=== PATIENT | male | born 1965 | race Two or more races ===

== ENCOUNTER 2022-05-02 16:31 | Inpatient (IN) | payer MEDICAID, OTHER ==
[~2022-05-02] VITALS: Ht 180.3 cm; Wt 82.9 kg
[2022-05-02] MEDS ORDERED: HYDROmorphone HCL 2 MG/ML VL/or syr IV ONE (18:00)
[2022-05-02] MEDS ORDERED: METOCLOPRAMIDE HCL 5MG/ml INJ 2ml VIAL IV ONE (18:00)
[2022-05-02 18:28] LABS: Basophils # (auto) 0.1 10 ^3/uL (0-0.2); Basophils % (auto) 0.3 % (0.0-2.0); Eosinophils # (auto) 0.2 10 ^3/uL (0-0.8); Eosinophils % (auto) 1.3 % (0.0-7.0); Hematocrit 50.9 % (41.0-53.0); Hemoglobin 16.5 g/dL (13.5-17.5); Lymphocytes # (auto) 2.6 10 ^3/uL (0.4-5.4); Mean Corpuscular Hemoglobin 28.3 pg (28.0-32.0); Mean Corpuscular Hgb Conc. 32.3 g/dL (32.0-36.0); Mean Corpuscular Volume 87.4 fL (80.0-100.0); Monocytes # (auto) 0.7 10 ^3/uL (0-1.3); Monocytes % (auto) 4.6 % (0.0-12.0); Neutrophils # (auto) 11.7 10 ^3/uL (1.6-8.6); Neutrophils % (auto) 76.8 % (37.0-80.0); Red Blood Cells 5.83 10^6/uL (4.5-5.90); Red Cell Distribution Width 14.9 % (11.8-14.3); White Blood Cell 15.2 10^3/uL (4.4-10.8)
[2022-05-02 18:44] LABS: Albumin 4.3 g/dL (3.4-5.0); Calcium 9.1 mg/dL (8.5-10.1); Magnesium 2.6 mg/dL (1.6-2.6); Potassium 3.6 mmol/L (3.5-5.1)
[2022-05-02 18:47] LABS: BUN/Creatinine Ratio 16.2; Bilirubin, Total 0.3 mg/dL (0.2-1.0); Total Protein 8.1 g/dL (6.4-8.2)
[2022-05-02] MEDS ORDERED: SODIUM CHLORIDE 0.9% 1,000 ML IV ONE (19:30)
[2022-05-02 20:21] LABS: INR 1.02 (0.9-1.15); Partial Thromboplastin Time 26.4 sec (24.6-33.4)
[2022-05-02 21:04] LABS: Urine Bacteria NONE SEEN /hpf (None Seen); Urine Blood Negative /uL (Negative); Urine Hyaline Cast FEW /lpf (0 - 2); Urine Mucus FEW (None Seen); Urine WBC 3 /hpf (0 - 3)
[2022-05-02] MEDS ORDERED: TEMAZEPAM 15 MG CAP PO PRN (21:30)
[2022-05-02] MEDS ORDERED: ACETAMINOPHEN 325 MG TAB PO PRN (21:30)
[2022-05-02] MEDS ORDERED: PANTOPRAZOLE 40 MG TAB PO ONE (21:30)
[2022-05-02] MEDS ORDERED: cefTRIAXone 1GM/50ML D5W 50 ML IV ONE (21:30)
[2022-05-02] MEDS: HYDROcodone-ACET 5/325MG TAB PO PRN (22:01)
[2022-05-02] MEDS: levETIRAcetam 500 MG TAB PO SCH (22:03)
[2022-05-03] MEDS: ONDANSETRON HCL 4 MG/2 ML VIAL IV PRN (00:07)
[2022-05-03] MEDS: cloNIDine HCL 0.1 MG TAB PO PRN (00:08)
[2022-05-03] MEDS ORDERED: KETOROLAC TROMETH 30 MG/ML 1ML VIAL IV ONE (04:45)
[2022-05-03] MEDS ORDERED: hydrALAZINE HCL 20 MG/ML VL IV ONE (04:45)
[2022-05-03] MEDS: buPROPion HCL 75 MG TAB PO SCH ×2 (07:36→18:33)
[2022-05-03] MEDS: PANTOPRAZOLE 40 MG TAB PO SCH (09:28)
[2022-05-03] MEDS: lamoTRIgine 100 MG TAB PO SCH (09:28)
[2022-05-03] MEDS: amLODIPine BESYLATE 5 MG TAB PO SCH (09:29)
[2022-05-03] MEDS: ENOXAPARIN SOD 40 MG/0.4 ML SYRINGE SC SCH (09:29)
[2022-05-03] MEDS: levETIRAcetam 500 MG TAB PO SCH ×2 (09:29→21:15)
[2022-05-03] MEDS ORDERED: lamoTRIgine 25 MG TAB PO SCH (10:00)
[2022-05-03] MEDS: KETOROLAC TROMETH 30 MG/ML 1ML VIAL IV PRN ×2 (12:57→18:33)
[2022-05-03 13:00] VITALS: BP 145/95
[2022-05-03 13:39] LABS: Basophils # (auto) 0.1 10 ^3/uL (0-0.2); Basophils % (auto) 0.5 % (0.0-2.0); Eosinophils # (auto) 0 10 ^3/uL (0-0.8); Eosinophils % (auto) 0.1 % (0.0-7.0); Hematocrit 52.4 % (41.0-53.0); Hemoglobin 16.7 g/dL (13.5-17.5); Lymphocytes # (auto) 2.2 10 ^3/uL (0.4-5.4); Lymphocytes % (auto) 13.5 % (10.0-50.0); Mean Corpuscular Hemoglobin 28.2 pg (28.0-32.0); Mean Corpuscular Hgb Conc. 31.9 g/dL (32.0-36.0); Mean Corpuscular Volume 88.3 fL (80.0-100.0); Monocytes # (auto) 1.1 10 ^3/uL (0-1.3); Monocytes % (auto) 7.2 % (0.0-12.0); Neutrophils # (auto) 12.6 10 ^3/uL (1.6-8.6); Neutrophils % (auto) 78.7 % (37.0-80.0); Red Blood Cells 5.93 10^6/uL (4.5-5.90); Red Cell Distribution Width 14.5 % (11.8-14.3)
[2022-05-03 13:44] LABS: Calcium 8.9 mg/dL (8.5-10.1); Potassium 4.3 mmol/L (3.5-5.1)
[2022-05-03 13:48] LABS: BUN/Creatinine Ratio 11.3; Bilirubin, Total 0.6 mg/dL (0.2-1.0); Total Protein 7.8 g/dL (6.4-8.2)
[2022-05-03] MEDS: HYDROcodone-ACET 5/325MG TAB PO PRN ×2 (14:57→19:58)
[2022-05-03 17:00] VITALS: BP 156/103
[2022-05-03] MEDS: metroNIDAZOLE 500MG/100ML 100 ML IV SCH (18:33)
[2022-05-03] MEDS: cefTRIAXone 1GM/50ML D5W 50 ML IV SCH (21:15)
[2022-05-03 22:00] VITALS: BP 129/78
[2022-05-04] MEDS: metroNIDAZOLE 500MG/100ML 100 ML IV SCH ×4 (00:22→18:11)
[2022-05-04] MEDS: HYDROcodone-ACET 5/325MG TAB PO PRN ×3 (01:06→12:57)
[2022-05-04] MEDS: KETOROLAC TROMETH 30 MG/ML 1ML VIAL IV PRN ×3 (04:05→18:12)
[2022-05-04] MEDS: ONDANSETRON HCL 4 MG/2 ML VIAL IV PRN ×2 (04:13→20:51)
[2022-05-04 05:52] VITALS: BP 158/99
[2022-05-04 06:14] LABS: Basophils # (auto) 0 10 ^3/uL (0-0.2); Basophils % (auto) 0.5 % (0.0-2.0); Eosinophils # (auto) 0.1 10 ^3/uL (0-0.8); Eosinophils % (auto) 1.1 % (0.0-7.0); Hematocrit 48.1 % (41.0-53.0); Hemoglobin 16.3 g/dL (13.5-17.5); Lymphocytes # (auto) 2.4 10 ^3/uL (0.4-5.4); Lymphocytes % (auto) 23.9 % (10.0-50.0); Mean Corpuscular Hemoglobin 29.8 pg (28.0-32.0); Mean Corpuscular Hgb Conc. 33.9 g/dL (32.0-36.0); Mean Corpuscular Volume 87.9 fL (80.0-100.0); Monocytes # (auto) 0.9 10 ^3/uL (0-1.3); Monocytes % (auto) 9.1 % (0.0-12.0); Neutrophils # (auto) 6.5 10 ^3/uL (1.6-8.6); Neutrophils % (auto) 65.4 % (37.0-80.0); Nucleated Red Blood Cells % 0.1 %; Red Blood Cells 5.47 10^6/uL (4.5-5.90); Red Cell Distribution Width 14.6 % (11.8-14.3); White Blood Cell 9.9 10^3/uL (4.4-10.8)
[2022-05-04 06:27] LABS: BUN/Creatinine Ratio 15.7; Calcium 8.9 mg/dL (8.5-10.1); Potassium 4.2 mmol/L (3.5-5.1)
[2022-05-04] MEDS: buPROPion HCL 75 MG TAB PO SCH ×2 (06:30→18:12)
[2022-05-04] MEDS: ENOXAPARIN SOD 40 MG/0.4 ML SYRINGE SC SCH (08:30)
[2022-05-04] MEDS: levETIRAcetam 500 MG TAB PO SCH ×2 (08:31→20:40)
[2022-05-04] MEDS: PANTOPRAZOLE 40 MG TAB PO SCH (08:31)
[2022-05-04] MEDS: lamoTRIgine 100 MG TAB PO SCH (08:32)
[2022-05-04] MEDS: amLODIPine BESYLATE 5 MG TAB PO SCH (08:35)
[2022-05-04 09:00] VITALS: BP 147/96
[2022-05-04 13:00] VITALS: BP 148/97
[2022-05-04 16:35] VITALS: BP 129/90
[2022-05-04] MEDS: cefTRIAXone 1GM/50ML D5W 50 ML IV SCH (20:40)
[2022-05-04 21:55] VITALS: BP 140/108
[2022-05-05] MEDS: metroNIDAZOLE 500MG/100ML 100 ML IV SCH ×4 (00:17→18:05)
[2022-05-05] MEDS: ONDANSETRON HCL 4 MG/2 ML VIAL IV PRN (01:57)
[2022-05-05] MEDS: KETOROLAC TROMETH 30 MG/ML 1ML VIAL IV PRN ×3 (01:57→18:15)
[2022-05-05] MEDS: cloNIDine HCL 0.1 MG TAB PO PRN (03:40)
[2022-05-05 05:00] VITALS: BP 140/93
[2022-05-05] MEDS: buPROPion HCL 75 MG TAB PO SCH ×2 (06:16→18:05)
[2022-05-05 08:00] VITALS: BP 106/80
[2022-05-05 08:58] VITALS: BP 106/80
[2022-05-05] MEDS: amLODIPine BESYLATE 5 MG TAB PO SCH (09:36)
[2022-05-05] MEDS: levETIRAcetam 500 MG TAB PO SCH ×2 (09:36→21:15)
[2022-05-05] MEDS: lamoTRIgine 100 MG TAB PO SCH (09:36)
[2022-05-05] MEDS: ENOXAPARIN SOD 40 MG/0.4 ML SYRINGE SC SCH (09:37)
[2022-05-05 13:00] VITALS: BP_SYST 124; BP_SYST 127; BP_DIAS 67; BP_DIAS 68
[2022-05-05] MEDS ORDERED: diphenhdrAMINE HCL 50 MG/1 ML VL ONE (15:06)
[2022-05-05 17:00] VITALS: BP 113/84
[2022-05-05] MEDS: cefTRIAXone 1GM/50ML D5W 50 ML IV SCH (21:15)
[2022-05-05] MEDS: HYDROcodone-ACET 5/325MG TAB PO PRN (21:26)
[2022-05-05 22:00] VITALS: BP 119/77
[2022-05-06] MEDS: metroNIDAZOLE 500MG/100ML 100 ML IV SCH ×5 (00:49→23:38)
[2022-05-06 05:00] VITALS: BP 134/94
[2022-05-06] MEDS: buPROPion HCL 75 MG TAB PO SCH ×2 (06:26→18:06)
[2022-05-06 08:00] VITALS: BP 138/98
[2022-05-06 09:08] VITALS: BP 138/98
[2022-05-06] MEDS: lamoTRIgine 100 MG TAB PO SCH (09:09)
[2022-05-06] MEDS: levETIRAcetam 500 MG TAB PO SCH ×2 (09:09→21:38)
[2022-05-06] MEDS: ENOXAPARIN SOD 40 MG/0.4 ML SYRINGE SC SCH (09:10)
[2022-05-06] MEDS: amLODIPine BESYLATE 5 MG TAB PO SCH (09:10)
[2022-05-06 12:49] VITALS: BP 130/80
[2022-05-06 16:48] VITALS: BP 133/77
[2022-05-06] MEDS: cefTRIAXone 1GM/50ML D5W 50 ML IV SCH (20:40)
[2022-05-06 22:00] VITALS: BP 163/120
[2022-05-06] MEDS: cloNIDine HCL 0.1 MG TAB PO PRN (22:33)
[2022-05-07] MEDS: KETOROLAC TROMETH 30 MG/ML 1ML VIAL IV PRN (02:29)
[2022-05-07 05:00] VITALS: BP 118/81
[2022-05-07] MEDS: metroNIDAZOLE 500MG/100ML 100 ML IV SCH ×3 (06:09→18:00)
[2022-05-07] MEDS: buPROPion HCL 75 MG TAB PO SCH (06:17)
[2022-05-07 09:30] VITALS: BP 133/84
[2022-05-07] MEDS: ENOXAPARIN SOD 40 MG/0.4 ML SYRINGE SC SCH (10:20)
[2022-05-07] MEDS: amLODIPine BESYLATE 5 MG TAB PO SCH (10:20)
[2022-05-07] MEDS: levETIRAcetam 500 MG TAB PO SCH (10:20)
[2022-05-07] MEDS: lamoTRIgine 100 MG TAB PO SCH (10:20)
[2022-05-07 12:39] VITALS: BP 129/92
[2022-05-07] MEDS ORDERED: CEPH-322 PO (14:11)
[2022-05-07] MEDS ORDERED: METR500T PO (14:11)
[2022-05-07 16:48] VITALS: BP 128/90
[2022-05-07 17:26] VITALS: BP 133/84
== END 2022-05-07 18:36 | disposition home or self-care (01) | DRG 249 ==
LOC: ER 16:31 → OVERFLOW 21:33 → WEST WING 23:53
PROVIDERS: ADMIT Nurse Practitioner; ATTEND Hospitalist
DX: K52.9 Noninfective gastroenteritis and colitis, unspecified (principal); F17.210 Nicotine dependence, cigarettes, uncomplicated; I10 Essential (primary) hypertension; R73.9 Hyperglycemia, unspecified; G40.909 Epilepsy, unspecified, not intractable, without status epilepticus; Z20.822 Contact with and (suspected) exposure to COVID-19; Z86.73 Personal history of transient ischemic attack (TIA), and cerebral infarction without residual deficits
CPT/HCPCS: 36415; 71045; 74176; 80048; 80053; 81001; 83605; 83690; 83735; 84443; 84484; 85025; 85610; 85730; 93005; 96361; 96365; 96375; G0378; J0696; J1885; J2405; J3490

== ENCOUNTER 2023-08-27 08:48 | Emergency (ER) | payer MEDICAID ==
[~2023-08-27] VITALS: Ht 177.8 cm; Wt 74.7 kg
[~2023-08-27 08:48] MED LIST: CEPH250C PO; METR500T PO
[2023-08-27 09:19] VITALS: BP 179/118; RESP 18; O2SAT 98
[2023-08-27 09:23] VITALS: PULSE 67
[2023-08-27] MEDS ORDERED: cloNIDine HCL 0.1 MG TAB ONE (09:23)
[2023-08-27] MEDS ORDERED: cloNIDine HCL 0.1 MG TAB PO ONE (09:30)
[2023-08-27 09:38] LABS: Basophils # (auto) 0.1 10 ^3/uL (0-0.2); Eosinophils # (auto) 0.1 10 ^3/uL (0-0.8); Eosinophils % (auto) 0.5 % (0.0-7.0); Hemoglobin 18.6 g/dL (13.5-17.5); Lymphocytes # (auto) 1.4 10 ^3/uL (0.4-5.4); Nucleated Red Blood Cells % 0.2 %
[2023-08-27 09:40] LABS: Basophils % (auto) 0.6 % (0.0-2.0); Hematocrit 55.4 % (41.0-53.0); Lymphocytes % (auto) 10.3 % (10.0-50.0); Mean Corpuscular Hemoglobin 30.2 pg (28.0-32.0); Mean Corpuscular Hgb Conc. 33.6 g/dL (32.0-36.0); Mean Corpuscular Volume 89.7 fL (80.0-100.0); Monocytes # (auto) 0.7 10 ^3/uL (0-1.3); Neutrophils # (auto) 11.6 10 ^3/uL (1.6-8.6); Neutrophils % (auto) 83.6 % (37.0-80.0); Red Blood Cells 6.18 10^6/uL (4.5-5.90); Red Cell Distribution Width 13.4 % (11.8-14.3); White Blood Cell 13.9 10^3/uL (4.4-10.8)
[2023-08-27 09:57] LABS: INR 1.17 (0.9-1.15); Partial Thromboplastin Time 30.6 SEC (24.5-34.5); Prothrombin Time 12.2 sec (9.3-11.8)
[2023-08-27 10:03] LABS: Alanine Aminotransferase 32 U/L (7-40); Albumin 4.9 g/dL (3.2-4.8); Alkaline Phosphatase 58 U/L (46-116); Anion Gap 4 (5-15); Aspartate Aminotransferase 22 U/L (13-40); BUN/Creatinine Ratio 14.7 (10.0-20.0); Bilirubin, Total 0.5 mg/dL (0.2-1.0); Blood Urea Nitrogen 16 mg/dL (9-23); Calcium 9.9 mg/dL (8.5-10.1); Carbon Dioxide 29 mmol/L (20-30); Chloride 104 mmol/L (98-107); Glucose 107 mg/dL (74-106); Sodium 137 mmol/L (136-145); Total Protein 7.5 g/dL (5.7-8.2)
[2023-08-27 10:25] LABS: Magnesium 2.5 mg/dL (1.6-2.6)
[2023-08-27] MEDS ORDERED: CLOPIDOGREL BISULFATE 75 MG TAB PO ONE (10:45)
[2023-08-28] MEDS ORDERED: LEVE500T40 PO (19:33)
== END 2023-08-27 12:50 | disposition left against medical advice (07) ==
LOC: ER 08:48
DX: G45.9 Transient cerebral ischemic attack, unspecified (principal); I10 Essential (primary) hypertension; F17.210 Nicotine dependence, cigarettes, uncomplicated; Z86.73 Personal history of transient ischemic attack (TIA), and cerebral infarction without residual deficits
CPT/HCPCS: 36415; 70450; 71045; 80053; 82962; 83735; 83880; 84484; 85025; 85610; 85730; 93005

== ENCOUNTER 2023-08-28 17:52 | Emergency (ER) | payer MEDICAID ==
[~2023-08-28] VITALS: Ht 177.8 cm; Wt 75.0 kg
[2023-08-28] MEDS ORDERED: levETIRAcetam 1000 mg/100ml 100 ML IV ONE (18:30)
[2023-08-28 19:04] LABS: Basophils # (auto) 0.1 10 ^3/uL (0-0.2); Basophils % (auto) 0.7 % (0.0-2.0); Eosinophils # (auto) 0.2 10 ^3/uL (0-0.8); Hematocrit 52.7 % (41.0-53.0); Hemoglobin 17.6 g/dL (13.5-17.5); Lymphocytes # (auto) 2.8 10 ^3/uL (0.4-5.4); Lymphocytes % (auto) 24.6 % (10.0-50.0); Mean Corpuscular Hemoglobin 29.9 pg (28.0-32.0); Mean Corpuscular Hgb Conc. 33.3 g/dL (32.0-36.0); Mean Corpuscular Volume 89.6 fL (80.0-100.0); Monocytes # (auto) 0.9 10 ^3/uL (0-1.3); Monocytes % (auto) 7.8 % (0.0-12.0); Neutrophils # (auto) 7.5 10 ^3/uL (1.6-8.6); Neutrophils % (auto) 64.9 % (37.0-80.0); Nucleated Red Blood Cells % 0.2 %; Red Blood Cells 5.88 10^6/uL (4.5-5.90); Red Cell Distribution Width 13.4 % (11.8-14.3); White Blood Cell 11.5 10^3/uL (4.4-10.8)
[2023-08-28 19:23] LABS: Alanine Aminotransferase 26 U/L (7-40); Albumin 4.7 g/dL (3.2-4.8); Alkaline Phosphatase 59 U/L (46-116); Anion Gap 7 (5-15); Aspartate Aminotransferase 22 U/L (13-40); BUN/Creatinine Ratio 16.2 (10.0-20.0); Bilirubin, Total 0.4 mg/dL (0.2-1.0); Blood Urea Nitrogen 17 mg/dL (9-23); Calcium 9.3 mg/dL (8.7-10.4); Carbon Dioxide 27 mmol/L (20-30); Chloride 102 mmol/L (98-107); Glucose 92 mg/dL (74-106); Potassium 4.5 mmol/L (3.5-5.1); Sodium 136 mmol/L (136-145); Total Protein 7.4 g/dL (5.7-8.2)
[2023-08-28] MEDS ORDERED: LEVE500T40 PO (19:33)
[2023-08-28 22:06] VITALS: BP 159/80; PULSE 71; RESP 20; TEMP 97.5; O2SAT 97
== END 2023-08-28 22:08 | disposition home or self-care (01) ==
LOC: ER 17:52
DX: G40.909 Epilepsy, unspecified, not intractable, without status epilepticus (principal); I10 Essential (primary) hypertension; F17.210 Nicotine dependence, cigarettes, uncomplicated; F15.90 Other stimulant use, unspecified, uncomplicated; Z86.73 Personal history of transient ischemic attack (TIA), and cerebral infarction without residual deficits; Z79.899 Other long term (current) drug therapy
CPT/HCPCS: 36415; 70450; 80053; 80320; 85025; 93005; 96374; 99285; J1953

== ENCOUNTER 2024-12-24 14:22 | Inpatient (IN) | payer MEDICAID, OTHER ==
[~2024-12-24] VITALS: Ht 180.3 cm; Wt 73.1 kg
[2024-12-24] VITALS (28 sets, daily range): BP systolic 111–184; BP diastolic 67–117; PULSE 76–103; RESP 17–28; TEMP 32.5; O2SAT 96–100
[~2024-12-24 14:22] MED LIST changes: +AMLO1TAB22 PO; +ASPI325T6 PO; +BUPR-346 PO; -CEPH250C PO; +LACO200T PO; -METR500T PO; +OMEP20TA PO
[2024-12-24] MEDS: ETOMIDATE (2MG/ML) 20ML VIAL IV ONE (14:22)
[2024-12-24] MEDS: SUCCINYLCHOLINE CHLORIDE 20 MG/ML 10ML VIAL IV ONE (14:23)
[2024-12-24] MEDS: MIDAZOLAM DRIP 50 mg/50mL 50 ML IV SCH (14:27)
--- NOTE | 2024-12-24 14:33 | ED.PDOC ---
HPI (NEURO) HPI Comments 59 y.o male presents to the ED via EMS s/p seizure. EMS reports patient's girlfriend called 911 after patient began seizing. EMS reports patient was seizing for about half an hour and gave 5mg of versed. Girlfriend was a poor historian, unable to obtain any medical history. Patient resides in a mobile home with girlfriend and no family member was present. Patient also had a blood glucose of 400 on scene and had nonreactive pupils. 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 Nanny, Oxygen, Treatment (5mg Versed ) Seizure Quality: Tonic-clonic History of: Other (unknown/unobtainable ) Modifying factors: Other Associated Signs and Symptoms: Altered Mental Status Past Medical History PAST MEDICAL HISTORY: Unobtainable Surgical History: Unobtainable Family History Family History: Unobtainable Social History Smoker: Unobtainable Alcohol: Unobtainable Drugs: Unobtainable Lives In: Unobtainable Constitutional: denies: chills, diaphoresis, fatigue, fever, malaise, sweats, weakness, others EENTM: denies: blurred vision, double vision, ear bleeding, ear discharge, ear drainage, ear pain, ear ringing, eye pain, eye redness, hearing loss, mouth pa in, mouth swelling, nasal discharge, nose bleeding, nose congestion, nose pain, photophobia, tearing, throat pain, throat swelling, voice changes, others Respiratory: reports: shortness of breath; denies: cough, hemoptysis, orthopnea, SOB at rest, SOB with excertion, stridor, wheezing, others Cardiovascular: denies: chest pain, dizzy spells, diaphoresis, Dyspnea on exertion, edema, irregular heart beat, left arm pain, lightheadedness, palpitat ions, PND, syncope, others Gastrointestinal: denies: abdomen distended, abdominal pain, blood streaked bow els, constipated, diarrhea, dysphagia, difficulty swallowing, hematemesis, melena, nausea, poor appetite, poor fluid intake, rectal bleeding, rectal pain, vomiting, others Genitourinary: denies: burning, dysuria, flank pain, frequency, hematuria, incontinence, penile discharge, penile sore, pain, testicle pain, testicle swelling, urgency, others Neurological: reports: seizure; denies: dizziness, fainting, headache, left sided numbness, left sided weakness, numbness, paresthesia, pre-existing deficit, right sided numbness, right sided weakness, speech problems, tingling, tremors, weakness, others Musculoskeletal: denies: back pain, gout, joint pain, joint swelling, muscle p ain, muscle stiffness, neck pain, others Integumetry: denies: bruises, change in color, change in hair/nails, dryness, laceration, lesions, lumps, rash, wounds, others Allergic/Immunocompromised: denies: Difficulty Healing, Frequent Infections, Hives, Itching, others Hematologic/Lymphatic: denies: anemia, blood clots, easy bleeding, easy bruising, swollen glands, others Endocrine: denies: excessive hunger, excessive sweating, excessive thirst, excessive urination, flushing, intolerance to cold, intolerance to heat, unexplained weight gain, unexplained weight loss, others Psychiatric: denies: anxiety, bipolar disorder, depression, hopeless, panic disorder, schizophrenia, sleepless, suicidal, others Unable to Obtain due to: Altered Mental Status Physical Exam General Appearance: Severe Distress, Other (Altered level of consciousness) HEENT: Normal ENT Inspection, Pharynx Normal, TMs Normal Neck: Full Range of Motion, Non-Tender, Normal, Normal Inspection Respiratory: Chest Non-Tender, Lungs Clear, No Accessory Muscle Use, No Respiratory Distress, Normal Breath Sounds Cardiovascular: No Edema, No JVD, No Murmur, No Gallop, Tachycardia Breast Exam: Deferred Gastrointestinal: No Organomegaly, Non Tender, No Pulsatile Mass, Normal Bowel Sounds, Soft Genitalia: Deferred Pelvic: Deferred Rectal: Deferred Extremities: No calf tenderness, Normal capillary refill, Normal inspection, Normal range of motion, Non-tender, No pedal edema Musculoskeletal : Apperance: Normal Neurologic: automobile taillight assembler II-XII nml as Tested, Motor Weakness, No Sensory Deficits, Other (Altered level of consciousness.) Cerebellar Function: Unable to Test Reflexes: Normal Skin: Dry, Pallor, Warm Lymphatic: No Adenopathy EKG EKG : Pulse Rate (adult): 104 Cardiac Rhythm: ST Was a procedure done? Was a procedure done?: Yes Sedation Sedation?: Yes Informed consent obtained: No (Patient is unresponsive and no family at bedside. ) Sedation start time: 14:22 Sedation end time: 14:32 Sedation total time: Intubation protocols Central Line Recorder of insertion practice: Digital Marketing Apprentice Occupation of fisher trot line: Attending Physician Indication: CVP monitoring Room prepared for procedure: Yes Digital Marketing Apprentice performed hand hygien: Yes Maximal sterile barrier precau: Mask/Eye shield, Sterile gown, Cap, Sterlie gloves, Large sterlie drape Skin Preparation: Providine iodine Skin preparation completely dr: Yes Insertion site: Internal jugular Central line catheter type: Tunneled- not dialysis Number of lumens: 3 Central line exchanged over a: Yes Antiseptic ointment applied to: Yes Post Assessment: Chest X-Ray, Proper placement Informed consent obtained: No (Patient is unresponsive and no family at bedside. ) Risks/benefits/alt described: No (Patient is unresponsive and no family at bedside. ) Notes ultrasound guided procedure Intubation Indication: Respiratory Insufficiency, Altered Mental Status, Airway Protection Prep: Preoxygenation Pretreated with: Sedation Medicated with: Succinylcholine (80mg ), Other (Etomidate 20mg ) Intubation Approach: Orotracheal Intubation size: cm (8.0 inch tube ) Informed consent obtained: No (Patient is unresponsive and no family at bedside. ) Risks/benefits/alt described: No (Patient is unresponsive and no family at bedside. ) Differential Diagnosis (SZ) Seizure: Psychogenic Seizure, Closed Head Injury, CVA/TIA, Syncope, Encephalopathy, Epilepsy-Break Through, Epilepsy-Status General Weakness: Dehydration, Electrolyte imbalance X-Ray, Labs, Meds, VS Vital Signs Date Time Temp Pulse Resp B/P (MAP) Pulse Ox O2 Delivery O2 Flow Rate FiO2 12/24/24 17:00 146/86 12/24/24 16:30 149/97 12/24/24 16:17 82 170/115 12/24/24 16:10 97.5 87 20 172/112 100 60.0 97.5 12/24/24 16:00 173/115 12/24/24 15:49 83 20 184/117 (139) 100 60 12/24/24 15:42 97.5 87 20 172/112 (132) 100 97.5 12/24/24 15:30 172/112 12/24/24 15:05 103 18 100 T-piece 15 N/A 12/24/24 15:00 166/104 12/24/24 15:00 98.1 97 23 160/112 (128) 98 98.1 12/24/24 14:33 104 12/24/24 14:27 143/103 12/24/24 14:26 104 12/24/24 14:25 103 22 166/104 (124) 99 100 12/24/24 14:24 117 24 143/103 (116) 96 12/24/24 14:22 126 20 156/110 (125) 100 Lab Test 12/24/24 15:41 12/24/24 14:55 12/24/24 14:40 Range/Units Blood Gas Specimen Type Arterial Blood Gas Sample Site Left radial Blood Gas Patient Temperature 37.0 Arterial Blood Date Drawn [id number] Arterial Blood pH 7.353 7.350-7.450 Arterial Blood Partial Pressure CO2 41.5 35.0-48.0 mmHg Arterial Blood Partial Pressure O2 419.7 *H 83.0-108.0 mmHg Arterial Blood HCO3 22.6 21.0-28.0 mmol/L Arterial Blood Oxygen Saturation 99.7 H 94.0-98.0 % Arterial Blood Base Excess -2.9 L -2.0-3.0 mmol/L Arterial Blood Oxyhemoglobin 98.1 H 94.0-98.0 % Arterial Blood Carboxyhemoglobin 0.7 0.5-1.5 % Arterial Blood Methemoglobin 0.9 0.0-1.5 % [place]ar Test Modified Blood Gas Total Hemoglobin 16.70 13.5-17.5 g/dL Blood Gas Set Respiration Rate 18.0 Blood Gas Modality Vent - ac FiO2 % 100.0 Blood Gas Tidal Volume 450.0 Blood Gas PEEP or CPAP 5.0 Blood Gas Critical Value Read Back Yes Blood Gas Notified Whom emory Ayala Blood Gas Notified Time [id number] Blood Gas Notified By james Bwoman Urine Color Light-yellow Yellow Urine Clarity Turbid H Clear Urine pH 6.5 5.0-9.0 Urine Specific [place] 1.015 1.001-1.035 Urine Protein 3+ H Negative Urine Ketones Trace Negative Urine Blood 2+ H Negative /uL Urine Nitrite Negative Negative Urine Bilirubin Negative Negative Urine Urobilinogen Normal Negative mg/dL Urine Leukocyte Esterase Trace Negative /uL Urine RBC 7 0 - 3 /hpf Urine Microscopic WBC 37 H 0-3 /HPF Urine Squamous Epithelial Cells Few <5 /hpf Urine Bacteria Few H None Seen /hpf Urine Hyaline Casts Mod 0 - 2 /lpf Urine Mucus Few None Seen Urine Glucose 3+ H Normal mg/dL Urine Opiates Screen Neg NEGATIVE Urine Fentanyl Screen Neg NEGATIVE Urine Barbiturates Screen Neg NEGATIVE Urine Phencyclidine Screen Neg NEGATIVE Urine Amphetamines Screen Neg NEGATIVE Urine Benzodiazepines Screen Pos NEGATIVE Urine Cocaine Screen Neg NEGATIVE Urine Cannabinoids Screen Pos NEGATIVE White Blood Count 23.5 H 4.4-10.8 10^3/uL Red Blood Count 5.70 4.5-5.90 10^6/uL Hemoglobin 16.7 13.5-17.5 g/dL Hematocrit 51.9 41.0-53.0 % Mean Corpuscular Volume 91.0 80.0-100.0 fL Mean Corpuscular Hemoglobin 29.4 28.0-32.0 pg Mean Corpuscular Hemoglobin Concent 32.3 32.0-36.0 g/dL Red Cell Distribution Width 14.5 H 11.8-14.3 % Platelet Count 319 140-450 10^3/uL Mean Platelet Volume 8.0 6.9-10.8 fL Neutrophils (%) (Auto) 94.6 H 37.0-80.0 % Lymphocytes (%) (Auto) 3.7 L 10.0-50.0 % Monocytes (%) (Auto) 1.6 0.0-12.0 % Eosinophils (%) (Auto) 0.0 0.0-7.0 % Basophils (%) (Auto) 0.1 0.0-2.0 % Neutrophils # (Auto) 22.2 H 1.6-8.6 10 ^3/uL Lymphocytes # (Auto) 0.9 0.4-5.4 10 ^3/uL Monocytes # (Auto) 0.4 0-1.3 10 ^3/uL Eosinophils # (Auto) 0 0-0.8 10 ^3/uL Basophils # (Auto) 0 0-0.2 10 ^3/uL Nucleated Red Blood Cells 0.0 % Sodium Level 140 136-145 mmol/L Potassium Level 4.0 3.5-5.1 mmol/L Chloride Level 99 98-107 mmol/L Carbon Dioxide Level 23 20-31 mmol/L Anion Gap 18 H 5-15 Blood Urea Nitrogen 18 9-23 mg/dL Creatinine 1.68 H 0.700-1.30 mg/dL Glomerular Filtration Rate Calc 46 >90 mL/min BUN/Creatinine Ratio 10.7 10.0-20.0 Serum Glucose 272 H 74-106 mg/dL Calcium Level 9.4 8.7-10.4 mg/dL Total Bilirubin 0.4 0.2-1.0 mg/dL Aspartate Amino Transferase (AST) 29 13-40 U/L Alanine Aminotransferase (ALT) 18 7-40 U/L Alkaline Phosphatase 75 46-116 U/L Total Protein 7.6 5.7-8.2 g/dL Albumin 4.9 H 3.2-4.8 g/dL Salicylates Level < 3.0 -30 mg/dL Acetaminophen Level < 2.0 L 10.0-20.0 UG/ML Plasma/Serum Blood Alcohol < 3.0 <10 mg/dL Current Medications Medications (Trade) Dose Ordered Sig/Cristofer Route Start Time Stop Time Status Last Admin Sodium Chloride 1,000 ml @ 1,000 mls/hr Q1H ONCE IVB 12/24/24 14:30 12/24/24 15:29 DC 12/24/24 14:53 Midazolam HCl 50 ml @ 1 mls/hr Q24H IV 12/24/24 15:15 12/24/24 17:31 Etomidate 20 mg ONCE ONCE IV 12/24/24 15:15 12/24/24 15:16 DC 12/24/24 14:22 Succinylcholine Chloride (Quelicin) 80 mg ONCE ONCE IV 12/24/24 15:15 12/24/24 15:16 DC 12/24/24 14:23 Levetiracetam 100 ml @ 400 mls/hr ONCE ONCE IV 12/24/24 15:45 12/24/24 15:59 DC 12/24/24 15:55 Nicardipine HCl 250 ml @ 50 mls/hr Q5H IV 12/24/24 16:00 12/24/24 16:17 EXAM: CT HEAD WITHOUT CONTRAST IMPRESSION: 1. No acute intracranial process. HS:Y The chest x-ray shows: Findings/Impression: Frontal chest radiograph demonstrates no acute osseous or superficial soft tissue abnormalities. Right IJ catheter terminates in the right atrium. Endotracheal tube terminates 5.8 cm from the ezra. The enteric tube is seen descending down into the stomach with the distal tip not visualized. The trachea is midline. The cardiac silhouette and mediastinum are within normal limits. No pneumothorax, pleural effusions, or consolidations. At this time, the patient was intubated upon arrival. The patient is being sedated with Versed at this time. For the intubation we did use succinylcholine as well as etomidate. Todd catheter was placed. The NG tube was placed after the patient was intubated The central line was placed without any difficulty At this time, the patient was being admitted The patient was somewhat hypertensive so the patient was started on nicardipine for hypertensive crisis There is no family at this time at the bedside Images Reviewed?: Images reviewed and evaluated by me Time of 1ST Reevaluation: 14:26 Reevaluation 1ST: Unchanged Patient Education/Counseling: Pt Unresponsive Family Education/Counseling: No Family Present Departure 1 Departure Time of Disposition: 17:52 Impression: Primary Impression: Status epilepticus Additional Impression: Acute respiratory failure Qualified Codes: J96.01 - Acute respiratory failure with hypoxia Disposition: ADMITTED INPATIENT Admit to: ICU Condition: Fair Critical Care Note Critical Care Time?: Yes (45 min-critical care time only) Stability Stability form required: Yes Unstable for transfer: ICU, CCU, PCU, OLEKSANDR (Intensive VS monitoring), ED Physician Assesment (Clinical assesment) I personally scribed for DEANN FELTON MD ([email or web address]) on 12/24/24 at 14:33. Electronically submitted by Makayla Nielsen ([facility]). I personally scribed for DEANN FELTON MD ([email or web address]) on 12/24/24 at 15:42. Electronically submitted by Makayla Nielsen ([facility]). I personally scribed for DEANN FELTON MD ([email or web address]) on 12/24/24 at 16:17. Electronically submitted by Makayla Nielsen ([facility]). DEANN FELTON MD Dec 24, 2024 14:33
[2024-12-24] MEDS: SODIUM CHLORIDE 0.9% 1,000 ML IVB ONE (14:53)
[2024-12-24 14:58] LABS: Basophils # (auto) 0 10 ^3/uL (0-0.2); Basophils % (auto) 0.1 % (0.0-2.0); Eosinophils # (auto) 0 10 ^3/uL (0-0.8); Hematocrit 51.9 % (41.0-53.0); Hemoglobin 16.7 g/dL (13.5-17.5); Lymphocytes # (auto) 0.9 10 ^3/uL (0.4-5.4); Lymphocytes % (auto) 3.7 % (10.0-50.0); Mean Corpuscular Hemoglobin 29.4 pg (28.0-32.0); Mean Corpuscular Hgb Conc. 32.3 g/dL (32.0-36.0); Monocytes # (auto) 0.4 10 ^3/uL (0-1.3); Monocytes % (auto) 1.6 % (0.0-12.0); Neutrophils # (auto) 22.2 10 ^3/uL (1.6-8.6); Neutrophils % (auto) 94.6 % (37.0-80.0); Platelet Count (auto) 319 10^3/uL (140-450); Red Cell Distribution Width 14.5 % (11.8-14.3); White Blood Cell 23.5 10^3/uL (4.4-10.8)
[2024-12-24] MEDS: MIDAZOLAM DRIP 50 mg/50mL 50 ML IV ONE (15:05)
--- NOTE | 2024-12-24 15:06 | DVH ---
EXAM: CT HEAD WITHOUT CONTRAST HISTORY: aloc COMPARISON: None TECHNIQUE: Axial images of the head were obtained and reformatted in coronal and sagittal planes. All CT scans at this medical facility are performed using dose modulation techniques as appropriate t o a performed exam including the following: Automated exposure control was utilized; adjustment of th e MA and/or KV according to patient size; and use of iterative reconstruction technique. CT Dose: CTDI volume is 65.28 mGy. Dose-length product is 1416.79 mGy*cm FINDINGS: There is no evidence of acute intracranial hemorrhage, mass, mass effect midline shift. There is no h ydrocephalus or extra-axial fluid collection. There are advanced chronic microvascular ischemic madrid ges in the supratentorial white matter. 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 The visualized paranasal sinuses and mastoid air cells are clear. The calvarium is intact. IMPRESSION: 1. No acute intracranial process. HS:Y
[2024-12-24 15:10] LABS: Alkaline Phosphatase 75 U/L (46-116); Anion Gap 18 (5-15); Aspartate Aminotransferase 29 U/L (13-40); Bilirubin, Total 0.4 mg/dL (0.2-1.0); Calcium 9.4 mg/dL (8.7-10.4); Carbon Dioxide 23 mmol/L (20-31); Chloride 99 mmol/L (98-107); Sodium 140 mmol/L (136-145); Total Protein 7.6 g/dL (5.7-8.2)
[2024-12-24 15:16] LABS: Acetaminophen < 2.0 UG/ML (10.0-20.0); Salicylate < 3.0 mg/dL (-30)
[2024-12-24 15:17] LABS: Alanine Aminotransferase 18 U/L (7-40)
[2024-12-24 15:18] LABS: Albumin 4.9 g/dL (3.2-4.8); Blood Alcohol < 3.0 mg/dL (<10); Glucose 272 mg/dL (74-106)
[2024-12-24 15:19] LABS: BUN/Creatinine Ratio 10.7 (10.0-20.0)
[2024-12-24 15:20] LABS: Blood Urea Nitrogen 18 mg/dL (9-23)
[2024-12-24 15:48] LABS: Base Excess -2.9 mmol/L (-2.0-3.0)
[2024-12-24 15:50] LABS: Urine Bacteria FEW /hpf (None Seen); Urine Blood 2+ /uL (Negative); Urine Clarity Turbid (Clear); Urine Color Light-Yellow (Yellow); Urine Hyaline Cast MOD /lpf (0 - 2); Urine Mucus FEW (None Seen); Urine Protein, UAD 3+ (Negative); Urine Specific Gravity 1.015 (1.001-1.035); Urine Squamous Epithelial Cell FEW /hpf (<5); Urine Urobilinogen Normal (Negative); Urine WBC 37 /HPF (0-3); Urine pH 6.5 (5.0-9.0)
[2024-12-24] MEDS: levETIRAcetam 1000 mg/100ml 100 ML IV ONE (15:55)
[2024-12-24 15:59] LABS: Amphetamine Screen, Urine Neg (NEGATIVE)
[2024-12-24 16:00] LABS: Cannabinoid Screen, Urine Pos (NEGATIVE)
[2024-12-24 16:07] LABS: Barbiturate Scree,Urine Neg (NEGATIVE); Benzodiazephine Screen, Urine Pos (NEGATIVE); Cocaine Screen, Urine Neg (NEGATIVE); Opiate Scree,Urine Neg (NEGATIVE); Phencyclidine Screen, Urine Neg (NEGATIVE)
--- NOTE | 2024-12-24 16:17 | DVH ---
EXAM: XY CHEST PORTABLE TECHNIQUE: Single frontal chest radiograph CLINICAL HISTORY: aloc COMPARISON: None Findings/Impression: Frontal chest radiograph demonstrates no acute osseous or superficial soft tissue abnormalities. Right IJ catheter terminates in the right atrium. Endotracheal tube terminates 5.8 cm from the ezra . The enteric tube is seen descending down into the stomach with the distal tip not visualized. The trachea is midline. The cardiac silhouette and mediastinum are within normal limits. No pneumothorax, pleural effusions, or consolidations.
[2024-12-24] MEDS ORDERED: ONDANSETRON HCL 4 MG/2 ML VIAL IV PRN (17:30)
[2024-12-24] MEDS ORDERED: MORPHINE SULFATE INJ 2 MG/ml SYRG IV PRN (17:30)
[2024-12-24] MEDS ORDERED: NITROGLYCERIN 0.4 MG SL TAB SL PRN (17:30)
[2024-12-24] MEDS ORDERED: DEXTROSE (50%) 50ML SYRG IV PRN (17:30)
--- NOTE | 2024-12-24 17:32 | DVHHP2 ---
History of Present Illness Reason for Visit: Acute respiratory failure History of Present Illness The patient is a 59-year-old male with unknown past medical history presented to [facility] ED with complaint of seizure. As reported by EMS, patient's girlfriend called 911 after patient having persistent seizure. When EMS arrived on the scene, patient was seizing for about an hour and was given 5 mg of Versed. Girlfriend was a poor historian, unable to obtain medical history. Patient was seen and evaluated in the ED with persistent seizure, acute respiratory failure, getting worse that he was intubated. Laboratory data shows WBC 23.5, platelets 319, sodium 140, potassium 4.0, BUN 18, creatinine 1.68, GFR 46, glucose 272, albumin 4.9, blood pressure 184/117 trending down to 146/86, heart rate 126 trending down to 82, temperature 97.6 F, O2 saturation 99% on ventilator. Head CT showed no acute intracranial process. On my assessment, patient is fully intubated, no diaphoresis, no vomiting, no fever, no chills. Patient was admitted for further evaluation and medical management. Past Medical History Unobtainable Past Surgical History Unobtainable Family History Unobtainable Past Social History The patient resides in a mobile home with girlfriend, no history of smoking, uses marijuana and benzodiazepine. Review of Systems Constitutional: Yes: Weakness; No: Fever, Chills, Sweats, Malaise, Other Eyes: No: Pain, Vision change, Conjunctivae inflammation, Eyelid inflammation, Other, Redness ENT: No: Ear pain, Ear discharge, Nose pain, Nose discharge, Nose congestion, Mouth pain, Mouth swelling, Throat pain, Throat swelling, Other Respiratory: Shortness of breath, SOB with excertion, Other (SOB at rest); No: Cough, Dry, Wheezing, Hemoptysis, Pleuritic Pain, Sputum, Wheezing Cardiovascular: No: Chest Pain, Palpitations, Orthopnea, Paroxysmal Noc. Dyspnea, Edema, Lt Headedness, Other Gastrointestinal: No: Nausea, Vomiting, Abdominal Pain, Diarrhea, Constipation, Melena, Hematochezia, Other Genitourinary: No Dysuria, No Frequency, No Incontinence, No Hematuria, No Retention, No Other Musculoskeletal: No: other, neck pain, shoulder pain, arm pain, back pain, hand pain, leg pain, foot pain Skin: No: Rash, Lesions, Jaundice, Bruising, Other Neurological: Weakness, Seizures; No: Numbness, Incoordination, Change in speech, Confusion, Other Allergies: Coded Allergies: NO KNOWN ALLERGIES (Unverified , 05/02/22) UNOBTAINABLE (Unverified , 12/24/24) Medications Current Medications Medications Dose Ordered Sig/Cristofer Route Start Time Stop Time Status Last Admin Dose Admin Midazolam HCl 50 ml @ 1 mls/hr Q24H IV 12/24/24 15:15 12/24/24 17:31 12 MLS/HR Nicardipine HCl 250 ml @ 50 mls/hr Q5H IV 12/24/24 16:00 12/24/24 16:17 50 MLS/HR Levetiracetam 100 ml @ 400 mls/hr BID IV 12/24/24 22:00 UNV Famotidine 20 mg DAILY IV 12/25/24 10:00 UNV Hydralazine HCl 10 mg Q6HP PRN IV 12/24/24 17:30 UNV Diagnostic Test (Pha) 1 strip Q6HR 12/24/24 18:00 UNV Insulin Human Regular Q6HR SC 12/24/24 18:00 UNV Dextrose 50 ml UD PRN IV 12/24/24 17:30 UNV Ondansetron HCl 4 mg Q4HP PRN IV 12/24/24 17:30 UNV Nitroglycerin 0.4 mg Q5MINP PRN SL 12/24/24 17:30 UNV Morphine Sulfate 2 mg Q30M PRN IV 12/24/24 17:30 UNV Sodium Chloride 1,000 ml @ 75 mls/hr [id number] IV 12/24/24 17:30 UNV Acetaminophen 650 mg Q6HP PRN MA 12/24/24 17:30 UNV Exam Vital Signs Vital Signs Date Time Temp Pulse Resp B/P (MAP) Pulse Ox O2 Delivery O2 Flow Rate FiO2 12/24/24 17:31 125/76 12/24/24 16:17 82 12/24/24 16:10 97.5 20 100 60.0 97.5 12/24/24 15:49 60 12/24/24 15:05 T-piece General Appearance: Other (Fully intubated) HEENT: Atraumatic, EOMI, Mucous membr. moist/pink Respiratory: Normal air movement, Other (On ventilator) Cardiovascular: Regular rate, Normal S1, Normal S2, No murmurs Abdominal: Normal bowel sounds, Soft, No tenderness, No hepatospenomegaly, No masses Extremities: No clubbing, No cyanosis, No edema, Normal pulses, No tenderness/swelling Skin: No rashes, No breakdown, No significant lesion Neuro: Other (Fully intubated) Psych/Mental Status: Other (Unobtainable) Labs/Xrays Labs Test 12/24/24 15:41 12/24/24 14:55 12/24/24 14:40 Range/Units Blood Gas Specimen Type Arterial Blood Gas Sample Site Left radial Blood Gas Patient Temperature 37.0 Arterial Blood Date Drawn [id number] Arterial Blood pH 7.353 7.350-7.450 Arterial Blood Partial Pressure CO2 41.5 35.0-48.0 mmHg Arterial Blood Partial Pressure O2 419.7 *H 83.0-108.0 mmHg Arterial Blood HCO3 22.6 21.0-28.0 mmol/L Arterial Blood Oxygen Saturation 99.7 H 94.0-98.0 % Arterial Blood Base Excess -2.9 L -2.0-3.0 mmol/L Arterial Blood Oxyhemoglobin 98.1 H 94.0-98.0 % Arterial Blood Carboxyhemoglobin 0.7 0.5-1.5 % Arterial Blood Methemoglobin 0.9 0.0-1.5 % Bolivar Test Modified Blood Gas Total Hemoglobin 16.70 13.5-17.5 g/dL Blood Gas Set Respiration Rate 18.0 Blood Gas Modality Vent - ac FiO2 % 100.0 Blood Gas Tidal Volume 450.0 Blood Gas PEEP or CPAP 5.0 Blood Gas Critical Value Read Back Yes Blood Gas Notified Whom emory Ayala Blood Gas Notified Time [id number] Blood Gas Notified By Commercial Production Editor james jernigan Urine Color Light-yellow Yellow Urine Clarity Turbid H Clear Urine pH 6.5 5.0-9.0 Urine Specific [place] 1.015 1.001-1.035 Urine Protein 3+ H Negative Urine Ketones Trace Negative Urine Blood 2+ H Negative /uL Urine Nitrite Negative Negative Urine Bilirubin Negative Negative Urine Urobilinogen Normal Negative mg/dL Urine Leukocyte Esterase Trace Negative /uL Urine RBC 7 0 - 3 /hpf Urine Microscopic WBC 37 H 0-3 /HPF Urine Squamous Epithelial Cells Few <5 /hpf Urine Bacteria Few H None Seen /hpf Urine Hyaline Casts Mod 0 - 2 /lpf Urine Mucus Few None Seen Urine Glucose 3+ H Normal mg/dL Urine Opiates Screen Neg NEGATIVE Urine Fentanyl Screen Neg NEGATIVE Urine Barbiturates Screen Neg NEGATIVE Urine Phencyclidine Screen Neg NEGATIVE Urine Amphetamines Screen Neg NEGATIVE Urine Benzodiazepines Screen Pos NEGATIVE Urine Cocaine Screen Neg NEGATIVE Urine Cannabinoids Screen Pos NEGATIVE White Blood Count 23.5 H 4.4-10.8 10^3/uL Red Blood Count 5.70 4.5-5.90 10^6/uL Hemoglobin 16.7 13.5-17.5 g/dL Hematocrit 51.9 41.0-53.0 % Mean Corpuscular Volume 91.0 80.0-100.0 fL Mean Corpuscular Hemoglobin 29.4 28.0-32.0 pg Mean Corpuscular Hemoglobin Concent 32.3 32.0-36.0 g/dL Red Cell Distribution Width 14.5 H 11.8-14.3 % Platelet Count 319 140-450 10^3/uL Mean Platelet Volume 8.0 6.9-10.8 fL Neutrophils (%) (Auto) 94.6 H 37.0-80.0 % Lymphocytes (%) (Auto) 3.7 L 10.0-50.0 % Monocytes (%) (Auto) 1.6 0.0-12.0 % Eosinophils (%) (Auto) 0.0 0.0-7.0 % Basophils (%) (Auto) 0.1 0.0-2.0 % Neutrophils # (Auto) 22.2 H 1.6-8.6 10 ^3/uL Lymphocytes # (Auto) 0.9 0.4-5.4 10 ^3/uL Monocytes # (Auto) 0.4 0-1.3 10 ^3/uL Eosinophils # (Auto) 0 0-0.8 10 ^3/uL Basophils # (Auto) 0 0-0.2 10 ^3/uL Nucleated Red Blood Cells 0.0 % Sodium Level 140 136-145 mmol/L Potassium Level 4.0 3.5-5.1 mmol/L Chloride Level 99 98-107 mmol/L Carbon Dioxide Level 23 20-31 mmol/L Anion Gap 18 H 5-15 Blood Urea Nitrogen 18 9-23 mg/dL Creatinine 1.68 H 0.700-1.30 mg/dL Glomerular Filtration Rate Calc 46 >90 mL/min BUN/Creatinine Ratio 10.7 10.0-20.0 Serum Glucose 272 H 74-106 mg/dL Calcium Level 9.4 8.7-10.4 mg/dL Total Bilirubin 0.4 0.2-1.0 mg/dL Aspartate Amino Transferase (AST) 29 13-40 U/L Alanine Aminotransferase (ALT) 18 7-40 U/L Alkaline Phosphatase 75 46-116 U/L Total Protein 7.6 5.7-8.2 g/dL Albumin 4.9 H 3.2-4.8 g/dL Salicylates Level < 3.0 -30 mg/dL Acetaminophen Level < 2.0 L 10.0-20.0 UG/ML Plasma/Serum Blood Alcohol < 3.0 <10 mg/dL PATIENT: SYLVIA GRANADOS ACCT: [id number] UNIT: [id number] : 1965 LOC: ER ROOM / BED: / AGE / SEX: 59 / M ADM STATUS: REG ER SERVICE [id number] ORDERING PHYSICIAN: DEANN FELTON MD PROCEDURE(s): HWOCT - HEAD WITHOUT CONTRAST REASON: aloc ORDER NUMBER(s): [id number], ACCESSION NUMBER(s): [id number] EXAM: CT HEAD WITHOUT CONTRAST HISTORY: aloc COMPARISON: None TECHNIQUE: Axial images of the head were obtained and reformatted in coronal and sagittal planes. All CT scans at this medical facility are performed using dose modulation techniques as appropriate to a performed exam including the following: Automated exposure control was utilized; adjustment of the MA and/or KV according to patient size; and use of iterative reconstruction technique. CT Dose: CTDI volume is 65.28 mGy. Dose-length product is 1416.79 mGy*cm FINDINGS: There is no evidence of acute intracranial hemorrhage, mass, mass effect midline shift. There is no hydrocephalus or extra-axial fluid collection. There are advanced chronic microvascular ischemic changes in the supratentorial white matter. There is a chronic appearing infarct in the left occipital lobe with ex vacuo dilatation of the occipital horn of the left lateral ventricle. The visualized paranasal sinuses and mastoid air cells are clear. The calvarium is intact. IMPRESSION: 1. No acute intracranial process. ORDERING PHYSICIAN: DEANN FELTON MD PROCEDURE(s): CXRP - CHEST PORTABLE REASON: aloc ORDER NUMBER(s): [id number], ACCESSION NUMBER(s): [id number] EXAM: XY CHEST PORTABLE TECHNIQUE: Single frontal chest radiograph CLINICAL HISTORY: aloc COMPARISON: None Findings/Impression: Frontal chest radiograph demonstrates no acute osseous or superficial soft tissue abnormalities. Right IJ catheter terminates in the right atrium. Endotracheal tube terminates 5.8 cm from the ezra. The enteric tube is seen descending down into the stomach with the distal tip not visualized. The trachea is midline. The cardiac silhouette and mediastinum are within normal limits. No pneumothorax, pleural effusions, or consolidations. Assessment/Plan Assessment/Plan Status epilepticus Hyperglycemia Hypertensive urgency Leukocytosis, unspecified Acute respiratory failure Acute respiratory failure with hypoxia Plan 1. Admit to intensive care unit 2. Breathing treatment 3. Pain control management 4. IV antibiotic management 5. Management of fluids and electrolytes 6. Consultation for Neurology/nephrology 7. Diagnostic test head CT 8. DVT prophylaxis-on heparin 9. Repeat labs CBC, CMP in a.m. 10. Continue with current medical management 11. Treatment plan discussed with patient and RN. Patient verbalized understanding. Plan discussed with: Patient, Other (RN) My Orders Orders - VANI PATEL DNP Procedure Category Date Status Time Levetiracetam 1000 PHA 12/24/24 Logged Mg/100ml (Levetiracet 22:00 Famotidine Injection PHA 12/25/24 Logged (Pepcid Injection) 10:00 Hemoglobin A1c LAB 12/24/24 Logged 17:18 Hydralazine Injection PHA 12/24/24 Logged (Apresoline Inject 17:30 Lactic Acid W/ Reflex LAB 12/24/24 Logged Order 17:18 *Consult CONS 12/24/24 Transmitted / 17:18 Glucose Blood PHA 12/24/24 Logged (Accu-Chek Comfort 18:00 Insulin R (Human) PHA 12/24/24 Logged (Insulin R) 18:00 Dextrose 50% Syringe PHA 12/24/24 Logged 17:30 Admit ADMIT 12/24/24 Transmitted 17:18 Allergies MALDONADO 12/24/24 In Process 17:18 Code Status CODE 12/24/24 Transmitted 17:18 Oxygen Per Hour RT 12/24/24 Transmitted 17:18 Ondansetron Hcl [facility] 12/24/24 Logged (Zofran) 17:30 Fall Risk Precautions [facility] 12/24/[address] 17:18 Complete Blood Count LAB 12/25/24 Verified 04:00 Comprehensive LAB 12/25/24 Verified Metabolic Panel 04:00 Npo (Nothing By DIET 12/24/24 Transmitted Mouth) Diet Dinner Condition: Serious MALDONADO 12/24/24 In Process 17:18 Sequential MAL[place]O 12/24/24 In Process Compression Device Nitroglycerin [facility] 12/24/24 Logged Sublingual (Ntrostat 17:30 Morphine Sulfate [facility] 12/24/24 Logged Injection 17:30 Stat Ekg For Chest [facility] 12/24/24 In Process Pain 17:18 Notify Md Of Changes [facility] 12/24/24 In Process From Base 17:18 Rotor Casting Machine Setup Operator For [facility] 12/24/24 In Process 24 Hours 17:18 Emergency Dysrhythmia [facility] 12/24/24 In Process Protocol 17:18 Rhythm Strips Once [facility] 12/24/24 In Process Every Shift 17:18 Oxygen By Nasal RT 12/24/24 Transmitted Cannula 17:18 *Dr. [facility] CONS 12/24/24 Transmitted -[place] 17:18 Sod Chl 0.45% (Sodium PHA 12/24/24 Logged Chloride 0.45% Via 17:30 Acetaminophen PHA 12/24/24 Logged Suppository (Tylenol 17:30 Problem List: (1) Status epilepticus (2) Hypertensive urgency (3) Leukocytosis, unspecified (4) Acute respiratory failure (5) Hyperglycemia (6) Acute respiratory failure with hypoxia Date of Service: Dec 24, 2024 Billing Provider: VANI PATEL DNP Common Visit Codes: [id number] INP/OBS CARE (HIGH) VANI PATEL DNP Dec 24, 2024 17:32
[2024-12-24] MEDS: InsuLIN REG 1unit/0.01ml Soln (100units/ml) SC SCH (18:00)
[2024-12-24] MEDS: SOD CHL 0.45% 1,000 ML IV SCH (18:00)
[2024-12-24] MEDS: ACCU-CHEK COMFORT CURVE STRIP VI SCH (18:12)
[2024-12-24] MEDS: cefTRIAXone 1GM/50ML D5W 50 ML IV ONE (18:37)
--- NOTE | 2024-12-24 21:41 | DVHINCON2 ---
Date of service: Dec 24, [address] Gregory Reason for Consultation Ongoing seizure History of Present Illness Mr. Quintana is a 59 years old left-handed gentleman with a history of hypertension, stroke, seizure disorder, he was admitted to the [facility] on 12/24/2024 with a chief complaint of seizure activity, at this time, he is intubated, sedated, not able to provide history, no family available for the history, the information is obtained from chart review and talking to his nurse I saw him on 10/12/2023 for acute metabolic encephalopathy/seizure According to ER note, the he girlfriend called 911 when he started to seize and he received Versed. He was glucose level was 400 on seeing According to my consultation reports dated on 10/12/2023, the patient's 1st seizure was in 2021, and since then he has intermittent spells where he had shaking all over body, stiffness in the leg, eyes rolling back, the patient did not wake up until sometimes past after the shaking was over The patient was on Keppra, which caused mood swing, and I switched him to Vimpat 100 mg b.i.d. however it is not in his external medication record In 2021, the patient had a stroke which caused her right-sided weakness and visual field cut, the patient had good recovery [phone] no answer Urinalysis, 12/24/2024: WBC: 37, urine leukocyte esterase: Trace UDS, 12/24/2024: Cannabinoids Plasma alcohol, 12/24/2024: <3 WBC/Hb/PLT/CP, 12/24/2024: 23.5/16.7/319/91 BUN/CR, 12/25/2019 5:18 a.m./1.68 GFR, 12/24/2024: 46 HGB A1c, 12/25/2019 5:5.5 Liver function tests, 12/24/2024: Unremarkable Liver function test, 08/2023: Normal Vitamin B12, 10/22/2023: 458 CT head, 10/04/2023: No acute intracranial abnormality (There is an old infarct involving the left parietal lobe with ex vacuo dilatation of the left lateral ventricle, unchanged) CT head, 12/24/2024: No acute intracranial process. (There is a chronic appearing infarct in the left occipital lobe with ex vacuo dilatation of the occipital horn of the left lateral ventricle.) MRI head, 10/13/2023: No evidence of acute intracranial abnormality Past Medical History Hypertension, stroke, seizure Past Surgical History No major surgeries Family History: Diabetes mellitus G8 MOTHER FH: schizophrenia G8 FATHER Family History Diabetes, mental illness, peripheral arterial disease Social History He smokes, he was a heavy alcohol user, he smokes marijuana, but no history of drug abuse Allergies: Coded Allergies: NO KNOWN ALLERGIES (Unverified , 05/02/22) UNOBTAINABLE (Unverified , 12/24/24) Home Meds Reported Medications Lacosamide (Vimpat) 200 Mg Tab, 200 MG PO BID, #60 TAB 10/14/23 Lacosamide (Vimpat) 200 Mg Tab, 200 MG PO BID, #60 TAB 5 Refills 10/14/23 Bupropion Hcl (Bupropion Hcl) 100 Mg Tab, 150 MG PO BID for 30 Days, MG 10/13/23 Amlodipine Besylate (Amlodipine Besylate) 5 Mg Tab, 10 MG PO DAILY for 30 Days, MG 10/12/23 Aspirin (Aspirin) 325 Mg Tab, 325 MG PO DAILY for 30 Days, MG 10/12/23 Omeprazole (Gnp Omeprazole) 20 Mg Tab, 20 MG PO DAILY, TAB 10/12/23 Current Medications Current Medications Medications (Trade) Dose Ordered Sig/Cristofer Route PRN Reason Start Time Stop Time Status Last Admin Midazolam HCl 50 ml @ 1 mls/hr Q24H IV 12/24/24 15:15 12/24/24 17:31 Nicardipine HCl 250 ml @ 50 mls/hr Q5H IV 12/24/24 16:00 12/24/24 16:17 Levetiracetam 100 ml @ 400 mls/hr BID IV 12/24/24 22:00 Famotidine (Pepcid Injection) 20 mg DAILY IV 12/25/24 10:00 Hydralazine HCl (Apresoline Injection) 10 mg Q6HP PRN IV SBP>150 12/24/24 17:30 Diagnostic Test (Pha) (Accu-Chek Comfort Curve T) 1 strip Q6HR 12/24/24 18:00 12/24/24 18:12 Insulin Human Regular (InsuLIN R) Q6HR SC 12/24/24 18:00 Dextrose 50 ml UD PRN IV Blood Sugar LESS THAN 60 12/24/24 17:30 Ondansetron HCl (Zofran) 4 mg Q4HP PRN IV NAUSEA / VOMITING 12/24/24 17:30 Nitroglycerin (Ntrostat Sublingual) 0.4 mg Q5MINP PRN SL FOR CHEST PAIN 12/24/24 17:30 Morphine Sulfate 2 mg Q30M PRN IV FOR CHEST PAIN 12/24/24 17:30 Sodium Chloride 1,000 ml @ 75 mls/hr [id number] IV 12/24/24 17:30 12/24/24 18:00 Acetaminophen (Tylenol Suppository) 650 mg Q6HP PRN RI PAIN SCALE 1-3 OR TEMP>100.4 12/24/24 17:30 Ceftriaxone Sodium 50 ml @ 100 mls/hr DAILY@09 IV 12/25/24 09:00 Review of Systems Unobtainable Vital Signs Vital Signs Date Time Temp Pulse Resp B/P (MAP) Pulse Ox O2 Delivery O2 Flow Rate FiO2 12/24/24 20:17 80 24 131/84 (100) 98 30 12/24/24 19:00 97.9 97.9 12/24/24 16:10 60.0 12/24/24 15:05 T-piece Physical Exam The patient is well-nourished and well-developed with no distress. The patient is intubated HEENT: Normocephalic, neck supple, no carotid bruits Lungs: Clear to auscultation Cardiovascular: Regular rate and region, S1, S2, no murmurs Abdomen: Soft, nontender, normal bowel sounds MENTAL STATUS: He moves his head and extremities subcutaneous, he was responds to painful stimuli CRANIAL NERVES: Pupils are equal, round and reactive.There are corneal reflexes and doll's eyes phenomenon. No signs of facial weakness. There are gagging or coughing reflexes SENSATION: No responses to pain stimuli. MOTOR: Normal tone in the upper and lower extremity. Normal muscle bulk. No fasciculations. He moves the arms and legs REFLEXES: Deep tendon reflexes are symmetrical. No pathological reflexes. CEREBELLAR/COORDINATION: Deferred GAIT/STATION: deferred. Labs/Diagnostic Data Labs Test 12/24/24 18:11 12/24/24 18:10 12/24/24 15:41 12/24/24 14:55 Range/Units POC Glucose 128 H 70-106 mg/dl Lactic Acid Level 1.1 0.4-2.0 mmol/L Blood Gas Specimen Type Arterial Blood Gas Sample Site Left radial Blood Gas Patient Temperature 37.0 Arterial Blood Date Drawn [id number] Arterial Blood pH 7.353 7.350-7.450 Arterial Blood Partial Pressure CO2 41.5 35.0-48.0 mmHg Arterial Blood Partial Pressure O2 419.7 *H 83.0-108.0 mmHg Arterial Blood HCO3 22.6 21.0-28.0 mmol/L Arterial Blood Oxygen Saturation 99.7 H 94.0-98.0 % Arterial Blood Base Excess -2.9 L -2.0-3.0 mmol/L Arterial Blood Oxyhemoglobin 98.1 H 94.0-98.0 % Arterial Blood Carboxyhemoglobin 0.7 0.5-1.5 % Arterial Blood Methemoglobin 0.9 0.0-1.5 % [place]ar Test Modified Blood Gas Total Hemoglobin 16.70 13.5-17.5 g/dL Blood Gas Set Respiration Rate 18.0 Blood Gas Modality Vent - ac FiO2 % 100.0 Blood Gas Tidal Volume 450.0 Blood Gas PEEP or CPAP 5.0 Blood Gas Critical Value Read Back Yes Blood Gas Notified Whom emory Ayala Blood Gas Notified Time [id number] Blood Gas Notified By Arbitrator james jernigan Urine Color Light-yellow Yellow Urine Clarity Turbid H Clear Urine pH 6.5 5.0-9.0 Urine Specific [place] 1.015 1.001-1.035 Urine Protein 3+ H Negative Urine Ketones Trace Negative Urine Blood 2+ H Negative /uL Urine Nitrite Negative Negative Urine Bilirubin Negative Negative Urine Urobilinogen Normal Negative mg/dL Urine Leukocyte Esterase Trace Negative /uL Urine RBC 7 0 - 3 /hpf Urine Microscopic WBC 37 H 0-3 /HPF Urine Squamous Epithelial Cells Few <5 /hpf Urine Bacteria Few H None Seen /hpf Urine Hyaline Casts Mod 0 - 2 /lpf Urine Mucus Few None Seen Urine Glucose 3+ H Normal mg/dL Urine Opiates Screen Neg NEGATIVE Urine Fentanyl Screen Neg NEGATIVE Urine Barbiturates Screen Neg NEGATIVE Urine Phencyclidine Screen Neg NEGATIVE Urine Amphetamines Screen Neg NEGATIVE Urine Benzodiazepines Screen Pos NEGATIVE Urine Cocaine Screen Neg NEGATIVE Urine Cannabinoids Screen Pos NEGATIVE Test 12/24/24 14:40 Range/Units White Blood Count 23.5 H 4.4-10.8 10^3/uL Red Blood Count 5.70 4.5-5.90 10^6/uL Hemoglobin 16.7 13.5-17.5 g/dL Hematocrit 51.9 41.0-53.0 % Mean Corpuscular Volume 91.0 80.0-100.0 fL Mean Corpuscular Hemoglobin 29.4 28.0-32.0 pg Mean Corpuscular Hemoglobin Concent 32.3 32.0-36.0 g/dL Red Cell Distribution Width 14.5 H 11.8-14.3 % Platelet Count 319 140-450 10^3/uL Mean Platelet Volume 8.0 6.9-10.8 fL Neutrophils (%) (Auto) 94.6 H 37.0-80.0 % Lymphocytes (%) (Auto) 3.7 L 10.0-50.0 % Monocytes (%) (Auto) 1.6 0.0-12.0 % Eosinophils (%) (Auto) 0.0 0.0-7.0 % Basophils (%) (Auto) 0.1 0.0-2.0 % Neutrophils # (Auto) 22.2 H 1.6-8.6 10 ^3/uL Lymphocytes # (Auto) 0.9 0.4-5.4 10 ^3/uL Monocytes # (Auto) 0.4 0-1.3 10 ^3/uL Eosinophils # (Auto) 0 0-0.8 10 ^3/uL Basophils # (Auto) 0 0-0.2 10 ^3/uL Nucleated Red Blood Cells 0.0 % Sodium Level 140 136-145 mmol/L Potassium Level 4.0 3.5-5.1 mmol/L Chloride Level 99 98-107 mmol/L Carbon Dioxide Level 23 20-31 mmol/L Anion Gap 18 H 5-15 Blood Urea Nitrogen 18 9-23 mg/dL Creatinine 1.68 H 0.700-1.30 mg/dL Glomerular Filtration Rate Calc 46 >90 mL/min BUN/Creatinine Ratio 10.7 10.0-20.0 Serum Glucose 272 H 74-106 mg/dL Hemoglobin A1c 5.5 <5.7 % A1C Calcium Level 9.4 8.7-10.4 mg/dL Total Bilirubin 0.4 0.2-1.0 mg/dL Aspartate Amino Transferase (AST) 29 13-40 U/L Alanine Aminotransferase (ALT) 18 7-40 U/L Alkaline Phosphatase 75 46-116 U/L Total Protein 7.6 5.7-8.2 g/dL Albumin 4.9 H 3.2-4.8 g/dL Salicylates Level < 3.0 -30 mg/dL Acetaminophen Level < 2.0 L 10.0-20.0 UG/ML Plasma/Serum Blood Alcohol < 3.0 <10 mg/dL Assessment Grand mal seizure, ? Triggered by hyperglycemia Seizure breakthrough, with persistent altered mental changes ? Prolonged postictal confusion ? Status epileptics ? Metabolic encephalopathy Acute respiratory failure Chronic stroke Plan/Recommendation Monitoring Supportive treatment\ EEG Follow up labs ICU care Stabilize vitals Respiratory support/vent management Discontinue Keppra Vimpat 100 mg IV twice daily Ativan for seizure breakthrough More history, including stroke, secondary stroke prevention Progress: Guarded Critical care time spent 40 minutes This medical document was created using an electronic medical record system with [employer] dictation system. Although this document has been carefully reviewed, there may still be some phonetic and typographical errors. These areas are purely typographical due to imperfections of the software programs, and do not reflect any compromise in the Plan discussed with: Other CARMINA PATE MD Dec 24, 2024 21:41
[2024-12-24] MEDS: PROPOFOL 100 ML IV SCH (22:00)
[2024-12-24] MEDS: fentaNYL Drip 2500mCg/250mlNS 250 ML IV SCH (22:08)
[2024-12-24] MEDS: levETIRAcetam 1000 mg/100ml 100 ML IV SCH (22:08)
[2024-12-24] MEDS ORDERED: LORazepam 2MG/ML-1ML VIAL IV PRN (22:15)
[2024-12-24 22:47] LABS: Triglycerides 77 mg/dL (< 150)
[2024-12-24 22:49] LABS: Cholesterol 172 mg/dL (< 200); HDL Cholesterol 58 mg/dL (40-59)
[2024-12-24 22:54] LABS: LDL Cholesterol 101 mg/dL (< 100)
--- NOTE | 2024-12-24 23:09 | DVHINCON2 ---
Date of service: Dec 24, 2024 Referring Physician Galindo Gaona NP Reason for Consultation Acute hypoxic respiratory failure requiring mechanical ventilator History of Present Illness A 59-year-old man with unknown past medical history who presents to ED today with complaint of seizure. As reported by EMS, patient's girlfriend called 911 after patient having persistent seizure. When EMS arrived on the scene, patient was seizing for about an hour and was given 5 mg of Versed. Girlfriend was a poor historian, unable to obtain medical history. Patient was seen and evaluated in the ED with persistent seizure, acute respiratory failure, getting worse that he was intubated. ED workup showed WBC 23.5, platelets 319, sodium 140, potassium 4.0, BUN 18, creatinine 1.68, GFR 46, glucose 272, albumin 4.9. Blood pressure was 184/117 trending down to 146/86, heart rate 126 trending down to 82, temperature 97.6 F, O2 saturation 99% on ventilator. Head CT showed no acute intracranial process. Patient was admitted for further care, and pulmonary consultation is requested for evaluation and management of acute hypoxic respiratory failure requiring mechanical ventilator. Review of Systems: Unable to obtain d/t intubated status. Past Medical History: Unable to obtain Past Surgical History: Unable to obtain Medications: Reviewed. Allergies: No known drug allergies. Family History: DM, schizophrenia. Social History: Nonsmoker. No alcohol use. Positive marijuana and benzodiazepine use. Family History: Diabetes mellitus G8 MOTHER FH: schizophrenia G8 FATHER Allergies: Coded Allergies: NO KNOWN ALLERGIES (Unverified , 05/02/22) UNOBTAINABLE (Unverified , 12/24/24) Home Meds Reported Medications Lacosamide (Vimpat) 200 Mg Tab, 200 MG PO BID, #60 TAB 10/14/23 Lacosamide (Vimpat) 200 Mg Tab, 200 MG PO BID, #60 TAB 5 Refills 10/14/23 Bupropion Hcl (Bupropion Hcl) 100 Mg Tab, 150 MG PO BID for 30 Days, MG 10/13/23 Amlodipine Besylate (Amlodipine Besylate) 5 Mg Tab, 10 MG PO DAILY for 30 Days, MG 10/12/23 Aspirin (Aspirin) 325 Mg Tab, 325 MG PO DAILY for 30 Days, MG 10/12/23 Omeprazole (Gnp Omeprazole) 20 Mg Tab, 20 MG PO DAILY, TAB 10/12/23 Current Medications Current Medications Medications (Trade) Dose Ordered Sig/Cristofer Route PRN Reason Start Time Stop Time Status Last Admin Midazolam HCl 50 ml @ 1 mls/hr Q24H IV 12/24/24 15:15 12/24/24 22:09 Nicardipine HCl 250 ml @ 50 mls/hr Q5H IV 12/24/24 16:00 12/24/24 16:17 Levetiracetam 100 ml @ 400 mls/hr BID IV 12/24/24 22:00 12/24/24 22:08 Famotidine (Pepcid Injection) 20 mg DAILY IV 12/25/24 10:00 Hydralazine HCl (Apresoline Injection) 10 mg Q6HP PRN IV SBP>150 12/24/24 17:30 Diagnostic Test (Pha) (Accu-Chek Comfort Curve T) 1 strip Q6HR 12/24/24 18:00 12/24/24 18:12 Insulin Human Regular (InsuLIN R) Q6HR SC 12/24/24 18:00 Dextrose 50 ml UD PRN IV Blood Sugar LESS THAN 60 12/24/24 17:30 Ondansetron HCl (Zofran) 4 mg Q4HP PRN IV NAUSEA / VOMITING 12/24/24 17:30 Nitroglycerin (Ntrostat Sublingual) 0.4 mg Q5MINP PRN SL FOR CHEST PAIN 12/24/24 17:30 Morphine Sulfate 2 mg Q30M PRN IV FOR CHEST PAIN 12/24/24 17:30 Sodium Chloride 1,000 ml @ 75 mls/hr [id number] IV 12/24/24 17:30 12/24/24 18:00 Acetaminophen (Tylenol Suppository) 650 mg Q6HP PRN OR PAIN SCALE 1-3 OR TEMP>100.4 12/24/24 17:30 Ceftriaxone Sodium 50 ml @ 100 mls/hr DAILY@09 IV 12/25/24 09:00 Propofol 100 ml @ 2.1 mls/hr Q24H IV 12/24/24 22:00 Fentanyl Citrate 250 ml @ 2.5 mls/hr Q24H IV 12/24/24 22:00 12/24/24 22:08 Patient Own Medication 100 mg BID IV 12/25/24 10:00 12/24/24 22:23 DC Lorazepam (Ativan Inj) 1 mg Q5MINP PRN IV SEIZURES 12/24/24 22:15 Lacosamide 100 mg/ Sodium Chloride 60 ml @ 120 mls/hr BID IV 12/25/24 10:00 Vital Signs Vital Signs Date Time Temp Pulse Resp B/P (MAP) Pulse Ox O2 Delivery O2 Flow Rate FiO2 12/24/24 21:41 81 24 135/90 (105) 98 30 12/24/24 19:00 97.9 97.9 12/24/24 16:10 60.0 12/24/24 15:05 T-piece Physical Exam Gen.: Patient lying in bed in medical ICU. Sedated, intubated on mechanical ventilator. Head: Normocephalic, atraumatic. Eyes: PERRLA. Ears: Normal external anatomy. Throat: Endotracheal tube and orogastric tube in place. Neck: Supple, trachea midline. Chest: Transmitted breath sounds bilaterally. Decreased air entry bilaterally. No wheezing. Bibasilar crackles. Cardiovascular: Positive S1, positive S2. Regular rate and rhythm. Abdomen: Positive bowel sounds in all 4 quadrants. Soft, nontender, nondistended. : Todd in place. Normal external genitalia. Rectal: Deferred. Skin: Warm, dry. Intact. Extremities: 2+ radial pulses bilaterally. No lower extremity edema. Neuro: Sedated. Labs/Diagnostic Data Labs Test 12/24/24 18:11 12/24/24 18:10 12/24/24 15:41 12/24/24 14:55 Range/Units POC Glucose 128 H 70-106 mg/dl Lactic Acid Level 1.1 0.4-2.0 mmol/L Blood Gas Specimen Type Arterial Blood Gas Sample Site Left radial Blood Gas Patient Temperature 37.0 Arterial Blood Date Drawn [id number] Arterial Blood pH 7.353 7.350-7.450 Arterial Blood Partial Pressure CO2 41.5 35.0-48.0 mmHg Arterial Blood Partial Pressure O2 419.7 *H 83.0-108.0 mmHg Arterial Blood HCO3 22.6 21.0-28.0 mmol/L Arterial Blood Oxygen Saturation 99.7 H 94.0-98.0 % Arterial Blood Base Excess -2.9 L -2.0-3.0 mmol/L Arterial Blood Oxyhemoglobin 98.1 H 94.0-98.0 % Arterial Blood Carboxyhemoglobin 0.7 0.5-1.5 % Arterial Blood Methemoglobin 0.9 0.0-1.5 % [place] Test Modified Blood Gas Total Hemoglobin 16.70 13.5-17.5 g/dL Blood Gas Set Respiration Rate 18.0 Blood Gas Modality Vent - ac FiO2 % 100.0 Blood Gas Tidal Volume 450.0 Blood Gas PEEP or CPAP 5.0 Blood Gas Critical Value Read Back Yes Blood Gas Notified Whom emory Ayala Blood Gas Notified Time [id number] Blood Gas Notified By [employer] Maintenance Worker james jernigan Urine Color Light-yellow Yellow Urine Clarity Turbid H Clear Urine pH 6.5 5.0-9.0 Urine Specific [place] 1.015 1.001-1.035 Urine Protein 3+ H Negative Urine Ketones Trace Negative Urine Blood 2+ H Negative /uL Urine Nitrite Negative Negative Urine Bilirubin Negative Negative Urine Urobilinogen Normal Negative mg/dL Urine Leukocyte Esterase Trace Negative /uL Urine RBC 7 0 - 3 /hpf Urine Microscopic WBC 37 H 0-3 /HPF Urine Squamous Epithelial Cells Few <5 /hpf Urine Bacteria Few H None Seen /hpf Urine Hyaline Casts Mod 0 - 2 /lpf Urine Mucus Few None Seen Urine Glucose 3+ H Normal mg/dL Urine Opiates Screen Neg NEGATIVE Urine Fentanyl Screen Neg NEGATIVE Urine Barbiturates Screen Neg NEGATIVE Urine Phencyclidine Screen Neg NEGATIVE Urine Amphetamines Screen Neg NEGATIVE Urine Benzodiazepines Screen Pos NEGATIVE Urine Cocaine Screen Neg NEGATIVE Urine Cannabinoids Screen Pos NEGATIVE Test 12/24/24 14:40 Range/Units White Blood Count 23.5 H 4.4-10.8 10^3/uL Red Blood Count 5.70 4.5-5.90 10^6/uL Hemoglobin 16.7 13.5-17.5 g/dL Hematocrit 51.9 41.0-53.0 % Mean Corpuscular Volume 91.0 80.0-100.0 fL Mean Corpuscular Hemoglobin 29.4 28.0-32.0 pg Mean Corpuscular Hemoglobin Concent 32.3 32.0-36.0 g/dL Red Cell Distribution Width 14.5 H 11.8-14.3 % Platelet Count 319 140-450 10^3/uL Mean Platelet Volume 8.0 6.9-10.8 fL Neutrophils (%) (Auto) 94.6 H 37.0-80.0 % Lymphocytes (%) (Auto) 3.7 L 10.0-50.0 % Monocytes (%) (Auto) 1.6 0.0-12.0 % Eosinophils (%) (Auto) 0.0 0.0-7.0 % Basophils (%) (Auto) 0.1 0.0-2.0 % Neutrophils # (Auto) 22.2 H 1.6-8.6 10 ^3/uL Lymphocytes # (Auto) 0.9 0.4-5.4 10 ^3/uL Monocytes # (Auto) 0.4 0-1.3 10 ^3/uL Eosinophils # (Auto) 0 0-0.8 10 ^3/uL Basophils # (Auto) 0 0-0.2 10 ^3/uL Nucleated Red Blood Cells 0.0 % Sodium Level 140 136-145 mmol/L Potassium Level 4.0 3.5-5.1 mmol/L Chloride Level 99 98-107 mmol/L Carbon Dioxide Level 23 20-31 mmol/L Anion Gap 18 H 5-15 Blood Urea Nitrogen 18 9-23 mg/dL Creatinine 1.68 H 0.700-1.30 mg/dL Glomerular Filtration Rate Calc 46 >90 mL/min BUN/Creatinine Ratio 10.7 10.0-20.0 Serum Glucose 272 H 74-106 mg/dL Hemoglobin A1c 5.5 <5.7 % A1C Calcium Level 9.4 8.7-10.4 mg/dL Total Bilirubin 0.4 0.2-1.0 mg/dL Aspartate Amino Transferase (AST) 29 13-40 U/L Alanine Aminotransferase (ALT) 18 7-40 U/L Alkaline Phosphatase 75 46-116 U/L Total Protein 7.6 5.7-8.2 g/dL Albumin 4.9 H 3.2-4.8 g/dL Triglycerides Level 77 < 150 mg/dL Cholesterol Level 172 < 200 mg/dL LDL Cholesterol 101 H < 100 mg/dL HDL Cholesterol 58 40-59 mg/dL Salicylates Level < 3.0 -30 mg/dL Acetaminophen Level < 2.0 L 10.0-20.0 UG/ML Plasma/Serum Blood Alcohol < 3.0 <10 mg/dL Assessment Impression: Acute hypoxic respiratory failure On mechanical ventilator Status epilepticus Hypertensive urgency Leukocytosis Plan: s/p intubation on mechanical ventilator. CXR image and report reviewed. Devices in place. No pneumothorax, pleural effusions, or consolidations. ABG reviewed, compensated. On AC mode; RR 18, VT 450, PEEP 5, FiO2 30% Titrate FIO2 to keep O2 saturation above 90%. VAP bundle. Daily ABG and CXR while intubated Sedate for ventilator synchrony - on Versed Nicardipine drip for BP control d/t hypertensive urgency Continue antibiotics. Antiepileptic medication Follow up Neurology recs. Pressors if necessary for hemodynamic support Titrate to keep mean arterial pressure greater than 65 mmHg. IV fluids with NS at 75 ml/hr. Monitor renal function Monitor electrolytes. Supplement as necessary. Monitor ins and outs. GI prophylaxis. DVT prophylaxis. Prognosis: Poor given patient's multiple co-morbidities. Condition: Critical Rest of plan per hospitalist and other consultants. A total of 36 minutes of critical care time was spent reviewing the patient record, examining the patient, making a diagnostic and therapeutic plan, discussing this plan with the medical personnel, following up on diagnostic studies and following the patient for clinical stability excluding any and all procedures. At least 50% of this time was spent in direct, [id number] contact. Thank you, YOSSI Gaona, for allowing me to participate in this patient's care. Further recommendations will depend on the patient's clinical course. Please do not hesitate to contact me if you have any questions or concerns. This medical document was created using an electronic medical record system with [employer] dictation system. Although these documentations are being carefully reviewed, there may still be some phonetic and typographical changes. The errors are purely typographical, due to imperfection on the software program, and do not reflect any compromise in the patient's medical care. Plan discussed with: Other (BRENNON Sinclair/YOSSI Gaona/) BOWEN PALM MD Dec 24, 2024 23:09
[2024-12-25] VITALS (87 sets, daily range): BP systolic 87–137; BP diastolic 56–92; PULSE 65–81; RESP 15–22; TEMP 97.7–100.6; O2SAT 95–100
[2024-12-25 04:53] LABS: Basophils # (auto) 0.1 10 ^3/uL (0-0.2); Basophils % (auto) 0.8 % (0.0-2.0); Eosinophils # (auto) 0.2 10 ^3/uL (0-0.8); Eosinophils % (auto) 1.3 % (0.0-7.0); Hematocrit 47.7 % (41.0-53.0); Hemoglobin 15.9 g/dL (13.5-17.5); Lymphocytes # (auto) 1.9 10 ^3/uL (0.4-5.4); Lymphocytes % (auto) 11.4 % (10.0-50.0); Mean Corpuscular Hemoglobin 29.5 pg (28.0-32.0); Mean Corpuscular Hgb Conc. 33.3 g/dL (32.0-36.0); Mean Corpuscular Volume 88.5 fL (80.0-100.0); Monocytes # (auto) 1.1 10 ^3/uL (0-1.3); Monocytes % (auto) 6.6 % (0.0-12.0); Neutrophils # (auto) 13.2 10 ^3/uL (1.6-8.6); Neutrophils % (auto) 79.9 % (37.0-80.0); Platelet Count (auto) 259 10^3/uL (140-450); Red Blood Cells 5.39 10^6/uL (4.5-5.90); Red Cell Distribution Width 14.5 % (11.8-14.3); White Blood Cell 16.5 10^3/uL (4.4-10.8)
[2024-12-25 05:11] LABS: Alanine Aminotransferase 14 U/L (7-40); Albumin 4.1 g/dL (3.2-4.8); Alkaline Phosphatase 59 U/L (46-116); Anion Gap 6 (5-15); Aspartate Aminotransferase 21 U/L (13-40); BUN/Creatinine Ratio 13.9 (10.0-20.0); Bilirubin, Total 0.5 mg/dL (0.2-1.0); Blood Urea Nitrogen 15 mg/dL (9-23); Calcium 9.5 mg/dL (8.7-10.4); Chloride 105 mmol/L (98-107); Sodium 143 mmol/L (136-145); Total Protein 6.6 g/dL (5.7-8.2)
[2024-12-25 05:13] LABS: Carbon Dioxide 32 mmol/L (20-31); Glucose 111 mg/dL (74-106); Potassium 3.2 mmol/L (3.5-5.1)
--- NOTE | 2024-12-25 06:53 | DVH ---
EXAM: XR Chest, 1 View CLINICAL INDICATION: Intubated TECHNIQUE: Frontal view of the chest. COMPARISON: XY CHEST XRAY 1 VIEW on DOS: 10/13/23, XY CHEST XRAY 1 VIEW on DOS: 08/27/23, CXRP on DO S: 05/02/22, CHEST PORTABLE on DOS: 05/02/22 FINDINGS: LUNGS AND PLEURAL SPACES: Pulmonary venous congestion. No consolidation. No pneumothorax. HEART: Unremarkable. No cardiomegaly. MEDIASTINUM: Unremarkable. Normal mediastinal contour. BONES/JOINTS: Unremarkable. No acute fracture. TUBES, LINES AND DEVICES: The endotracheal tube (ETT) is in satisfactory position. Enteric tube ti p in the stomach. Right internal jugular central venous catheter tip in the superior vena cava. OTHER FINDINGS: . .. IMPRESSION: Pulmonary venous congestion.
--- NOTE | 2024-12-25 08:50 | DVHPN2 ---
Progress Note - Dictate Date Seen: Dec 25, 2024 Medical Necessity Reason Pt with a Central, PICC or Fol: Yes The following are medically ne: Central Line, Todd Catheter Subjective Mr. Quintana is a 59 years old left-handed gentleman with a history of hypertension, stroke, seizure disorder, he was admitted to the [facility] on 12/24/2024 with a chief complaint of seizure activity I saw him on 10/12/2023 for acute metabolic encephalopathy/seizure I have seen and examined the patient, I have discussed with his nurse, the patient was intubated, nonresponsive painful stimuli, the pupils are small and minimally reactive, he was very weak gag reflexes His girlfriend was here earlier today, his nurse tried but was not able to get a useful information from her. His girlfriend was going to provide the patient was sisters contact information Urinalysis, 12/24/2024: WBC: 37, urine leukocyte esterase: Trace UDS, 12/24/2024: Cannabinoids Plasma alcohol, 12/24/2024: <3 WBC/Hb/PLT/CP, 12/24/2024: 23.5/16.7/319/91 BUN/CR, 12/24/2024: 18/1.68 GFR, 12/24/2024: 46 HGB A1c, 12/25/2019 5:5.5 Liver function tests, 12/24/2024: Unremarkable TG/HDL/LDL/HDL, 12/24/2024: 77/172/101/58 Vitamin B12, 10/22/2023: 458 CT head, 10/04/2023: No acute intracranial abnormality (There is an old infarct involving the left parietal lobe with ex vacuo dilatation of the left lateral ventricle, unchanged) CT head, 12/24/2024: No acute intracranial process. (There is a chronic appearing infarct in the left occipital lobe with ex vacuo dilatation of the occipital horn of the left lateral ventricle.) MRI head, 10/13/2023: No evidence of acute intracranial abnormality vital signs Vital Sign Date Time Temp Pulse Resp B/P (MAP) Pulse Ox O2 Delivery O2 Flow Rate FiO2 12/25/24 08:00 74 18 96 Mechanical Ventilator+ 30 30 12/25/24 07:16 114/81 (92) 12/25/24 06:45 99.5 211.1 12/24/24 16:10 60.0 Total Intake and Output 12/24/24 12/24/24 12/25/24 15:00 23:00 07:00 Intake Total 0.55 ml 2325.14 ml 843 ml Output Total 1700 ml Balance 0.55 ml 2325.14 ml -857 ml medications Current Medications Medications Dose Ordered Sig/Cristofer Route Start Time Stop Time Status Last Admin Dose Admin Midazolam HCl 50 ml @ 1 mls/hr Q24H IV 12/24/24 15:15 12/25/24 08:12 13 MLS/HR Nicardipine HCl 250 ml @ 50 mls/hr Q5H IV 12/24/24 16:00 12/24/24 23:53 50 MLS/HR Levetiracetam 100 ml @ 400 mls/hr BID IV 12/24/24 22:00 12/24/24 22:08 400 MLS/HR Famotidine 20 mg DAILY IV 12/25/24 10:00 Hydralazine HCl 10 mg Q6HP PRN IV 12/24/24 17:30 Diagnostic Test (Pha) 1 strip Q6HR 12/24/24 18:00 12/25/24 06:00 1 STRIP Insulin Human Regular Q6HR SC 12/24/24 18:00 Dextrose 50 ml UD PRN IV 12/24/24 17:30 Ondansetron HCl 4 mg Q4HP PRN IV 12/24/24 17:30 Nitroglycerin 0.4 mg Q5MINP PRN SL 12/24/24 17:30 Morphine Sulfate 2 mg Q30M PRN IV 12/24/24 17:30 Sodium Chloride 1,000 ml @ 75 mls/hr [id number] IV 12/24/24 17:30 12/24/24 18:00 75 MLS/HR Acetaminophen 650 mg Q6HP PRN [place] 12/24/24 17:30 Ceftriaxone Sodium 50 ml @ 100 mls/hr DAILY@09 IV 12/25/24 09:00 Propofol 100 ml @ 2.1 mls/hr Q24H IV 12/24/24 22:00 Fentanyl Citrate 250 ml @ 2.5 mls/hr Q24H IV 12/24/24 22:00 12/24/24 22:08 2.5 MLS/HR Lorazepam 1 mg Q5MINP PRN IV 12/24/24 22:15 Lacosamide 100 mg/ Sodium Chloride 60 ml @ 120 mls/hr BID IV 12/25/24 10:00 objective The patient is well-nourished and well-developed with no distress. The patient is intubated MENTAL STATUS: Subjective CRANIAL NERVES: Pupils are equal, round and reactive.There are corneal reflexes and doll's eyes phenomenon. No signs of facial weakness. There are gagging or coughing reflexes SENSATION: No responses to pain stimuli. MOTOR: Normal tone in the upper and lower extremity. Normal muscle bulk. No fasciculations. No extremity movement REFLEXES: Deep tendon reflexes are symmetrical. No pathological reflexes. CEREBELLAR/COORDINATION: Deferred GAIT/STATION: deferred. laboratory and microbiology Laboratory Tests 12/25/24 04:42 12/25/24 04:40 Test 12/25/24 04:40 Range/Units Serum Glucose 111 #H 74-106 mg/dL Problem List Grand mal seizure, ? Triggered by hyperglycemia Seizure breakthrough, with persistent altered mental changes ? Prolonged postictal confusion ? Status epileptics ? Metabolic encephalopathy Acute respiratory failure Urinary tract infection Chronic stroke Assessment/Plan Monitoring Supportive treatment EEG Follow up labs ICU care Stabilize vitals Respiratory support/vent management Discontinue Keppra Vimpat 100 mg IV twice daily Ativan for seizure breakthrough IV antibiotics ? Statin agent More history, including stroke, secondary stroke prevention This medical document was created using an electronic medical record system with [employer] dictation system. Although this document has been carefully reviewed, there may still be some phonetic and typographical errors. These areas are purely typographical due to imperfections of the software programs, and do not reflect any compromise in the Prognosis guarded Plan discussed with: Other Critical Care Time(min): 35 CARMINA PATE MD Dec 25, 2024 08:50
[2024-12-25] MEDS: cefTRIAXone 1GM/50ML D5W 50 ML IV SCH (09:36)
[2024-12-25] MEDS: ACETAMINOPHEN 650 MG RECT SUPP PR PRN (09:36)
[2024-12-25] MEDS: LACOSAMIDE 100 MG in SODIUM CHL 0.9% 50 ML IV SCH (10:00)
[2024-12-25] MEDS: FAMOTIDINE (10MG/ML) 2ML VL IV SCH (10:35)
--- NOTE | 2024-12-25 11:34 | ECG ---
[facility] Test Date: 2024-12-24 Test Time: 14:26:25 Pat Name: SYLVIA GRANADOS Department: ED Room: [address] [place] [address] Gender: M Sample Hand: BELLA : 1965 Requested By: DEANN FELTON Order Number: [id number] Reading MD: Dillan Nur Measurements Intervals Stacy Rate: 104 P: 83 GA: 196 QRS: 68 QRSD: 98 T: 69 QT: 346 QTc: 455 Interpretive Statements Sinus tachycardia Biatrial enlargement Electronically Signed On 12-27-2024 13:24:09 PDT by Dillan Nur Please click the below link to view image of tracing.
[2024-12-25] MEDS: POTASSIUM CHLORIDE 20 MEQ in D5W/LACTATED RINGERS 1,000 ML IV SCH (12:00)
--- NOTE | 2024-12-25 12:49 | DVHINCON2 ---
Date of service: Dec 25, 2024 Reason for Consultation Acute kidney injury History of Present Illness 59-year-old white male history of seizure noted on the last admission to have a seizure. Patient presents to the hospital due to witnessed seizure. The ER course is notable for intubation due to airway protection. Nephrology consulted due to elevated creatinine level. Patient noted to be hypotensive at bedside. Past Medical History seizure Allergies: Coded Allergies: NO KNOWN ALLERGIES (Unverified , 05/02/22) UNOBTAINABLE (Unverified , 12/24/24) Home Meds Reported Medications Lacosamide (Vimpat) 200 Mg Tab, 200 MG PO BID, #60 TAB 10/14/23 Lacosamide (Vimpat) 200 Mg Tab, 200 MG PO BID, #60 TAB 5 Refills 10/14/23 Bupropion Hcl (Bupropion Hcl) 100 Mg Tab, 150 MG PO BID for 30 Days, MG 10/13/23 Amlodipine Besylate (Amlodipine Besylate) 5 Mg Tab, 10 MG PO DAILY for 30 Days, MG 10/12/23 Aspirin (Aspirin) 325 Mg Tab, 325 MG PO DAILY for 30 Days, MG 10/12/23 Omeprazole (Gnp Omeprazole) 20 Mg Tab, 20 MG PO DAILY, TAB 10/12/23 Current Medications Current Medications Medications (Trade) Dose Ordered Sig/Cristofer Route PRN Reason Start Time Stop Time Status Last Admin Midazolam HCl 50 ml @ 1 mls/hr Q24H IV 12/24/24 15:15 12/25/24 08:12 Nicardipine HCl 250 ml @ 50 mls/hr Q5H IV 12/24/24 16:00 12/24/24 23:53 Levetiracetam 100 ml @ 400 mls/hr BID IV 12/24/24 22:00 12/25/24 08:49 DC 12/24/24 22:08 Famotidine (Pepcid Injection) 20 mg DAILY IV 12/25/24 10:00 12/25/24 10:35 Hydralazine HCl (Apresoline Injection) 10 mg Q6HP PRN IV SBP>150 12/24/24 17:30 Diagnostic Test (Pha) (Accu-Chek Comfort Curve T) 1 strip Q6HR 12/24/24 18:00 12/25/24 12:00 Insulin Human Regular (InsuLIN R) Q6HR SC 12/24/24 18:00 Dextrose 50 ml UD PRN IV Blood Sugar LESS THAN 60 12/24/24 17:30 Ondansetron HCl (Zofran) 4 mg Q4HP PRN IV NAUSEA / VOMITING 12/24/24 17:30 Nitroglycerin (Ntrostat Sublingual) 0.4 mg Q5MINP PRN SL FOR CHEST PAIN 12/24/24 17:30 Morphine Sulfate 2 mg Q30M PRN IV FOR CHEST PAIN 12/24/24 17:30 Sodium Chloride 1,000 ml @ 75 mls/hr [id number] IV 12/24/24 17:30 12/25/24 11:12 DC 12/24/24 18:00 Acetaminophen (Tylenol Suppository) 650 mg Q6HP PRN OK PAIN SCALE 1-3 OR TEMP>100.4 12/24/24 17:30 12/25/24 09:36 Ceftriaxone Sodium 50 ml @ 100 mls/hr DAILY@09 IV 12/25/24 09:00 12/25/24 09:36 Propofol 100 ml @ 2.1 mls/hr Q24H IV 12/24/24 22:00 Fentanyl Citrate 250 ml @ 2.5 mls/hr Q24H IV 12/24/24 22:00 12/24/24 22:08 Patient Own Medication 100 mg BID IV 12/25/24 10:00 12/24/24 22:23 DC Lorazepam (Ativan Inj) 1 mg Q5MINP PRN IV SEIZURES 12/24/24 22:15 Lacosamide 100 mg/ Sodium Chloride 60 ml @ 120 mls/hr BID IV 12/25/24 10:00 12/25/24 10:00 Potassium Chloride 20 meq/ Dextrose/Lactated Ringer's 1,010 ml @ 100 mls/hr Q10H6M IV 12/25/24 11:15 Family History: Diabetes mellitus G8 MOTHER FH: schizophrenia G8 FATHER Review of Systems Can not obtain due to critical illness H&P Exam Vital Signs/I&O Vital Sign Date Time Temp Pulse Resp B/P (MAP) Pulse Ox O2 Delivery O2 Flow Rate FiO2 12/25/24 12:00 72 12/25/24 12:00 91/57 12/25/24 11:40 18 98 30 12/25/24 11:00 100.2 212.4 12/25/24 10:00 Mechanical Ventilator+ 12/24/24 16:10 60.0 Intake and Output 12/24/24 12/25/24 19:00 07:00 Intake Total 1464.61 ml 1797.08 ml Output Total 1700 ml Balance 1464.61 ml 97.08 ml Intake Oral 0 ml IV Total 1464.61 ml 1797.08 ml Output Urine Total 1700 ml Physical Exam Malnourished appearing elderly white male Intubated On Versed for sedation Abdomen is soft No pitting edema Todd catheter has minimal urinary output Labs/Diagnostic Data Labs/Diagnostic Data Laboratory Tests Test 12/25/24 12:22 12/25/24 06:04 12/25/24 04:42 12/25/24 04:40 Range/Units POC Glucose 98 91 70-106 mg/dl White Blood Count 16.5 #H 4.4-10.8 10^3/uL Red Blood Count 5.39 4.5-5.90 10^6/uL Hemoglobin 15.9 13.5-17.5 g/dL Hematocrit 47.7 41.0-53.0 % Mean Corpuscular Volume 88.5 80.0-100.0 fL Mean Corpuscular Hemoglobin 29.5 28.0-32.0 pg Mean Corpuscular Hemoglobin Concent 33.3 32.0-36.0 g/dL Red Cell Distribution Width 14.5 H 11.8-14.3 % Platelet Count 259 140-450 10^3/uL Mean Platelet Volume 7.5 6.9-10.8 fL Neutrophils (%) (Auto) 79.9 37.0-80.0 % Lymphocytes (%) (Auto) 11.4 10.0-50.0 % Monocytes (%) (Auto) 6.6 0.0-12.0 % Eosinophils (%) (Auto) 1.3 0.0-7.0 % Basophils (%) (Auto) 0.8 0.0-2.0 % Neutrophils # (Auto) 13.2 H 1.6-8.6 10 ^3/uL Lymphocytes # (Auto) 1.9 0.4-5.4 10 ^3/uL Monocytes # (Auto) 1.1 0-1.3 10 ^3/uL Eosinophils # (Auto) 0.2 0-0.8 10 ^3/uL Basophils # (Auto) 0.1 0-0.2 10 ^3/uL Nucleated Red Blood Cells 0.0 % Sodium Level 143 136-145 mmol/L Potassium Level 3.2 L 3.5-5.1 mmol/L Chloride Level 105 98-107 mmol/L Carbon Dioxide Level 32 H 20-31 mmol/L Anion Gap 6 5-15 Blood Urea Nitrogen 15 9-23 mg/dL Creatinine 1.08 0.700-1.30 mg/dL Glomerular Filtration Rate Calc 79 >90 mL/min BUN/Creatinine Ratio 13.9 10.0-20.0 Serum Glucose 111 #H 74-106 mg/dL Calcium Level 9.5 8.7-10.4 mg/dL Magnesium Level 2.1 1.6-2.6 mg/dL Total Bilirubin 0.5 0.2-1.0 mg/dL Aspartate Amino Transferase (AST) 21 13-40 U/L Alanine Aminotransferase (ALT) 14 7-40 U/L Alkaline Phosphatase 59 46-116 U/L Total Protein 6.6 5.7-8.2 g/dL Albumin 4.1 3.2-4.8 g/dL Test 12/24/24 23:42 12/24/24 18:11 12/24/24 18:10 12/24/24 15:41 Range/Units POC Glucose 118 H 128 H 70-106 mg/dl Lactic Acid Level 1.1 0.4-2.0 mmol/L Blood Gas Specimen Type Arterial Blood Gas Sample Site Left radial Blood Gas Patient Temperature 37.0 Arterial Blood Date Drawn [id number] Arterial Blood pH 7.353 7.350-7.450 Arterial Blood Partial Pressure CO2 41.5 35.0-48.0 mmHg Arterial Blood Partial Pressure O2 419.7 *H 83.0-108.0 mmHg Arterial Blood HCO3 22.6 21.0-28.0 mmol/L Arterial Blood Oxygen Saturation 99.7 H 94.0-98.0 % Arterial Blood Base Excess -2.9 L -2.0-3.0 mmol/L Arterial Blood Oxyhemoglobin 98.1 H 94.0-98.0 % Arterial Blood Carboxyhemoglobin 0.7 0.5-1.5 % Arterial Blood Methemoglobin 0.9 0.0-1.5 % Bol[place]ar Test Modified Blood Gas Total Hemoglobin 16.70 13.5-17.5 g/dL Blood Gas Set Respiration Rate 18.0 Blood Gas Modality Vent - ac FiO2 % 100.0 Blood Gas Tidal Volume 450.0 Blood Gas PEEP or CPAP 5.0 Blood Gas Critical Value Read Back Yes Blood Gas Notified Whom emory Ayala Blood Gas Notified Time [id number] Blood Gas Notified By [employer] Teacher james jernigan Test 12/24/24 14:55 12/24/24 14:40 Range/Units Urine Color Light-yellow Yellow Urine Clarity Turbid H Clear Urine pH 6.5 5.0-9.0 Urine Specific [place] 1.015 1.001-1.035 Urine Protein 3+ H Negative Urine Ketones Trace Negative Urine Blood 2+ H Negative /uL Urine Nitrite Negative Negative Urine Bilirubin Negative Negative Urine Urobilinogen Normal Negative mg/dL Urine Leukocyte Esterase Trace Negative /uL Urine RBC 7 0 - 3 /hpf Urine Microscopic WBC 37 H 0-3 /HPF Urine Squamous Epithelial Cells Few <5 /hpf Urine Bacteria Few H None Seen /hpf Urine Hyaline Casts Mod 0 - 2 /lpf Urine Mucus Few None Seen Urine Glucose 3+ H Normal mg/dL Urine Opiates Screen Neg NEGATIVE Urine Fentanyl Screen Neg NEGATIVE Urine Barbiturates Screen Neg NEGATIVE Urine Phencyclidine Screen Neg NEGATIVE Urine Amphetamines Screen Neg NEGATIVE Urine Benzodiazepines Screen Pos NEGATIVE Urine Cocaine Screen Neg NEGATIVE Urine Cannabinoids Screen Pos NEGATIVE White Blood Count 23.5 H 4.4-10.8 10^3/uL Red Blood Count 5.70 4.5-5.90 10^6/uL Hemoglobin 16.7 13.5-17.5 g/dL Hematocrit 51.9 41.0-53.0 % Mean Corpuscular Volume 91.0 80.0-100.0 fL Mean Corpuscular Hemoglobin 29.4 28.0-32.0 pg Mean Corpuscular Hemoglobin Concent 32.3 32.0-36.0 g/dL Red Cell Distribution Width 14.5 H 11.8-14.3 % Platelet Count 319 140-450 10^3/uL Mean Platelet Volume 8.0 6.9-10.8 fL Neutrophils (%) (Auto) 94.6 H 37.0-80.0 % Lymphocytes (%) (Auto) 3.7 L 10.0-50.0 % Monocytes (%) (Auto) 1.6 0.0-12.0 % Eosinophils (%) (Auto) 0.0 0.0-7.0 % Basophils (%) (Auto) 0.1 0.0-2.0 % Neutrophils # (Auto) 22.2 H 1.6-8.6 10 ^3/uL Lymphocytes # (Auto) 0.9 0.4-5.4 10 ^3/uL Monocytes # (Auto) 0.4 0-1.3 10 ^3/uL Eosinophils # (Auto) 0 0-0.8 10 ^3/uL Basophils # (Auto) 0 0-0.2 10 ^3/uL Nucleated Red Blood Cells 0.0 % Sodium Level 140 136-145 mmol/L Potassium Level 4.0 3.5-5.1 mmol/L Chloride Level 99 98-107 mmol/L Carbon Dioxide Level 23 20-31 mmol/L Anion Gap 18 H 5-15 Blood Urea Nitrogen 18 9-23 mg/dL Creatinine 1.68 H 0.700-1.30 mg/dL Glomerular Filtration Rate Calc 46 >90 mL/min BUN/Creatinine Ratio 10.7 10.0-20.0 Serum Glucose 272 H 74-106 mg/dL Hemoglobin A1c 5.5 <5.7 % A1C Calcium Level 9.4 8.7-10.4 mg/dL Total Bilirubin 0.4 0.2-1.0 mg/dL Aspartate Amino Transferase (AST) 29 13-40 U/L Alanine Aminotransferase (ALT) 18 7-40 U/L Alkaline Phosphatase 75 46-116 U/L Total Protein 7.6 5.7-8.2 g/dL Albumin 4.9 H 3.2-4.8 g/dL Triglycerides Level 77 < 150 mg/dL Cholesterol Level 172 < 200 mg/dL LDL Cholesterol 101 H < 100 mg/dL HDL Cholesterol 58 40-59 mg/dL Salicylates Level < 3.0 -30 mg/dL Acetaminophen Level < 2.0 L 10.0-20.0 UG/ML Plasma/Serum Blood Alcohol < 3.0 <10 mg/dL Assessment Acute kidney injury in the setting prerenal from hypotension No previous history of kidney disease Hypokalemia Intubated due to airway protection Acute seizure Agree with IV fluid hydration Prevent hypotension maintain mean arterial pressure greater than 65 Strict Is&Os Replace electrolytes Obtain CPK and phosphorus level Seizure management per Neurology Rest of care as per primary medical team Critical care time spent 33mins Plan discussed with: Other BRENDAN HUBER MD Dec 25, 2024 12:49
[2024-12-25 13:05] LABS: Phosphorus 4.5 mg/dL (2.4-5.1)
--- NOTE | 2024-12-25 14:04 | DVHPN2 ---
Subjective Patient intubated and sedated. Reviewed: Care Plan, H&P, Labs, Medications Changes from previous H/P or p: No Changes General: Per HPI Eyes: No Pain, No Vision change, No Conjunctivae inflammation, No Eyelid inflammation, No Other, No Redness ENT: No Ear pain, No Ear discharge, No Nose pain, No Nose discharge, No Nose congestion, No Mouth pain, No Mouth swelling, No Throat pain, No Throat swelling, No Other Cardiovascular: No Chest Pain, No Palpitations, No Orthopnea, No Paroxysmal Noc. Dyspnea, No Edema, No Lt Headedness, No Other Respiratory: No Cough, No Dry; Shortness of breath, SOB with excertion; No Wheezing, No Hemoptysis, No Pleuritic Pain, No Sputum; Other (SOB at rest) Gastrointestinal: No Nausea, No Vomiting, No Abdominal Pain, No Diarrhea, No Constipation, No Melena, No Hematochezia, No Other Genitourinary: No Dysuria, No Frequency, No Incontinence, No Hematuria, No Retention, No Other Musculoskeletal: No other, No neck pain, No shoulder pain, No arm pain, No back pain, No hand pain, No leg pain, No foot pain Skin: No Rash, No Lesions, No Jaundice, No Bruising, No Other Objective Vitals Vital Signs Date Time Temp Pulse Resp B/P (MAP) Pulse Ox O2 Delivery O2 Flow Rate FiO2 12/25/24 13:17 69 18 92/66 (75) 99 30 12/25/24 13:15 100.2 212.4 12/25/24 12:00 Mechanical Ventilator+ 12/24/24 16:10 60.0 Intake/Output Intake and Output 12/25/24 07:00 Intake Total 3261.69 ml Output Total 1700 ml Balance 1561.69 ml Intake Oral 0 ml IV Total 3261.69 ml Output Urine Total 1700 ml General Appearance: Alert, Oriented X3, Cooperative, mild distress HEENT: Atraumatic, PERRLA Lungs: Clear to auscultation, Normal air movement Cardiovascular: Normal S1, Normal S2 Abdomen: Normal bowel sounds Skin: Dry, Intact Medications Current Medications Medications Dose Ordered Sig/Cristofer Route Start Time Stop Time Status Last Admin Dose Admin Midazolam HCl 50 ml @ 1 mls/hr Q24H IV 12/24/24 15:15 12/25/24 08:12 13 MLS/HR Nicardipine HCl 250 ml @ 50 mls/hr Q5H IV 12/24/24 16:00 12/24/24 23:53 50 MLS/HR Famotidine 20 mg DAILY IV 12/25/24 10:00 12/25/24 10:35 20 MG Hydralazine HCl 10 mg Q6HP PRN IV 12/24/24 17:30 Diagnostic Test (Pha) 1 strip Q6HR 12/24/24 18:00 12/25/24 12:00 1 STRIP Insulin Human Regular Q6HR SC 12/24/24 18:00 Dextrose 50 ml UD PRN IV 12/24/24 17:30 Ondansetron HCl 4 mg Q4HP PRN IV 12/24/24 17:30 Nitroglycerin 0.4 mg Q5MINP PRN SL 12/24/24 17:30 Morphine Sulfate 2 mg Q30M PRN IV 12/24/24 17:30 Acetaminophen 650 mg Q6HP PRN [place] 12/24/24 17:30 12/25/24 09:36 650 MG Ceftriaxone Sodium 50 ml @ 100 mls/hr DAILY@09 IV 12/25/24 09:00 12/25/24 09:36 100 MLS/HR Propofol 100 ml @ 2.1 mls/hr Q24H IV 12/24/24 22:00 Fentanyl Citrate 250 ml @ 2.5 mls/hr Q24H IV 12/24/24 22:00 12/24/24 22:08 2.5 MLS/HR Lorazepam 1 mg Q5MINP PRN IV 12/24/24 22:15 Lacosamide 100 mg/ Sodium Chloride 60 ml @ 120 mls/hr BID IV 12/25/24 10:00 12/25/24 10:00 120 MLS/HR Potassium Chloride 20 meq/ Dextrose/Lactated Ringer's 1,010 ml @ 100 mls/hr Q10H6M IV 12/25/24 11:15 12/25/24 12:00 100 MLS/HR Laboratory Results Laboratory Tests 12/25/24 04:40 12/25/24 04:42 Chemistry Test 12/24/24 14:40 12/25/24 04:40 Albumin 4.9 g/dL (3.2-4.8) H 4.1 g/dL (3.2-4.8) Calcium Level 9.4 mg/dL (8.7-10.4) 9.5 mg/dL (8.7-10.4) Total Protein 7.6 g/dL (5.7-8.2) 6.6 g/dL (5.7-8.2) Magnesium Level 2.1 mg/dL (1.6-2.6) Phosphorus Level 4.5 mg/dL (2.4-5.1) Lipid panel Test 12/24/24 14:40 Cholesterol Level 172 mg/dL (< 200) HDL Cholesterol 58 mg/dL (40-59) Triglycerides Level 77 mg/dL (< 150) LFT Test 12/24/24 14:40 12/25/24 04:40 Alanine Aminotransferase (ALT) 18 U/L (7-40) 14 U/L (7-40) Alkaline Phosphatase 75 U/L (46-116) 59 U/L (46-116) Aspartate Amino Transferase (AST) 29 U/L (13-40) 21 U/L (13-40) Total Bilirubin 0.4 mg/dL (0.2-1.0) 0.5 mg/dL (0.2-1.0) HgA1c, TSH Test 12/24/24 14:40 Hemoglobin A1c 5.5 % A1C (<5.7) Urinalysis Test 12/24/24 14:55 Urine Color Light-yellow (Yellow) Urine Clarity Turbid (Clear) H Urine pH 6.5 (5.0-9.0) Urine Specific [place] 1.015 (1.001-1.035) Urine Protein 3+ (Negative) H Urine Ketones Trace (Negative) Urine Blood 2+ /uL (Negative) H Urine Nitrite Negative (Negative) Urine Bilirubin Negative (Negative) Urine Urobilinogen Normal mg/dL (Negative) Urine Leukocyte Esterase Trace /uL (Negative) Urine RBC 7 /hpf (0 - 3) Urine Microscopic WBC 37 /HPF (0-3) H Urine Squamous Epithelial Cells Few /hpf (<5) Urine Bacteria Few /hpf (None Seen) H Urine Hyaline Casts Mod /lpf (0 - 2) Urine Mucus Few (None Seen) Urine Glucose 3+ mg/dL (Normal) H Blood Gas Results Test 12/24/24 15:41 Arterial Blood pH 7.353 (7.350-7.450) FiO2 % 100.0 Microbiology Microbiology Date/Time Source Procedure Growth Status 12/24/24 14:54 Sputum Gram Stain - Final Resulted 12/24/24 14:54 Sputum Respiratory Culture - Preliminary Resulted Labs and/or images reviewed: Labs reviewed by me, Image(s) reviewed by me Assessment/Plan Assessment/Plan Impression: -breakthrough seizures -metabolic encephalopathy -history of seizure disorder -sirs -pulmonary vascular congestion -cannabinoid abuse -medication noncompliance. Patient currently off all antiseizure medications -respiratory failure with mechanical ventilation Plan: -neurology consultation: Recommendations reviewed -continue Vimpat IV -continue current sedation -NG tube to LIS -continue current ventilator settings -PUD, DVT prophylaxis -repeat labs, chest x-ray, ABG in a.m. Critical care time spent with patient discussing and formulating plan of care: 40 minutes. This does not include time spent performing procedures. This medical document was created using an electronic medical record system with [employer] dictation system. Although this document has been carefully reviewed, there may still be some phonetic and typographical errors. These areas are purely typographical due to imperfections of the software programs, and do not reflect any compromise in the patient's medical care. Plan discussed with: Patient, Other (RN) My Orders Orders - GRISEL ALONSO NP Procedure Category Date Status Time D5w/Lactated PHA 12/25/24 In Process Ringer... W/Potassium 11:15 Basic Metabolic Panel LAB 12/26/24 Verified 04:00 Chest Portable XY 12/26/24 Logged 04:00 Abg W/ Co-Ox RT 12/26/24 Logged 04:00 Complete Blood Count LAB 12/26/24 Verified 04:00 Date of Service: Dec 25, 2024 Billing Provider: GRISEL ALONSO NP Common Visit Codes: [id number] CARE 30-74 MIN GRISEL ALONSO NP Dec 25, 2024 14:04
[2024-12-25] MEDS: METOCLOPRAMIDE HCL 5MG/ml INJ 2ml VIAL IV SCH (21:52)
--- NOTE | 2024-12-25 23:24 | DVHPN2 ---
Progress Note - Dictate Date Seen: Dec 25, 2024 Medical Necessity Reason Pt with a Central, PICC or Fol: Yes The following are medically ne: Central Line, Suarez Catheter Reason for suarez catheter: Strict I&O Subjective Patient seen and examined at bedside. Sedated, intubated on mechanical ventilator. Overnight events reviewed. vital signs Vital Sign Date Time Temp Pulse Resp B/P (MAP) Pulse Ox O2 Delivery O2 Flow Rate FiO2 12/25/24 23:00 119/78 12/25/24 22:54 100.6 12/25/24 22:45 75 18 99 12/25/24 22:05 30 12/25/24 19:30 Mechanical Ventilator+ 0 Total Intake and Output 12/24/24 12/24/24 12/25/24 15:00 23:00 07:00 Intake Total 0.55 ml 2325.14 ml 936 ml Output Total 1700 ml Balance 0.55 ml 2325.14 ml -764 ml medications Current Medications Medications Dose Ordered Sig/Cristofer Route Start Time Stop Time Status Last Admin Dose Admin Midazolam HCl 50 ml @ 1 mls/hr Q24H IV 12/24/24 15:15 12/25/24 14:58 6 MLS/HR Nicardipine HCl 250 ml @ 50 mls/hr Q5H IV 12/24/24 16:00 12/24/24 23:53 50 MLS/HR Famotidine 20 mg DAILY IV 12/25/24 10:00 12/25/24 10:35 20 MG Hydralazine HCl 10 mg Q6HP PRN IV 12/24/24 17:30 Diagnostic Test (Pha) 1 strip Q6HR 12/24/24 18:00 12/25/24 17:54 1 STRIP Insulin Human Regular Q6HR SC 12/24/24 18:00 Dextrose 50 ml UD PRN IV 12/24/24 17:30 Ondansetron HCl 4 mg Q4HP PRN IV 12/24/24 17:30 Nitroglycerin 0.4 mg Q5MINP PRN SL 12/24/24 17:30 Morphine Sulfate 2 mg Q30M PRN IV 12/24/24 17:30 Acetaminophen 650 mg Q6HP PRN [place] 12/24/24 17:30 12/25/24 21:49 650 MG Ceftriaxone Sodium 50 ml @ 100 mls/hr DAILY@09 IV 12/25/24 09:00 12/25/24 09:36 100 MLS/HR Propofol 100 ml @ 2.1 mls/hr Q24H IV 12/24/24 22:00 Fentanyl Citrate 250 ml @ 2.5 mls/hr Q24H IV 12/24/24 22:00 12/24/24 22:08 2.5 MLS/HR Lorazepam 1 mg Q5MINP PRN IV 12/24/24 22:15 Lacosamide 100 mg/ Sodium Chloride 60 ml @ 120 mls/hr BID IV 12/25/24 10:00 12/25/24 22:28 120 MLS/HR Potassium Chloride 20 meq/ Dextrose/Lactated Ringer's 1,010 ml @ 100 mls/hr Q10H6M IV 12/25/24 11:15 12/25/24 21:50 100 MLS/HR Metoclopramide HCl 10 mg Q8HR IV 12/25/24 22:00 12/26/24 14:01 12/25/24 21:52 10 MG objective Gen.: Patient lying in bed in medical ICU. Sedated, intubated on mechanical ventilator. Head: Normocephalic, atraumatic. Eyes: PERRLA. Ears: Normal external anatomy. Throat: Endotracheal tube and orogastric tube in place. Neck: Supple, trachea midline. Chest: Transmitted breath sounds bilaterally. Decreased air entry bilaterally. No wheezing. Bibasilar crackles. Cardiovascular: Positive S1, positive S2. Regular rate and rhythm. Abdomen: Positive bowel sounds in all 4 quadrants. Soft, nontender, nondistended. : Suarez in place. Normal external genitalia. Rectal: Deferred. Skin: Warm, dry. Intact. Extremities: 2+ radial pulses bilaterally. No lower extremity edema. Neuro: Sedated. laboratory and microbiology Laboratory Tests 12/25/24 04:42 12/25/24 04:40 Test 12/25/24 04:40 Range/Units Serum Glucose 111 #H 74-106 mg/dL Assessment/Plan Impression: Acute hypoxic respiratory failure On mechanical ventilator Status epilepticus Hypertensive urgency Leukocytosis Events: Remains on vent support On AC mode; RR 18, VT 450, PEEP 5, FiO2 30% Sedated on Versed, Fentanyl ABG reviewed, compensated. CXR reviewed, demonstrates pulmonary venous congestion. Devices in place. D5-LR + 20 mEq KCl at 100 ml/hr. Awaiting for mentation to improve Poor UOP Monitor renal function Monitor electrolytes. Supplement as necessary. Monitor ins and outs Labs and imaging reviewed. Rest of plan as noted below. Plan: s/p intubation on mechanical ventilator. On AC mode; RR 18, VT 450, PEEP 5, FiO2 30% Titrate FIO2 to keep O2 saturation above 90%. VAP bundle. Daily ABG and CXR while intubated Sedate for ventilator synchrony Nicardipine drip for BP control d/t hypertensive urgency Continue antibiotics. Antiepileptic medication Follow up Neurology recs. Pressors if necessary for hemodynamic support Titrate to keep mean arterial pressure greater than 65 mmHg. IV fluids Monitor renal function Monitor electrolytes. Supplement as necessary. Monitor ins and outs. GI prophylaxis. DVT prophylaxis. Prognosis: Poor given patient's multiple co-morbidities. Condition: Critical Rest of plan per hospitalist and other consultants. A total of 35 minutes of critical care time was spent reviewing the patient record, examining the patient, making a diagnostic and therapeutic plan, discussing this plan with the medical personnel, following up on diagnostic studies and following the patient for clinical stability excluding any and all procedures. At least 50% of this time was spent in direct, [id number] contact. Thank you, YOSSI Gaona, for allowing me to participate in this patient's care. Further recommendations will depend on the patient's clinical course. Please do not hesitate to contact me if you have any questions or concerns. This medical document was created using an electronic medical record system with [employer] dictation system. Although these documentations are being carefully reviewed, there may still be some phonetic and typographical changes. The errors are purely typographical, due to imperfection on the software program, and do not reflect any compromise in the patient's medical care. Plan discussed with: Other (BRENNON Tatum) Critical Care Time(min): 35 BOWEN PALM MD Dec 25, 2024 23:24
[2024-12-26] VITALS (79 sets, daily range): BP systolic 91–190; BP diastolic 57–109; PULSE 63–149; RESP 10–28; TEMP 97.2–101.1; O2SAT 91–100
--- NOTE | 2024-12-26 05:17 | DVH ---
EXAM: XR Chest, 1 View CLINICAL INDICATION: ETT placement TECHNIQUE: Frontal view of the chest. COMPARISON: XY CHEST PORTABLE on DOS: 12/25/24, XY CHEST XRAY 1 VIEW on DOS: 10/13/23, XY CHEST XRAY 1 VIEW on DOS: 08/27/23, CXRP on DOS: 05/02/22, CHEST PORTABLE on DOS: 05/02/22 FINDINGS: LUNGS AND PLEURAL SPACES: Pulmonary venous congestion. No consolidation. No pneumothorax. HEART: Unremarkable. No cardiomegaly. MEDIASTINUM: Unremarkable. Normal mediastinal contour. BONES/JOINTS: Unremarkable. No acute fracture. TUBES, LINES AND DEVICES: Stable tubes and lines. OTHER FINDINGS: . . IMPRESSION: Pulmonary venous congestion.
[2024-12-26 06:21] LABS: Basophils # (auto) 0.1 10 ^3/uL (0-0.2); Basophils % (auto) 0.4 % (0.0-2.0); Eosinophils # (auto) 0.4 10 ^3/uL (0-0.8); Eosinophils % (auto) 2.3 % (0.0-7.0); Hematocrit 44.5 % (41.0-53.0); Hemoglobin 14.7 g/dL (13.5-17.5); Lymphocytes # (auto) 1.7 10 ^3/uL (0.4-5.4); Lymphocytes % (auto) 11.5 % (10.0-50.0); Mean Corpuscular Hemoglobin 30.1 pg (28.0-32.0); Mean Corpuscular Hgb Conc. 33.1 g/dL (32.0-36.0); Mean Corpuscular Volume 90.8 fL (80.0-100.0); Monocytes # (auto) 1.6 10 ^3/uL (0-1.3); Monocytes % (auto) 10.7 % (0.0-12.0); Neutrophils # (auto) 11.4 10 ^3/uL (1.6-8.6); Neutrophils % (auto) 75.1 % (37.0-80.0); Nucleated Red Blood Cells % 0.1 %; Platelet Count (auto) 227 10^3/uL (140-450); Red Cell Distribution Width 14.8 % (11.8-14.3); White Blood Cell 15.2 10^3/uL (4.4-10.8)
[2024-12-26 06:31] LABS: Anion Gap 5 (5-15); Calcium 9.1 mg/dL (8.7-10.4); Chloride 106 mmol/L (98-107); Potassium 4.1 mmol/L (3.5-5.1); Sodium 143 mmol/L (136-145)
[2024-12-26 06:37] LABS: BUN/Creatinine Ratio 13.3 (10.0-20.0); Blood Urea Nitrogen 22 mg/dL (9-23)
[2024-12-26 06:40] LABS: Carbon Dioxide 32 mmol/L (20-31); Glucose 107 mg/dL (74-106)
[2024-12-26 07:58] LABS: Base Excess 1.3 mmol/L (-2.0-3.0)
--- NOTE | 2024-12-26 08:47 | DVHPN2 ---
Progress Note - Dictate Date Seen: Dec 26, 2024 Medical Necessity Reason Pt with a Central, PICC or Fol: Yes The following are medically ne: Central Line, Todd Catheter Subjective Mr. Quintana is a 59 years old left-handed gentleman with a history of hypertension, stroke, seizure disorder, he was admitted to the [facility] on 12/24/2024 with a chief complaint of seizure activity I saw him on 10/12/2023 for acute metabolic encephalopathy/seizure I have seen and examined the patient, I have discussed with his nurse, the patient is intubated, nonresponsive painful stimuli, the pupils are small and minimally reactive, he has weak gag reflexes Blood culture, 12/24/2024: Urinalysis, 12/24/2024: WBC: 37, urine leukocyte esterase: Trace UDS, 12/24/2024: Cannabinoids Plasma alcohol, 12/24/2024: <3 WBC/Hb/PLT/CP, 12/24/2024: 23.5/16.7/319/91 BUN/CR, 12/24/2024: 18/1.68 GFR, 12/24/2024: 46 HGB A1c, 12/25/2019 5:5.5 Liver function tests, 12/24/2024: Unremarkable TG/HDL/LDL/HDL, 12/24/2024: 77/172/101/58 Vitamin B12, 10/22/2023: 458 CT head, 10/04/2023: No acute intracranial abnormality (There is an old infarct involving the left parietal lobe with ex vacuo dilatation of the left lateral ventricle, unchanged) CT head, 12/24/2024: No acute intracranial process. (There is a chronic appearing infarct in the left occipital lobe with ex vacuo dilatation of the occipital horn of the left lateral ventricle.) MRI head, 10/13/2023: No evidence of acute intracranial abnormality vital signs Vital Sign Date Time Temp Pulse Resp B/P (MAP) Pulse Ox O2 Delivery O2 Flow Rate FiO2 12/26/24 08:24 74 19 123/85 (98) 100 30 12/26/24 06:45 99.7 99.7 12/25/24 19:30 Mechanical Ventilator+ 0 Total Intake and Output 12/25/24 12/25/24 12/26/24 15:00 23:00 07:00 Intake Total 826 ml 833 ml 663 ml Output Total 650 ml 300 ml Balance 826 ml 183 ml 363 ml medications Current Medications Medications Dose Ordered Sig/Cristofer Route Start Time Stop Time Status Last Admin Dose Admin Midazolam HCl 50 ml @ 1 mls/hr Q24H IV 12/24/24 15:15 12/25/24 14:58 6 MLS/HR Nicardipine HCl 250 ml @ 50 mls/hr Q5H IV 12/24/24 16:00 12/24/24 23:53 50 MLS/HR Famotidine 20 mg DAILY IV 12/25/24 10:00 12/25/24 10:35 20 MG Hydralazine HCl 10 mg Q6HP PRN IV 12/24/24 17:30 Diagnostic Test (Pha) 1 strip Q6HR 12/24/24 18:00 12/26/24 06:00 1 STRIP Insulin Human Regular Q6HR SC 12/24/24 18:00 Dextrose 50 ml UD PRN IV 12/24/24 17:30 Ondansetron HCl 4 mg Q4HP PRN IV 12/24/24 17:30 Nitroglycerin 0.4 mg Q5MINP PRN SL 12/24/24 17:30 Morphine Sulfate 2 mg Q30M PRN IV 12/24/24 17:30 Acetaminophen 650 mg Q6HP PRN FL 12/24/24 17:30 12/25/24 21:49 650 MG Ceftriaxone Sodium 50 ml @ 100 mls/hr DAILY@09 IV 12/25/24 09:00 12/25/24 09:36 100 MLS/HR Propofol 100 ml @ 2.1 mls/hr Q24H IV 12/24/24 22:00 Fentanyl Citrate 250 ml @ 2.5 mls/hr Q24H IV 12/24/24 22:00 12/24/24 22:08 2.5 MLS/HR Lorazepam 1 mg Q5MINP PRN IV 12/24/24 22:15 Lacosamide 100 mg/ Sodium Chloride 60 ml @ 120 mls/hr BID IV 12/25/24 10:00 12/25/24 22:28 120 MLS/HR Metoclopramide HCl 10 mg Q8HR IV 12/25/24 22:00 12/26/24 14:01 12/26/24 06:31 10 MG Doxycycline Hyclate 100 ml @ 50 mls/hr Q12H IV 12/26/24 07:45 objective The patient is well-nourished and well-developed with no distress. The patient is intubated MENTAL STATUS: Subjective CRANIAL NERVES: Pupils are equal, round and reactive.There are corneal reflexes and doll's eyes phenomenon. No signs of facial weakness. There are gagging or coughing reflexes SENSATION: No responses to pain stimuli. MOTOR: Normal tone in the upper and lower extremity. Normal muscle bulk. No fasciculations. No extremity movement REFLEXES: Deep tendon reflexes are symmetrical. No pathological reflexes. CEREBELLAR/COORDINATION: Deferred GAIT/STATION: deferred. laboratory and microbiology Laboratory Tests 12/26/24 05:50 Test 12/26/24 05:50 Range/Units Serum Glucose 107 H 74-106 mg/dL Problem List Grand mal seizure, ? Triggered by hyperglycemia Seizure breakthrough, with persistent altered mental changes ? Prolonged postictal confusion ? Status epileptics ? Metabolic encephalopathy Acute respiratory failure Urinary tract infection Chronic stroke Assessment/Plan Monitoring Supportive treatment EEG Follow up labs ICU care Stabilize vitals Respiratory support/vent management Discontinue Keppra Vimpat 100 mg IV twice daily Ativan for seizure breakthrough IV antibiotics ? Statin agent More history, including stroke, secondary stroke prevention This medical document was created using an electronic medical record system with [employer] dictation system. Although this document has been carefully reviewed, there may still be some phonetic and typographical errors. These areas are purely typographical due to imperfections of the software programs, and do not reflect any compromise in the Prognosis guarded Plan discussed with: Other Critical Care Time(min): 30 CARMINA PATE MD Dec 26, 2024 08:47
--- NOTE | 2024-12-26 09:12 | DVHPN2 ---
Subjective Patient intubated and sedated. Reviewed: Care Plan, H&P, Labs, Medications Changes from previous H/P or p: No Changes General: Per HPI Eyes: No Pain, No Vision change, No Conjunctivae inflammation, No Eyelid inflammation, No Other, No Redness ENT: No Ear pain, No Ear discharge, No Nose pain, No Nose discharge, No Nose congestion, No Mouth pain, No Mouth swelling, No Throat pain, No Throat swelling, No Other Cardiovascular: No Chest Pain, No Palpitations, No Orthopnea, No Paroxysmal Noc. Dyspnea, No Edema, No Lt Headedness, No Other Respiratory: No Cough, No Dry; Shortness of breath, SOB with excertion; No Wheezing, No Hemoptysis, No Pleuritic Pain, No Sputum; Other (SOB at rest) Gastrointestinal: No Nausea, No Vomiting, No Abdominal Pain, No Diarrhea, No Constipation, No Melena, No Hematochezia, No Other Genitourinary: No Dysuria, No Frequency, No Incontinence, No Hematuria, No Retention, No Other Musculoskeletal: No other, No neck pain, No shoulder pain, No arm pain, No back pain, No hand pain, No leg pain, No foot pain Skin: No Rash, No Lesions, No Jaundice, No Bruising, No Other Objective Vitals Vital Signs Date Time Temp Pulse Resp B/P (MAP) Pulse Ox O2 Delivery O2 Flow Rate FiO2 12/26/24 08:24 74 19 123/85 (98) 100 30 12/26/24 06:45 99.7 99.7 12/25/24 19:30 Mechanical Ventilator+ 0 Intake/Output Intake and Output 12/26/24 07:00 Intake Total 2322 ml Output Total 950 ml Balance 1372 ml IV Total 2322 ml Output Urine Total 550 ml Gastric Drainage Total 400 ml General Appearance: mild distress, Other (Chemically sedated) HEENT: Atraumatic, PERRLA Lungs: Clear to auscultation, Normal air movement Cardiovascular: Normal S1, Normal S2 Abdomen: Normal bowel sounds Skin: Dry, Intact Medications Current Medications Medications Dose Ordered Sig/Cristofer Route Start Time Stop Time Status Last Admin Dose Admin Midazolam HCl 50 ml @ 1 mls/hr Q24H IV 12/24/24 15:15 12/25/24 14:58 6 MLS/HR Nicardipine HCl 250 ml @ 50 mls/hr Q5H IV 12/24/24 16:00 12/24/24 23:53 50 MLS/HR Famotidine 20 mg DAILY IV 12/25/24 10:00 12/25/24 10:35 20 MG Hydralazine HCl 10 mg Q6HP PRN IV 12/24/24 17:30 Diagnostic Test (Pha) 1 strip Q6HR 12/24/24 18:00 12/26/24 06:00 1 STRIP Insulin Human Regular Q6HR SC 12/24/24 18:00 Dextrose 50 ml UD PRN IV 12/24/24 17:30 Ondansetron HCl 4 mg Q4HP PRN IV 12/24/24 17:30 Nitroglycerin 0.4 mg Q5MINP PRN SL 12/24/24 17:30 Morphine Sulfate 2 mg Q30M PRN IV 12/24/24 17:30 Acetaminophen 650 mg Q6HP PRN GA 12/24/24 17:30 12/25/24 21:49 650 MG Ceftriaxone Sodium 50 ml @ 100 mls/hr DAILY@09 IV 12/25/24 09:00 12/25/24 09:36 100 MLS/HR Propofol 100 ml @ 2.1 mls/hr Q24H IV 12/24/24 22:00 Fentanyl Citrate 250 ml @ 2.5 mls/hr Q24H IV 12/24/24 22:00 12/24/24 22:08 2.5 MLS/HR Lorazepam 1 mg Q5MINP PRN IV 12/24/24 22:15 Lacosamide 100 mg/ Sodium Chloride 60 ml @ 120 mls/hr BID IV 12/25/24 10:00 12/25/24 22:28 120 MLS/HR Metoclopramide HCl 10 mg Q8HR IV 12/25/24 22:00 12/26/24 14:01 12/26/24 06:31 10 MG Doxycycline Hyclate 100 ml @ 50 mls/hr Q12H IV 12/26/24 07:45 Laboratory Results Laboratory Tests 12/26/24 05:50 Chemistry Test 12/26/24 05:50 Calcium Level 9.1 mg/dL (8.7-10.4) Urinalysis Test 12/24/24 14:55 Urine Color Light-yellow (Yellow) Urine Clarity Turbid (Clear) H Urine pH 6.5 (5.0-9.0) Urine Specific [place] [employer] 1.015 (1.001-1.035) Urine Protein 3+ (Negative) H Urine Ketones Trace (Negative) Urine Blood 2+ /uL (Negative) H Urine Nitrite Negative (Negative) Urine Bilirubin Negative (Negative) Urine Urobilinogen Normal mg/dL (Negative) Urine Leukocyte Esterase Trace /uL (Negative) Urine RBC 7 /hpf (0 - 3) Urine Microscopic WBC 37 /HPF (0-3) H Urine Squamous Epithelial Cells Few /hpf (<5) Urine Bacteria Few /hpf (None Seen) H Urine Hyaline Casts Mod /lpf (0 - 2) Urine Mucus Few (None Seen) Urine Glucose 3+ mg/dL (Normal) H Blood Gas Results Test 12/26/24 05:50 Arterial Blood pH 7.378 (7.350-7.450) FiO2 % 30.0 Microbiology Microbiology Date/Time Source Procedure Growth Status 12/24/24 21:55 Nose MRSA Screen - Final Complete 12/24/24 19:20 Blood Blood Culture - Preliminary NO GROWTH AFTER 24 HOURS OF INCUBATION. Resulted 12/24/24 14:54 Sputum Gram Stain - Final Resulted 12/24/24 14:54 Sputum Respiratory Culture - Preliminary Resulted Labs and/or images reviewed: Labs reviewed by me, Image(s) reviewed by me Assessment/Plan Assessment/Plan Impression: -breakthrough seizures -metabolic encephalopathy -history of seizure disorder -sirs -pulmonary vascular congestion -cannabinoid abuse -medication noncompliance. Patient currently off all antiseizure medications -respiratory failure with mechanical ventilation Plan: Events: Chest x-ray reviewed with some pulmonary vascular congestion. FiO2 30%. Currently heavily sedated. Orders for spontaneous breathing trial today. -IV Lasix -neurology consultation: Recommendations reviewed -continue Vimpat IV -wean current sedation -NG tube to LIS, Reglan -continue current ventilator settings -PUD, DVT prophylaxis -repeat labs, chest x-ray, ABG in a.m. Critical care time spent with patient discussing and formulating plan of care: 40 minutes. This does not include time spent performing procedures. This medical document was created using an electronic medical record system with [employer] system. Although this document has been carefully reviewed, there may still be some phonetic and typographical errors. These areas are purely typographical due to imperfections of the software programs, and do not reflect any compromise in the patient's medical care. Plan discussed with: Patient, Other (Rn) My Orders Orders - GRISEL ALONSO NP Procedure Category Date Status Time Chest Portable XY 12/26/24 Resulted 04:00 Abg W/ Co-Ox RT 12/26/24 Logged 04:00 Metoclopramide PHA 12/25/24 In Process Injection (Reglan 22:00 Ng To Lis MALDONADO 12/25/24 In Process 14:04 Basic Metabolic Panel LAB 12/27/24 Verified 04:00 Complete Blood Count LAB 12/27/24 Verified 04:00 Cpap/Sed Vacation Med ORDERS 12/26/24 Transmitted Weaning 07:32 Cpap Trial For Am ORDERS 12/26/24 Transmitted 07:32 Doxycycline PHA 12/26/24 In Process 100mg/100ml 07:45 Date of Service: Dec 26, 2024 Billing Provider: GRISEL ALONSO NP Common Visit Codes: [id number] CARE 30-74 MIN GRISEL ALONSO NP Dec 26, 2024 09:12
[2024-12-26] MEDS: FUROSEMIDE 20 MG/2 ML VIAL IV ONE (09:17)
[2024-12-26] MEDS: DOXYCYCLINE 100MG/100ML 100 ML IV SCH (09:17)
[2024-12-26] MEDS: hydrALAZINE HCL 20 MG/ML VL IV PRN (12:15)
--- NOTE | 2024-12-26 14:06 | DVHPN2 ---
Progress Note Date Seen: Dec 26, 2024 Medical Necessity Reason Pt with a Central, PICC or Fol: Yes The following are medically ne: Central Line, Suarez Catheter Reason for suarez catheter: Strict I&O Subjective Review of Systems: RESPIRATORY:Abnormal Objective vital signs Vital Sign Date Time Temp Pulse Resp B/P (MAP) Pulse Ox O2 Delivery O2 Flow Rate FiO2 12/26/24 13:15 100.8 12/26/24 12:15 190/109 12/26/24 12:00 76 12/26/24 11:50 19 100 30 12/26/24 10:00 Mechanical Ventilator+ 12/25/24 19:30 0 Total Intake and Output 12/25/24 12/25/24 12/26/24 15:00 23:00 07:00 Intake Total 826 ml 833 ml 663 ml Output Total 650 ml 300 ml Balance 826 ml 183 ml 363 ml medications Current Medications Medications Dose Ordered Sig/Cristofer Route Start Time Stop Time Status Last Admin Dose Admin Midazolam HCl 50 ml @ 1 mls/hr Q24H IV 12/24/24 15:15 12/26/24 13:32 2 MLS/HR Nicardipine HCl 250 ml @ 50 mls/hr Q5H IV 12/24/24 16:00 12/24/24 23:53 50 MLS/HR Famotidine 20 mg DAILY IV 12/25/24 10:00 12/26/24 10:23 20 MG Hydralazine HCl 10 mg Q6HP PRN IV 12/24/24 17:30 12/26/24 12:15 10 MG Diagnostic Test (Pha) 1 strip Q6HR 12/24/24 18:00 12/26/24 12:00 1 STRIP Insulin Human Regular Q6HR SC 12/24/24 18:00 12/26/24 13:20 2 UNITS Dextrose 50 ml UD PRN IV 12/24/24 17:30 Ondansetron HCl 4 mg Q4HP PRN IV 12/24/24 17:30 Nitroglycerin 0.4 mg Q5MINP PRN SL 12/24/24 17:30 Morphine Sulfate 2 mg Q30M PRN IV 12/24/24 17:30 Acetaminophen 650 mg Q6HP PRN NV 12/24/24 17:30 12/26/24 12:15 650 MG Ceftriaxone Sodium 50 ml @ 100 mls/hr DAILY@09 IV 12/25/24 09:00 12/26/24 09:17 100 MLS/HR Propofol 100 ml @ 2.1 mls/hr Q24H IV 12/24/24 22:00 Fentanyl Citrate 250 ml @ 2.5 mls/hr Q24H IV 12/24/24 22:00 12/24/24 22:08 2.5 MLS/HR Lorazepam 1 mg Q5MINP PRN IV 12/24/24 22:15 Lacosamide 100 mg/ Sodium Chloride 60 ml @ 120 mls/hr BID IV 12/25/24 10:00 12/26/24 10:00 120 MLS/HR Doxycycline Hyclate 100 ml @ 50 mls/hr Q12H IV 12/26/24 07:45 12/26/24 09:17 50 MLS/HR Dexmedetomidine HCl 400 mcg/ Dextrose 100 ml @ 3.5 mls/hr Q24H IV 12/26/24 13:30 Examination: GENERAL:Abnormal, LUNGS:Abnormal laboratory and microbiology Laboratory Tests 12/26/24 05:50 Test 12/26/24 05:50 Range/Units Serum Glucose 107 H 74-106 mg/dL Microbiology Date/Time Source Procedure Growth Status 12/24/24 21:55 Nose MRSA Screen - Final Complete 12/24/24 19:20 Blood Blood Culture - Preliminary NO GROWTH AFTER 24 HOURS OF INCUBATION. Resulted 12/24/24 14:54 Sputum Gram Stain - Final Resulted 12/24/24 14:54 Sputum Respiratory Culture - Preliminary Resulted Problem List/Assessment/Plan Problem List/Assessment/Plan Acute kidney injury in the setting prerenal from hypotension No previous history of kidney disease Hypokalemia Intubated due to airway protection Acute seizure Agree with IV fluid hydration Prevent hypotension maintain mean arterial pressure greater than 65 Strict Is&Os Replace electrolytes Seizure management per Neurology Rest of care as per primary medical team Josué is stable no further renal recs will sign off Plan discussed with: Other Dietary Evaluation Review Comments: 1. Noted plan for SBT, if passes recommend Regular diet; texture per MUSEUM SPECIALIST 2. If pt to remain intubated, start TF w/ Osmolite 1.2 @ 65 ml/hr; begin at 15 ml/hr, advance by 10 ml Q4 hrs or as tolerated to goal-rate of 65 ml/hr continuously 3. Provide free water flushes of 30 ml Q4 hrs (180 ml total); adjust RPN 4. Monitor BMP/lytes and replete per protocol TF Provision: TF at goal to provide 1560 ml total volume, 1872 kcal, 86 gm pro, 0 gm fiber, 1279 ml H20 (meets 100% est. kcal needs, 100% est. pro needs) Expected Outcomes/Goals: Adeqaute nutrition, weight maintenance. BRENDAN HUBER MD Dec 26, 2024 14:06
--- NOTE | 2024-12-26 23:21 | DVHPN2 ---
Progress Note - Dictate Date Seen: Dec 26, 2024 Medical Necessity Reason Pt with a Central, PICC or Fol: Yes The following are medically ne: Central Line, Suarez Catheter Reason for suarez catheter: Strict I&O Subjective Patient seen and examined at bedside. Sedated, intubated on mechanical ventilator. Overnight events reviewed. vital signs Vital Sign Date Time Temp Pulse Resp B/P (MAP) Pulse Ox O2 Delivery O2 Flow Rate FiO2 12/26/24 22:06 72 18 91/58 (69) 100 30 12/26/24 22:00 Mechanical Ventilator+ 12/26/24 20:18 100.0 12/25/24 19:30 0 Total Intake and Output 12/25/24 12/25/24 12/26/24 15:00 23:00 07:00 Intake Total 826 ml 833 ml 768 ml Output Total 650 ml 300 ml Balance 826 ml 183 ml 468 ml medications Current Medications Medications Dose Ordered Sig/Cristofer Route Start Time Stop Time Status Last Admin Dose Admin Midazolam HCl 50 ml @ 1 mls/hr Q24H IV 12/24/24 15:15 12/26/24 18:40 4 MLS/HR Nicardipine HCl 250 ml @ 50 mls/hr Q5H IV 12/24/24 16:00 12/24/24 23:53 50 MLS/HR Famotidine 20 mg DAILY IV 12/25/24 10:00 12/26/24 10:23 20 MG Hydralazine HCl 10 mg Q6HP PRN IV 12/24/24 17:30 12/26/24 12:15 10 MG Diagnostic Test (Pha) 1 strip Q6HR 12/24/24 18:00 12/26/24 18:26 1 STRIP Insulin Human Regular Q6HR SC 12/24/24 18:00 12/26/24 13:20 2 UNITS Dextrose 50 ml UD PRN IV 12/24/24 17:30 Ondansetron HCl 4 mg Q4HP PRN IV 12/24/24 17:30 Nitroglycerin 0.4 mg Q5MINP PRN SL 12/24/24 17:30 Morphine Sulfate 2 mg Q30M PRN IV 12/24/24 17:30 Acetaminophen 650 mg Q6HP PRN LA 12/24/24 17:30 12/26/24 18:56 650 MG Ceftriaxone Sodium 50 ml @ 100 mls/hr DAILY@09 IV 12/25/24 09:00 12/26/24 09:17 100 MLS/HR Propofol 100 ml @ 2.1 mls/hr Q24H IV 12/24/24 22:00 Fentanyl Citrate 250 ml @ 2.5 mls/hr Q24H IV 12/24/24 22:00 12/26/24 18:50 7.5 MLS/HR Lorazepam 1 mg Q5MINP PRN IV 12/24/24 22:15 Lacosamide 100 mg/ Sodium Chloride 60 ml @ 120 mls/hr BID IV 12/25/24 10:00 12/26/24 21:56 120 MLS/HR Doxycycline Hyclate 100 ml @ 50 mls/hr Q12H IV 12/26/24 07:45 12/26/24 18:40 50 MLS/HR Dexmedetomidine HCl 400 mcg/ Dextrose 100 ml @ 3.5 mls/hr Q24H IV 12/26/24 13:30 objective Gen.: Patient lying in bed in medical ICU. Sedated, intubated on mechanical ventilator. Head: Normocephalic, atraumatic. Eyes: PERRLA. Ears: Normal external anatomy. Throat: Endotracheal tube and orogastric tube in place. Neck: Supple, trachea midline. Chest: Transmitted breath sounds bilaterally. Decreased air entry bilaterally. No wheezing. Bibasilar crackles. Cardiovascular: Positive S1, positive S2. Regular rate and rhythm. Abdomen: Positive bowel sounds in all 4 quadrants. Soft, nontender, nondistended. : Suarez in place. Normal external genitalia. Rectal: Deferred. Skin: Warm, dry. Intact. Extremities: 2+ radial pulses bilaterally. No lower extremity edema. Neuro: Sedated. laboratory and microbiology Laboratory Tests 12/26/24 05:50 Test 12/26/24 05:50 Range/Units Serum Glucose 107 H 74-106 mg/dL Assessment/Plan Impression: Acute hypoxic respiratory failure On mechanical ventilator Status epilepticus Hypertensive urgency Leukocytosis Events: Remains on vent support On AC mode; RR 18, VT 450, PEEP 5, FiO2 30% Sedated on Versed, Fentanyl ABG reviewed, compensated. CXR reviewed, demonstrates pulmonary venous congestion. Devices in place. IV fluids with D5W + potassium chloride Awaiting for mentation to improve Continue antibiotics WBC trending down. Blood cultures show no growth after 48 hours Poor UOP Monitor renal function Monitor electrolytes. Supplement as necessary. Monitor ins and outs Nephrology recs appreciated. Labs and imaging reviewed. Rest of plan as noted below. Plan: s/p intubation on mechanical ventilator. On AC mode; RR 18, VT 450, PEEP 5, FiO2 30% Titrate FIO2 to keep O2 saturation above 90%. VAP bundle. Daily ABG and CXR while intubated Sedate for ventilator synchrony Nicardipine drip on hold Monitor blood pressure Continue antibiotics. Antiepileptic medication Neurology recs appreciated Pressors if necessary for hemodynamic support Titrate to keep mean arterial pressure greater than 65 mmHg. IV fluids Monitor renal function Monitor electrolytes. Supplement as necessary. Monitor ins and outs. GI prophylaxis. DVT prophylaxis. Prognosis: Poor given patient's multiple co-morbidities. Condition: Critical Rest of plan per hospitalist and other consultants. A total of 35 minutes of critical care time was spent reviewing the patient record, examining the patient, making a diagnostic and therapeutic plan, discussing this plan with the medical personnel, following up on diagnostic studies and following the patient for clinical stability excluding any and all procedures. At least 50% of this time was spent in direct, [id number] contact. Thank you, INTEGRATION SPECIALIST Candelaria, for allowing me to participate in this patient's care. Further recommendations will depend on the patient's clinical course. Please do not hesitate to contact me if you have any questions or concerns. This medical document was created using an electronic medical record system with [employer] dictation system. Although these documentations are being carefully reviewed, there may still be some phonetic and typographical changes. The errors are purely typographical, due to imperfection on the software program, and do not reflect any compromise in the patient's medical care. Dietary Evaluation Review Comments: 1. Noted plan for SBT, if passes recommend Regular diet; texture per AQUATICS INSTRUCTOR 2. If pt to remain intubated, start TF w/ Osmolite 1.2 @ 65 ml/hr; begin at 15 ml/hr, advance by 10 ml Q4 hrs or as tolerated to goal-rate of 65 ml/hr continuously 3. Provide free water flushes of 30 ml Q4 hrs (180 ml total); adjust RPN 4. Monitor BMP/lytes and replete per protocol TF Provision: TF at goal to provide 1560 ml total volume, 1872 kcal, 86 gm pro, 0 gm fiber, 1279 ml H20 (meets 100% est. kcal needs, 100% est. pro needs) Expected Outcomes/Goals: Adeqaute nutrition, weight maintenance. Plan discussed with: Other (BRENNON Montiel) Critical Care Time(min): 35 BOWEN PALM MD Dec 26, 2024 23:21
[2024-12-27] VITALS (69 sets, daily range): BP systolic 76–164; BP diastolic 42–113; PULSE 59–118; RESP 7–19; TEMP 98.1–99.3; O2SAT 89–100
--- NOTE | 2024-12-27 05:33 | DVH ---
EXAM: XR Chest, 1 View CLINICAL INDICATION: INTUBATED TECHNIQUE: Frontal view of the chest. COMPARISON: XY CHEST PORTABLE on DOS: 12/26/24, XY CHEST PORTABLE on DOS: 12/25/24, XY CHEST XRAY 1 V IEW on DOS: 10/13/23, XY CHEST XRAY 1 VIEW on DOS: 08/27/23, CXRP on DOS: 05/02/22 FINDINGS: LUNGS AND PLEURAL SPACES: Pulmonary venous congestion. No consolidation. No pneumothorax. HEART: Unremarkable. No cardiomegaly. MEDIASTINUM: Unremarkable. Normal mediastinal contour. BONES/JOINTS: Unremarkable. No acute fracture. TUBES, LINES AND DEVICES: Stable tubes and lines. OTHER FINDINGS: . . IMPRESSION: Pulmonary venous congestion.
[2024-12-27 06:03] LABS: Base Excess 1.6 mmol/L (-2.0-3.0)
[2024-12-27 06:29] LABS: Basophils # (auto) 0 10 ^3/uL (0-0.2); Basophils % (auto) 0.5 % (0.0-2.0); Eosinophils # (auto) 0.3 10 ^3/uL (0-0.8); Eosinophils % (auto) 2.4 % (0.0-7.0); Hematocrit 44.4 % (41.0-53.0); Hemoglobin 14.6 g/dL (13.5-17.5); Lymphocytes # (auto) 1.5 10 ^3/uL (0.4-5.4); Lymphocytes % (auto) 13.4 % (10.0-50.0); Mean Corpuscular Hemoglobin 29.7 pg (28.0-32.0); Mean Corpuscular Hgb Conc. 32.8 g/dL (32.0-36.0); Mean Corpuscular Volume 90.7 fL (80.0-100.0); Neutrophils # (auto) 8.1 10 ^3/uL (1.6-8.6); Neutrophils % (auto) 74.7 % (37.0-80.0); Nucleated Red Blood Cells % 0.1 %; Platelet Count (auto) 214 10^3/uL (140-450); Red Cell Distribution Width 15.1 % (11.8-14.3); White Blood Cell 10.9 10^3/uL (4.4-10.8)
[2024-12-27 06:33] LABS: Anion Gap 7 (5-15); Carbon Dioxide 29 mmol/L (20-31); Sodium 145 mmol/L (136-145)
[2024-12-27 06:34] LABS: Chloride 109 mmol/L (98-107); Potassium 3.5 mmol/L (3.5-5.1)
[2024-12-27 06:35] LABS: Calcium 9.6 mg/dL (8.7-10.4)
[2024-12-27 06:39] LABS: BUN/Creatinine Ratio 19.1 (10.0-20.0); Blood Urea Nitrogen 21 mg/dL (9-23); Glucose 76 mg/dL (74-106)
--- NOTE | 2024-12-27 07:17 | DVHPN2 ---
Subjective Patient intubated and sedated. Reviewed: Care Plan, H&P, Labs, Medications Changes from previous H/P or p: No Changes General: Per HPI Eyes: No Pain, No Vision change, No Conjunctivae inflammation, No Eyelid inflammation, No Other, No Redness ENT: No Ear pain, No Ear discharge, No Nose pain, No Nose discharge, No Nose congestion, No Mouth pain, No Mouth swelling, No Throat pain, No Throat swelling, No Other Cardiovascular: No Chest Pain, No Palpitations, No Orthopnea, No Paroxysmal Noc. Dyspnea, No Edema, No Lt Headedness, No Other Respiratory: No Cough, No Dry; Shortness of breath, SOB with excertion; No Wheezing, No Hemoptysis, No Pleuritic Pain, No Sputum; Other (SOB at rest) Gastrointestinal: No Nausea, No Vomiting, No Abdominal Pain, No Diarrhea, No Constipation, No Melena, No Hematochezia, No Other Genitourinary: No Dysuria, No Frequency, No Incontinence, No Hematuria, No Retention, No Other Musculoskeletal: No other, No neck pain, No shoulder pain, No arm pain, No back pain, No hand pain, No leg pain, No foot pain Skin: No Rash, No Lesions, No Jaundice, No Bruising, No Other Objective Vitals Vital Signs Date Time Temp Pulse Resp B/P (MAP) Pulse Ox O2 Delivery O2 Flow Rate FiO2 12/27/24 06:00 18 100 Mechanical Ventilator+ 30 30 12/27/24 06:00 99.0 69 103/66 (78) 210.2 12/25/24 19:30 0 Intake/Output Intake and Output 12/27/24 06:59 Intake Total 1009.5 ml Output Total 1800 ml Balance -790.5 ml Intake Oral 0 ml IV Total 1009.5 ml Output Urine Total 1800 ml Gastric Drainage Total 0 ml General Appearance: mild distress, Other (Chemically sedated) HEENT: Atraumatic, PERRLA Lungs: Clear to auscultation, Normal air movement Cardiovascular: Normal S1, Normal S2 Abdomen: Normal bowel sounds Skin: Dry, Intact Medications Current Medications Medications Dose Ordered Sig/Cristofer Route Start Time Stop Time Status Last Admin Dose Admin Midazolam HCl 50 ml @ 1 mls/hr Q24H IV 12/24/24 15:15 12/26/24 18:40 4 MLS/HR Nicardipine HCl 250 ml @ 50 mls/hr Q5H IV 12/24/24 16:00 12/24/24 23:53 50 MLS/HR Famotidine 20 mg DAILY IV 12/25/24 10:00 12/26/24 10:23 20 MG Hydralazine HCl 10 mg Q6HP PRN IV 12/24/24 17:30 12/26/24 12:15 10 MG Diagnostic Test (Pha) 1 strip Q6HR 12/24/24 18:00 12/27/24 05:46 1 STRIP Insulin Human Regular Q6HR SC 12/24/24 18:00 12/26/24 13:20 2 UNITS Dextrose 50 ml UD PRN IV 12/24/24 17:30 Ondansetron HCl 4 mg Q4HP PRN IV 12/24/24 17:30 Nitroglycerin 0.4 mg Q5MINP PRN SL 12/24/24 17:30 Morphine Sulfate 2 mg Q30M PRN IV 12/24/24 17:30 Acetaminophen 650 mg Q6HP PRN WV 12/24/24 17:30 12/26/24 18:56 650 MG Ceftriaxone Sodium 50 ml @ 100 mls/hr DAILY@09 IV 12/25/24 09:00 12/26/24 09:17 100 MLS/HR Propofol 100 ml @ 2.1 mls/hr Q24H IV 12/24/24 22:00 Fentanyl Citrate 250 ml @ 2.5 mls/hr Q24H IV 12/24/24 22:00 12/26/24 18:50 7.5 MLS/HR Lorazepam 1 mg Q5MINP PRN IV 12/24/24 22:15 Lacosamide 100 mg/ Sodium Chloride 60 ml @ 120 mls/hr BID IV 12/25/24 10:00 12/26/24 21:56 120 MLS/HR Doxycycline Hyclate 100 ml @ 50 mls/hr Q12H IV 12/26/24 07:45 12/27/24 06:49 50 MLS/HR Dexmedetomidine HCl 400 mcg/ Dextrose 100 ml @ 3.5 mls/hr Q24H IV 12/26/24 13:30 12/27/24 01:43 3.5 MLS/HR Laboratory Results Laboratory Tests 12/27/24 05:34 Chemistry Test 12/27/24 05:34 Calcium Level 9.6 mg/dL (8.7-10.4) Urinalysis Test 12/24/24 14:55 Urine Color Light-yellow (Yellow) Urine Clarity Turbid (Clear) H Urine pH 6.5 (5.0-9.0) Urine Specific Ebony 1.015 (1.001-1.035) Urine Protein 3+ (Negative) H Urine Ketones Trace (Negative) Urine Blood 2+ /uL (Negative) H Urine Nitrite Negative (Negative) Urine Bilirubin Negative (Negative) Urine Urobilinogen Normal mg/dL (Negative) Urine Leukocyte Esterase Trace /uL (Negative) Urine RBC 7 /hpf (0 - 3) Urine Microscopic WBC 37 /HPF (0-3) H Urine Squamous Epithelial Cells Few /hpf (<5) Urine Bacteria Few /hpf (None Seen) H Urine Hyaline Casts Mod /lpf (0 - 2) Urine Mucus Few (None Seen) Urine Glucose 3+ mg/dL (Normal) H Blood Gas Results Test 12/27/24 05:57 Arterial Blood pH 7.371 (7.350-7.450) FiO2 % 30.0 Microbiology Microbiology Date/Time Source Procedure Growth Status 12/24/24 21:55 Nose MRSA Screen - Final Complete 12/24/24 19:20 Blood Blood Culture - Preliminary NO GROWTH AFTER 48 HOURS OF INCUBATION. Resulted 12/24/24 14:54 Sputum Gram Stain - Final Resulted 12/24/24 14:54 Sputum Respiratory Culture - Preliminary Resulted Labs and/or images reviewed: Labs reviewed by me, Image(s) reviewed by me Assessment/Plan Assessment/Plan Impression: -breakthrough seizures -metabolic encephalopathy -history of seizure disorder -sirs -pulmonary vascular congestion -cannabinoid abuse -medication noncompliance. Patient currently off all antiseizure medications -respiratory failure with mechanical ventilation Plan: Events: No events overnight. Patient failed CPAP trial yesterday. Will re- attempt breathing trial today. -potassium replacement -neurology consultation: Recommendations reviewed -continue Vimpat IV -wean current sedation -NG tube to LIS, Reglan -continue current ventilator settings -PUD, DVT prophylaxis -repeat labs, chest x-ray, ABG in a.m. Critical care time spent with patient discussing and formulating plan of care: 40 minutes. This does not include time spent performing procedures. This medical document was created using an electronic medical record system with Dragon computerized dictation system. Although this document has been carefully reviewed, there may still be some phonetic and typographical errors. These areas are purely typographical due to imperfections of the software programs, and do not reflect any compromise in the patient's medical care. Plan discussed with: Patient, Other (RN) My Orders Orders - GRISEL ALONSO NP Procedure Category Date Status Time Cpap/Sed Vacation Med ORDERS 12/26/24 Transmitted Weaning 07:32 Cpap Trial For Am ORDERS 12/26/24 Transmitted 07:32 Doxycycline PHA 12/26/24 In Process 100mg/100ml 07:45 D5w 5% (Dextrose 5%) PHA 12/26/24 In Process W/Dexmedetomidine 13:30 Chest Portable XY 12/27/24 Resulted 04:00 Cpap/Sed Vacation Med ORDERS 12/27/24 Transmitted Weaning 06:49 Cpap Trial For Am ORDERS 12/27/24 Transmitted 06:49 Potassium Chl PHA 12/27/24 In Process 20meq/50ml (Potassium 07:00 Date of Service: Dec 27, 2024 Billing Provider: GRISEL ALONSO NP Common Visit Codes: 97312-[id number] CARE 30-74 MIN GRISEL ALONSO NP Dec 27, 2024 07:17
[2024-12-27] MEDS: POTASSIUM CHL 20MEQ/50ML 50 ML IV ONE (08:23)
--- NOTE | 2024-12-27 09:05 | DVHPN2 ---
Progress Note - Dictate Date Seen: Dec 27, 2024 Medical Necessity Reason Pt with a Central, PICC or Fol: Yes The following are medically ne: Central Line, Suarez Catheter Reason for suarez catheter: Strict I&O Subjective Mr. Quintana is a 59 years old left-handed gentleman with a history of hypertension, stroke, seizure disorder, he was admitted to the [facility] on 12/24/2024 with a chief complaint of seizure activity I saw him on 10/12/2023 for acute metabolic encephalopathy/seizure I have seen and examined the patient, I have discussed with his nurse and other medical staff, he was just extubated, eyes are open, but is nonresponsive to verbal stimuli or answers PER . Blood culture, 12/24/2024: Urinalysis, 12/24/2024: WBC: 37, urine leukocyte esterase: Trace UDS, 12/24/2024: Cannabinoids Plasma alcohol, 12/24/2024: <3 WBC/Hb/PLT/CP, 12/24/2024: 23.5/16.7/319/91 BUN/CR, 12/24/2024: 18/1.68 GFR, 12/24/2024: 46 HGB A1c, 12/25/2019 5:5.5 Liver function tests, 12/24/2024: Unremarkable TG/HDL/LDL/HDL, 12/24/2024: 77/172/101/58 Vitamin B12, 10/22/2023: 458 CT head, 10/04/2023: No acute intracranial abnormality (There is an old infarct involving the left parietal lobe with ex vacuo dilatation of the left lateral ventricle, unchanged) CT head, 12/24/2024: No acute intracranial process. (There is a chronic appearing infarct in the left occipital lobe with ex vacuo dilatation of the occipital horn of the left lateral ventricle.) MRI head, 10/13/2023: No evidence of acute intracranial abnormality vital signs Vital Sign Date Time Temp Pulse Resp B/P (MAP) Pulse Ox O2 Delivery O2 Flow Rate FiO2 12/27/24 08:20 68 98/59 12/27/24 07:02 18 97 30 12/27/24 06:00 Mechanical Ventilator+ 12/27/24 06:00 99.0 210.2 12/25/24 19:30 0 Total Intake and Output 12/26/24 12/26/24 12/27/24 15:00 23:00 07:00 Intake Total 527.0 ml 312.0 ml 65.5 ml Output Total 1275 ml 525 ml Balance 527.0 ml -963.0 ml -459.5 ml medications Current Medications Medications Dose Ordered Sig/Cristofer Route Start Time Stop Time Status Last Admin Dose Admin Midazolam HCl 50 ml @ 1 mls/hr Q24H IV 12/24/24 15:15 12/26/24 18:40 4 MLS/HR Nicardipine HCl 250 ml @ 50 mls/hr Q5H IV 12/24/24 16:00 12/24/24 23:53 50 MLS/HR Famotidine 20 mg DAILY IV 12/25/24 10:00 12/26/24 10:23 20 MG Hydralazine HCl 10 mg Q6HP PRN IV 12/24/24 17:30 12/26/24 12:15 10 MG Diagnostic Test (Pha) 1 strip Q6HR 12/24/24 18:00 12/27/24 05:46 1 STRIP Insulin Human Regular Q6HR SC 12/24/24 18:00 12/26/24 13:20 2 UNITS Dextrose 50 ml UD PRN IV 12/24/24 17:30 Ondansetron HCl 4 mg Q4HP PRN IV 12/24/24 17:30 Nitroglycerin 0.4 mg Q5MINP PRN SL 12/24/24 17:30 Morphine Sulfate 2 mg Q30M PRN IV 12/24/24 17:30 Acetaminophen 650 mg Q6HP PRN OR 12/24/24 17:30 12/26/24 18:56 650 MG Ceftriaxone Sodium 50 ml @ 100 mls/hr DAILY@09 IV 12/25/24 09:00 12/26/24 09:17 100 MLS/HR Propofol 100 ml @ 2.1 mls/hr Q24H IV 12/24/24 22:00 Fentanyl Citrate 250 ml @ 2.5 mls/hr Q24H IV 12/24/24 22:00 12/26/24 18:50 7.5 MLS/HR Lorazepam 1 mg Q5MINP PRN IV 12/24/24 22:15 Lacosamide 100 mg/ Sodium Chloride 60 ml @ 120 mls/hr BID IV 12/25/24 10:00 12/26/24 21:56 120 MLS/HR Doxycycline Hyclate 100 ml @ 50 mls/hr Q12H IV 12/26/24 07:45 12/27/24 06:49 50 MLS/HR Dexmedetomidine HCl 400 mcg/ Dextrose 100 ml @ 3.5 mls/hr Q24H IV 12/26/24 13:30 12/27/24 01:43 3.5 MLS/HR objective The patient is well-nourished and well-developed with no distress. MENTAL STATUS: Subjective CRANIAL NERVES: Pupils are equal, round and reactive.There is a little bit conjugated eye movement. No signs of facial weakness. Sensory and motor examination bilateral trigeminal distribution is unremarkable SENSATION: Responses to pain stimuli. MOTOR: Normal tone in the upper and lower extremity. Normal muscle bulk. No fasciculations. Minimal movement noticed in the extremities REFLEXES: Deep tendon reflexes are symmetrical. No pathological reflexes. CEREBELLAR/COORDINATION: Deferred GAIT/STATION: deferred. laboratory and microbiology Laboratory Tests 12/27/24 05:34 Test 12/27/24 05:34 Range/Units Serum Glucose 76 74-106 mg/dL Problem List Grand mal seizure, ? Triggered by hyperglycemia Seizure breakthrough, with persistent altered mental changes ? Prolonged postictal confusion ? Status epileptics ? Metabolic encephalopathy Acute respiratory failure Urinary tract infection Chronic stroke Improving Assessment/Plan Monitoring Supportive treatment EEG Follow up labs ICU care Stabilize vitals Respiratory support/vent management Discontinue Keppra Vimpat 100 mg IV twice daily Ativan for seizure breakthrough IV antibiotics ? Statin agent More history, including stroke, secondary stroke prevention This medical document was created using an electronic medical record system with [employer] dictation system. Although this document has been carefully reviewed, there may still be some phonetic and typographical errors. These areas are purely typographical due to imperfections of the software programs, and do not reflect any compromise in the Prognosis poor Dietary Evaluation Review Comments: 1. Noted plan for SBT, if passes recommend Regular diet; texture per [employer] 2. If pt to remain intubated, start TF w/ Osmolite 1.2 @ 65 ml/hr; begin at 15 ml/hr, advance by 10 ml Q4 hrs or as tolerated to goal-rate of 65 ml/hr continuously 3. Provide free water flushes of 30 ml Q4 hrs (180 ml total); adjust RPN 4. Monitor BMP/lytes and replete per protocol TF Provision: TF at goal to provide 1560 ml total volume, 1872 kcal, 86 gm pro, 0 gm fiber, 1279 ml H20 (meets 100% est. kcal needs, 100% est. pro needs) Expected Outcomes/Goals: Adeqaute nutrition, weight maintenance. Plan discussed with: Other CARMINA PATE MD Dec 27, 2024 09:05
--- NOTE | 2024-12-27 14:47 | ECG ---
[facility] Test Date: 2024-12-26 Test Time: 12:51:01 Pat Name: SYLVIA GRANADOS Department: ED Room: [address] [place] [address] Gender: M Method Consultant: gp : 1965 Requested By: DEANN FELTON Order Number: [id number] Reading MD: Dillan Nur Measurements Intervals Falcon Rate: 151 P: 81 OR: 158 QRS: 59 QRSD: 114 T: 64 QT: 274 QTc: 435 Interpretive Statements Sinus tachycardia Borderline intraventricular conduction delay Low voltage, extremity leads Artifact in lead(s) II,aVR,aVF,V1,V3,V4,V5,V6 and baseline wander in lead(s) II,III,aVF Electronically Signed On 12-28-2024 11:56:29 PDT by Dillan Nur Please click the below link to view image of tracing.
[2024-12-27] MEDS: LABETALOL HCL 20 MG/4 ML VL IV PRN (16:48)
--- NOTE | 2024-12-27 22:28 | DVHPN2 ---
Progress Note - Dictate Date Seen: Dec 27, 2024 Medical Necessity Reason Pt with a Central, PICC or Fol: Yes The following are medically ne: Central Line, Suarez Catheter Reason for suarez catheter: Strict I&O Subjective Patient seen and examined at bedside. S/p extubation, currently breathing on room air. Overnight events reviewed. vital signs Vital Sign Date Time Temp Pulse Resp B/P (MAP) Pulse Ox O2 Delivery O2 Flow Rate FiO2 12/27/24 21:00 85 11 142/94 (110) 99 12/27/24 20:00 Mechanical Ventilator+ 30 30 12/27/24 20:00 0 12/27/24 19:40 98.1 98.1 Total Intake and Output 12/26/24 12/26/24 12/27/24 15:00 23:00 07:00 Intake Total 527.0 ml 312.0 ml 165.5 ml Output Total 1275 ml 525 ml Balance 527.0 ml -963.0 ml -359.5 ml medications Current Medications Medications Dose Ordered Sig/Cristofer Route Start Time Stop Time Status Last Admin Dose Admin Midazolam HCl 50 ml @ 1 mls/hr Q24H IV 12/24/24 15:15 12/26/24 18:40 4 MLS/HR Nicardipine HCl 250 ml @ 50 mls/hr Q5H IV 12/24/24 16:00 12/24/24 23:53 50 MLS/HR Famotidine 20 mg DAILY IV 12/25/24 10:00 12/27/24 10:46 20 MG Hydralazine HCl 10 mg Q6HP PRN IV 12/24/24 17:30 12/26/24 12:15 10 MG Diagnostic Test (Pha) 1 strip Q6HR 12/24/24 18:00 12/27/24 17:35 1 STRIP Insulin Human Regular Q6HR SC 12/24/24 18:00 12/26/24 13:20 2 UNITS Dextrose 50 ml UD PRN IV 12/24/24 17:30 Ondansetron HCl 4 mg Q4HP PRN IV 12/24/24 17:30 Nitroglycerin 0.4 mg Q5MINP PRN SL 12/24/24 17:30 Morphine Sulfate 2 mg Q30M PRN IV 12/24/24 17:30 Acetaminophen 650 mg Q6HP PRN MA 12/24/24 17:30 12/26/24 18:56 650 MG Ceftriaxone Sodium 50 ml @ 100 mls/hr DAILY@09 IV 12/25/24 09:00 12/27/24 09:21 100 MLS/HR Propofol 100 ml @ 2.1 mls/hr Q24H IV 12/24/24 22:00 Fentanyl Citrate 250 ml @ 2.5 mls/hr Q24H IV 12/24/24 22:00 12/26/24 18:50 7.5 MLS/HR Lorazepam 1 mg Q5MINP PRN IV 12/24/24 22:15 Lacosamide 100 mg/ Sodium Chloride 60 ml @ 120 mls/hr BID IV 12/25/24 10:00 12/27/24 10:45 120 MLS/HR Doxycycline Hyclate 100 ml @ 50 mls/hr Q12H IV 12/26/24 07:45 12/27/24 18:41 50 MLS/HR Dexmedetomidine HCl 400 mcg/ Dextrose 100 ml @ 3.5 mls/hr Q24H IV 12/26/24 13:30 12/27/24 01:43 3.5 MLS/HR Haloperidol Lactate 2.5 mg Q8HP PRN IM 12/27/24 11:30 Labetalol HCl 10 mg Q2HPRN PRN IV 12/27/24 16:30 12/27/24 16:48 10 MG objective Gen.: Patient lying in bed in no apparent distress. Breathing on room air. Head: Normocephalic, atraumatic. Eyes: EOMI/PERRLA. Ears: Normal hearing. Normal anatomy. Neck/trachea: Trachea midline, supple. Nose: Normal external anatomy. Mouth: Moist mucous membranes. Chest: Decreased air entry bilaterally. No wheezing or rhonchi. Cardiovascular: Positive S1, positive S2. Regular rate and rhythm. Abdomen: Positive bowel sounds in all 4 quadrants. Soft, non-tender, non- distended. : Deferred. Rectal: Deferred. Skin: Warm, dry. Intact. Extremities: 2+ radial pulses bilaterally. No lower extremity edema. Neuro: Awake, alert, oriented x3. No gross motor or sensory deficits. Cranial nerves II through XII intact. Gait not assessed. laboratory and microbiology Laboratory Tests 12/27/24 05:34 Test 12/27/24 05:34 Range/Units Serum Glucose 76 74-106 mg/dL Assessment/Plan Impression: Acute hypoxic respiratory failure On mechanical ventilator Status epilepticus Hypertensive urgency Leukocytosis Events: Patient tolerated CPAP and was extubated uneventfully at 8:59 AM. Currently on room air Supplemental oxygen PRN. Antiepileptic medication Labetalol PRN, keep SBP less than 160 Continue antibiotics WBC trending down. Blood cultures show no growth after 72 hours Monitor renal function Monitor electrolytes. Supplement as necessary. Monitor ins and outs Potassium supplementation Nephrology recs appreciated. Labs and imaging reviewed. Rest of plan as noted below. Plan: s/p extubation On room air Supplemental oxygen PRN. Monitor blood pressure Labetalol PRN. Continue antibiotics. Antiepileptic medication Neurology recs appreciated Pressors if necessary for hemodynamic support Titrate to keep mean arterial pressure greater than 65 mmHg. IV fluids Monitor renal function Monitor electrolytes. Supplement as necessary. Monitor ins and outs. GI prophylaxis. DVT prophylaxis. Prognosis: Poor given patient's multiple co-morbidities. Rest of plan per hospitalist and other consultants. Thank you, BUSINESS WRITER Candelaria, for allowing me to participate in this patient's care. Further recommendations will depend on the patient's clinical course. Please do not hesitate to contact me if you have any questions or concerns. This medical document was created using an electronic medical record system with [employer] dictation system. Although these documentations are being carefully reviewed, there may still be some phonetic and typographical changes. The errors are purely typographical, due to imperfection on the software program, and do not reflect any compromise in the patient's medical care. Dietary Evaluation Review Comments: 1. Noted plan for SBT, if passes recommend Regular diet; texture per [employer]CH 2. If pt to remain intubated, start TF w/ Osmolite 1.2 @ 65 ml/hr; begin at 15 ml/hr, advance by 10 ml Q4 hrs or as tolerated to goal-rate of 65 ml/hr continuously 3. Provide free water flushes of 30 ml Q4 hrs (180 ml total); adjust RPN 4. Monitor BMP/lytes and replete per protocol TF Provision: TF at goal to provide 1560 ml total volume, 1872 kcal, 86 gm pro, 0 gm fiber, 1279 ml H20 (meets 100% est. kcal needs, 100% est. pro needs) Expected Outcomes/Goals: Adeqaute nutrition, weight maintenance. Plan discussed with: Patient, Other (BRENNON Hernandez) BOWEN PALM MD Dec 27, 2024 22:28
[2024-12-28] VITALS (53 sets, daily range): BP systolic 84–202; BP diastolic 35–125; PULSE 76–108; RESP 11–29; TEMP 98.1–99; O2SAT 92–99
[2024-12-28 03:59] LABS: Basophils # (auto) 0 10 ^3/uL (0-0.2); Basophils % (auto) 0.5 % (0.0-2.0); Eosinophils # (auto) 0.3 10 ^3/uL (0-0.8); Eosinophils % (auto) 3.7 % (0.0-7.0); Hematocrit 45.5 % (41.0-53.0); Hemoglobin 15.4 g/dL (13.5-17.5); Lymphocytes # (auto) 1.3 10 ^3/uL (0.4-5.4); Lymphocytes % (auto) 15.9 % (10.0-50.0); Mean Corpuscular Hemoglobin 30.5 pg (28.0-32.0); Mean Corpuscular Hgb Conc. 33.9 g/dL (32.0-36.0); Monocytes # (auto) 0.7 10 ^3/uL (0-1.3); Monocytes % (auto) 9.1 % (0.0-12.0); Neutrophils # (auto) 5.8 10 ^3/uL (1.6-8.6); Neutrophils % (auto) 70.8 % (37.0-80.0); Platelet Count (auto) 241 10^3/uL (140-450); Red Blood Cells 5.06 10^6/uL (4.5-5.90); Red Cell Distribution Width 14.6 % (11.8-14.3); White Blood Cell 8.2 10^3/uL (4.4-10.8)
[2024-12-28 04:16] LABS: Alanine Aminotransferase 16 U/L (7-40); Albumin 4.2 g/dL (3.2-4.8); Alkaline Phosphatase 55 U/L (46-116); Anion Gap 11 (5-15); Aspartate Aminotransferase 26 U/L (13-40); BUN/Creatinine Ratio 18.8 (10.0-20.0); Blood Urea Nitrogen 21 mg/dL (9-23); Calcium 9.8 mg/dL (8.7-10.4); Carbon Dioxide 26 mmol/L (20-31); Glucose 87 mg/dL (74-106); Potassium 3.6 mmol/L (3.5-5.1); Total Protein 6.8 g/dL (5.7-8.2)
[2024-12-28 04:17] LABS: Bilirubin, Total 0.6 mg/dL (0.2-1.0)
[2024-12-28 04:22] LABS: Chloride 110 mmol/L (98-107); Sodium 147 mmol/L (136-145)
--- NOTE | 2024-12-28 10:06 | DVHEEG2 ---
Neurology EEG Procedural Note Procedural Note EXAM DATE: 12/27/2024 REFERRING DOCTOR: Dr. Pate TECHNIQUE: Eighteen channels of EEG, 2 channels of EOG, and 1 channel of EKG were recorded using the International 10/20 system. CLINICAL DATA: The patient was referred for an EEG evaluation for the evidence of seizure disorder. MEDICATIONS: See chart BACKGROUND ACTIVITY: The record showed mostly high-amplitude delta activity over both hemispheres, that was reactive to external stimuli, intermixed with this was infrequent sharp waves, in the single spike waves over bilateral until quadrant, with a left-sided more affected. ACTIVATION: Hyperventilation: Not done Photic Stimulation: Not done Sleep: Not seen IMPRESSION: This is a remarkably abnormal EEG, this EEG seen in severe cerebral dysfunction due to metabolic/hypoxic encephalopathy or medication effects, please correlate clinically The bifrontal sharp waves, spike wave are considered epileptiform in nature, which is consistent with a pathology likely involving the left frontal/temporal head region that is potentially epileptogenic, please correlate clinically The EKG channel showed a regular heart rate of 84 per [place] [address] CARMINA PATE MD Dec 28, 2024 10:06
--- NOTE | 2024-12-28 11:02 | DVHPN2 ---
Subjective The patient is seen and examined at bedside. No complaint today. Reviewed: Care Plan, H&P, Labs, Medications Changes from previous H/P or p: No Changes General: Per HPI Eyes: No Pain, No Vision change, No Conjunctivae inflammation, No Eyelid inflammation, No Other, No Redness ENT: No Ear pain, No Ear discharge, No Nose pain, No Nose discharge, No Nose congestion, No Mouth pain, No Mouth swelling, No Throat pain, No Throat swelling, No Other Cardiovascular: No Chest Pain, No Palpitations, No Orthopnea, No Paroxysmal Noc. Dyspnea, No Edema, No Lt Headedness, No Other Respiratory: No Cough, No Dry; Shortness of breath, SOB with excertion; No Wheezing, No Hemoptysis, No Pleuritic Pain, No Sputum; Other (SOB at rest) Gastrointestinal: No Nausea, No Vomiting, No Abdominal Pain, No Diarrhea, No Constipation, No Melena, No Hematochezia, No Other Genitourinary: No Dysuria, No Frequency, No Incontinence, No Hematuria, No Retention, No Other Musculoskeletal: No other, No neck pain, No shoulder pain, No arm pain, No back pain, No hand pain, No leg pain, No foot pain Skin: No Rash, No Lesions, No Jaundice, No Bruising, No Other Objective Vitals Vital Signs Date Time Temp Pulse Resp B/P (MAP) Pulse Ox O2 Delivery O2 Flow Rate FiO2 12/28/24 07:01 93 16 170/105 (126) 95 12/28/24 06:00 Room Air* 0 21 21 12/28/24 04:00 98.1 98.1 Intake/Output Intake and Output 12/28/24 07:00 Intake Total 320 ml Output Total 950 ml Balance -630 ml Intake Oral 0 ml IV Total 320 ml Output Urine Total 950 ml Gastric Drainage Total 0 ml General Appearance: Alert, mild distress HEENT: Atraumatic, PERRLA Lungs: Clear to auscultation, Normal air movement Cardiovascular: Normal S1, Normal S2 Abdomen: Normal bowel sounds Skin: Dry, Intact Medications Current Medications Medications Dose Ordered Sig/Cristofer Route Start Time Stop Time Status Last Admin Dose Admin Midazolam HCl 50 ml @ 1 mls/hr Q24H IV 12/24/24 15:15 12/26/24 18:40 4 MLS/HR Nicardipine HCl 250 ml @ 50 mls/hr Q5H IV 12/24/24 16:00 12/24/24 23:53 50 MLS/HR Famotidine 20 mg DAILY IV 12/25/24 10:00 12/28/24 10:52 20 MG Hydralazine HCl 10 mg Q6HP PRN IV 12/24/24 17:30 12/26/24 12:15 10 MG Diagnostic Test (Pha) 1 strip Q6HR 12/24/24 18:00 12/28/24 06:00 1 STRIP Insulin Human Regular Q6HR SC 12/24/24 18:00 12/26/24 13:20 2 UNITS Dextrose 50 ml UD PRN IV 12/24/24 17:30 Ondansetron HCl 4 mg Q4HP PRN IV 12/24/24 17:30 Nitroglycerin 0.4 mg Q5MINP PRN SL 12/24/24 17:30 Morphine Sulfate 2 mg Q30M PRN IV 12/24/24 17:30 Acetaminophen 650 mg Q6HP PRN [place] 12/24/24 17:30 12/26/24 18:56 650 MG Ceftriaxone Sodium 50 ml @ 100 mls/hr DAILY@09 IV 12/25/24 09:00 12/27/24 09:21 100 MLS/HR Propofol 100 ml @ 2.1 mls/hr Q24H IV 12/24/24 22:00 Fentanyl Citrate 250 ml @ 2.5 mls/hr Q24H IV 12/24/24 22:00 12/26/24 18:50 7.5 MLS/HR Lorazepam 1 mg Q5MINP PRN IV 12/24/24 22:15 Lacosamide 100 mg/ Sodium Chloride 60 ml @ 120 mls/hr BID IV 12/25/24 10:00 12/27/24 22:37 120 MLS/HR Doxycycline Hyclate 100 ml @ 50 mls/hr Q12H IV 12/26/24 07:45 12/27/24 18:41 50 MLS/HR Dexmedetomidine HCl 400 mcg/ Dextrose 100 ml @ 3.5 mls/hr Q24H IV 12/26/24 13:30 12/27/24 01:43 3.5 MLS/HR Haloperidol Lactate 2.5 mg Q8HP PRN IM 12/27/24 11:30 Labetalol HCl 10 mg Q2HPRN PRN IV 12/27/24 16:30 12/27/24 16:48 10 MG Laboratory Results Laboratory Tests 12/28/24 03:40 Chemistry Test 12/28/24 03:40 Albumin 4.2 g/dL (3.2-4.8) Calcium Level 9.8 mg/dL (8.7-10.4) Total Protein 6.8 g/dL (5.7-8.2) LFT Test 12/28/24 03:40 Alanine Aminotransferase (ALT) 16 U/L (7-40) Alkaline Phosphatase 55 U/L (46-116) Aspartate Amino Transferase (AST) 26 U/L (13-40) Total Bilirubin 0.6 mg/dL (0.2-1.0) Urinalysis Test 12/24/24 14:55 Urine Color Light-yellow (Yellow) Urine Clarity Turbid (Clear) H Urine pH 6.5 (5.0-9.0) Urine Specific [place] 1.015 (1.001-1.035) Urine Protein 3+ (Negative) H Urine Ketones Trace (Negative) Urine Blood 2+ /uL (Negative) H Urine Nitrite Negative (Negative) Urine Bilirubin Negative (Negative) Urine Urobilinogen Normal mg/dL (Negative) Urine Leukocyte Esterase Trace /uL (Negative) Urine RBC 7 /hpf (0 - 3) Urine Microscopic WBC 37 /HPF (0-3) H Urine Squamous Epithelial Cells Few /hpf (<5) Urine Bacteria Few /hpf (None Seen) H Urine Hyaline Casts Mod /lpf (0 - 2) Urine Mucus Few (None Seen) Urine Glucose 3+ mg/dL (Normal) H Microbiology Microbiology Date/Time Source Procedure Growth Status 12/24/24 21:55 Nose MRSA Screen - Final Complete 12/24/24 19:20 Blood Blood Culture - Preliminary NO GROWTH AFTER 72 HOURS OF INCUBATION. Resulted 12/24/24 14:54 Sputum Gram Stain - Final Resulted 12/24/24 14:54 Sputum Respiratory Culture - Preliminary Resulted Labs and/or images reviewed: Labs reviewed by me Assessment/Plan Assessment/Plan -breakthrough seizures -metabolic encephalopathy -history of seizure disorder -sirs -pulmonary vascular congestion -cannabinoid abuse -medication noncompliance. Patient currently off all antiseizure medications -respiratory failure with mechanical ventilation Plan: Continuing current management -potassium replacement -neurology consultation: Recommendations reviewed -continue Vimpat IV Swallow eval in started on diet if patient pass swallow eval This medical document was created using an electronic medical record system with [employer] direct computerized dictation system. Although this document has been carefully reviewed, there may still be some phonetic and typographical errors. These areas are purely typographical due to imperfections of the software programs, and do not reflect any compromise in the patient's medical care. Plan discussed with: Patient Date of Service: Dec 28, 2024 Billing Provider: RELL ORELLANA MD Common Visit Codes: [id number] INP/OBS CARE(HIGH) RELL ORELLANA MD Dec 28, 2024 11:02
--- NOTE | 2024-12-28 11:35 | DVHPN2 ---
Progress Note - Dictate Date Seen: Dec 28, 2024 Medical Necessity Reason Pt with a Central, PICC or Fol: Yes The following are medically ne: Central Line, Suarez Catheter Reason for suarez catheter: Strict I&O Subjective Mr. Quintana is a 59 years old left-handed gentleman with a history of hypertension, stroke, seizure disorder, he was admitted to the [facility] on 12/24/2024 with a chief complaint of seizure activity I saw him on 10/12/2023 for acute metabolic encephalopathy/seizure I have seen and examined the patient, I have discussed with his nurse, he was awake, oriented to person, possibly to place as well, not able to provide a history I talked to his sister and son today, they really he has seizure once a while, but he was not on seizure medication PER , no in service. [phone] Blood culture, 12/24/2024: Urinalysis, 12/24/2024: WBC: 37, urine leukocyte esterase: Trace UDS, 12/24/2024: Cannabinoids Plasma alcohol, 12/24/2024: <3 WBC/Hb/PLT/CP, 12/24/2024: 23.5/16.7/319/91 BUN/CR, 12/24/2024: 18/1.68 GFR, 12/24/2024: 46 HGB A1c, 12/25/2019 5:5.5 Liver function tests, 12/24/2024: Unremarkable TG/HDL/LDL/HDL, 12/24/2024: 77/172/101/58 Vitamin B12, 10/22/2023: 458 EEG, 12/27/2024: A remarkably abnormal EEG with epileptiform discharge from the left anterior quadrant CT head, 10/04/2023: No acute intracranial abnormality (There is an old infarct involving the left parietal lobe with ex vacuo dilatation of the left lateral ventricle, unchanged) CT head, 12/24/2024: No acute intracranial process. (There is a chronic appearing infarct in the left occipital lobe with ex vacuo dilatation of the occipital horn of the left lateral ventricle.) MRI head, 10/13/2023: No evidence of acute intracranial abnormality vital signs Vital Sign Date Time Temp Pulse Resp B/P (MAP) Pulse Ox O2 Delivery O2 Flow Rate FiO2 3/28/25 07:01 93 16 170/105 (126) 95 12/28/24 06:00 Room Air* 0 21 21 12/28/24 04:00 98.1 98.1 Total Intake and Output 12/27/24 12/27/24 12/28/24 15:00 23:00 07:00 Intake Total 160 ml 160 ml 0 ml Output Total 450 ml 500 ml Balance 160 ml -290 ml -500 ml medications Current Medications Medications Dose Ordered Sig/Cristofer Route Start Time Stop Time Status Last Admin Dose Admin Midazolam HCl 50 ml @ 1 mls/hr Q24H IV 12/24/24 15:15 12/26/24 18:40 4 MLS/HR Nicardipine HCl 250 ml @ 50 mls/hr Q5H IV 12/24/24 16:00 12/24/24 23:53 50 MLS/HR Famotidine 20 mg DAILY IV 12/25/24 10:00 12/28/24 10:52 20 MG Hydralazine HCl 10 mg Q6HP PRN IV 12/24/24 17:30 12/26/24 12:15 10 MG Diagnostic Test (Pha) 1 strip Q6HR 12/24/24 18:00 12/28/24 06:00 1 STRIP Insulin Human Regular Q6HR SC 12/24/24 18:00 12/26/24 13:20 2 UNITS Dextrose 50 ml UD PRN IV 12/24/24 17:30 Ondansetron HCl 4 mg Q4HP PRN IV 12/24/24 17:30 Nitroglycerin 0.4 mg Q5MINP PRN SL 12/24/24 17:30 Morphine Sulfate 2 mg Q30M PRN IV 12/24/24 17:30 Acetaminophen 650 mg Q6HP PRN [place] 12/24/24 17:30 12/26/24 18:56 650 MG Ceftriaxone Sodium 50 ml @ 100 mls/hr DAILY@09 IV 12/25/24 09:00 12/28/24 11:14 100 MLS/HR Propofol 100 ml @ 2.1 mls/hr Q24H IV 12/24/24 22:00 Fentanyl Citrate 250 ml @ 2.5 mls/hr Q24H IV 12/24/24 22:00 12/26/24 18:50 7.5 MLS/HR Lorazepam 1 mg Q5MINP PRN IV 12/24/24 22:15 Lacosamide 100 mg/ Sodium Chloride 60 ml @ 120 mls/hr BID IV 12/25/24 10:00 12/27/24 22:37 120 MLS/HR Doxycycline Hyclate 100 ml @ 50 mls/hr Q12H IV 12/26/24 07:45 12/27/24 18:41 50 MLS/HR Dexmedetomidine HCl 400 mcg/ Dextrose 100 ml @ 3.5 mls/hr Q24H IV 12/26/24 13:30 12/27/24 01:43 3.5 MLS/HR Haloperidol Lactate 2.5 mg Q8HP PRN IM 12/27/24 11:30 Labetalol HCl 10 mg Q2HPRN PRN IV 12/27/24 16:30 12/27/24 16:48 10 MG objective The patient is well-nourished and well-developed with no distress. MENTAL STATUS: Subjective CRANIAL NERVES: Pupils are equal, round and reactive.There is a little bit conjugated eye movement. No signs of facial weakness. Sensory and motor examination bilateral trigeminal distribution is unremarkable SENSATION: Responses to pain stimuli. MOTOR: Normal tone in the upper and lower extremity. Normal muscle bulk. No fasciculations. Muscle power in the extremities feels normal REFLEXES: Deep tendon reflexes are symmetrical. No pathological reflexes. CEREBELLAR/COORDINATION: Deferred GAIT/STATION: deferred. laboratory and microbiology Laboratory Tests 12/28/24 03:40 Test 12/28/24 03:40 Range/Units Serum Glucose 87 74-106 mg/dL Problem List Grand mal seizure, ? Triggered by hyperglycemia Seizure breakthrough, with persistent altered mental changes ? Prolonged postictal confusion ? Status epileptics ? Metabolic encephalopathy Acute respiratory failure Urinary tract infection Chronic stroke Assessment/Plan Monitoring Supportive treatment Follow up labs ICU care Stabilize vitals Respiratory support Discontinue Keppra Vimpat 100 mg IV twice daily Ativan for seizure breakthrough IV antibiotics ? Statin agent More history, including stroke, secondary stroke prevention This medical document was created using an electronic medical record system with [employer] system. Although this document has been carefully reviewed, there may still be some phonetic and typographical errors. These areas are purely typographical due to imperfections of the software programs, and do not reflect any compromise in the Prognosis poor Dietary Evaluation Review Comments: 1. Noted plan for SBT, if passes recommend Regular diet; texture per [employer] 2. If pt to remain intubated, start TF w/ Osmolite 1.2 @ 65 ml/hr; begin at 15 ml/hr, advance by 10 ml Q4 hrs or as tolerated to goal-rate of 65 ml/hr continuously 3. Provide free water flushes of 30 ml Q4 hrs (180 ml total); adjust RPN 4. Monitor BMP/lytes and replete per protocol TF Provision: TF at goal to provide 1560 ml total volume, 1872 kcal, 86 gm pro, 0 gm fiber, 1279 ml H20 (meets 100% est. kcal needs, 100% est. pro needs) Expected Outcomes/Goals: Adeqaute nutrition, weight maintenance. Plan discussed with: Kelsey Mansfield QUANWEI MD Dec 28, 2024 11:35
[2024-12-28 13:48] LABS: Urine Bacteria FEW /hpf (None Seen); Urine Blood 3+ /uL (Negative); Urine Clarity Turbid (Clear); Urine Color Yellow (Yellow); Urine Mucus FEW (None Seen); Urine Protein, UAD 2+ (Negative); Urine Specific Gravity 1.014 (1.001-1.035); Urine Squamous Epithelial Cell FEW /hpf (<5); Urine Urobilinogen Normal (Negative); Urine WBC 20 /HPF (0-3); Urine pH 5.5 (5.0-9.0)
--- NOTE | 2024-12-28 23:46 | DVHPN2 ---
Progress Note - Dictate Date Seen: Dec 28, 2024 Medical Necessity Reason Pt with a Central, PICC or Fol: Yes The following are medically ne: Central Line, Suarez Catheter Reason for suarez catheter: Strict I&O Subjective Patient seen and examined at bedside. Breathing on room air. Overnight events reviewed. vital signs Vital Sign Date Time Temp Pulse Resp B/P (MAP) Pulse Ox O2 Delivery O2 Flow Rate FiO2 12/28/24 23:16 167/70 12/28/24 21:45 81 14 95 12/28/24 19:40 98.1 98.1 12/28/24 19:40 Room Air* 0 21 Total Intake and Output 12/27/24 12/27/24 12/28/24 15:00 23:00 07:00 Intake Total 160 ml 160 ml 0 ml Output Total 450 ml 500 ml Balance 160 ml -290 ml -500 ml medications Current Medications Medications Dose Ordered Sig/Cristofer Route Start Time Stop Time Status Last Admin Dose Admin Nicardipine HCl 250 ml @ 50 mls/hr Q5H IV 12/24/24 16:00 12/28/24 11:15 50 MLS/HR Famotidine 20 mg DAILY IV 12/25/24 10:00 12/28/24 10:52 20 MG Hydralazine HCl 10 mg Q6HP PRN IV 12/24/24 17:30 12/28/24 23:16 10 MG Diagnostic Test (Pha) 1 strip Q6HR 12/24/24 18:00 12/28/24 17:50 1 STRIP Insulin Human Regular Q6HR SC 12/24/24 18:00 12/26/24 13:20 2 UNITS Dextrose 50 ml UD PRN IV 12/24/24 17:30 Ondansetron HCl 4 mg Q4HP PRN IV 12/24/24 17:30 Nitroglycerin 0.4 mg Q5MINP PRN SL 12/24/24 17:30 Morphine Sulfate 2 mg Q30M PRN IV 12/24/24 17:30 Acetaminophen 650 mg Q6HP PRN [place] 12/24/24 17:30 12/26/24 18:56 650 MG Ceftriaxone Sodium 50 ml @ 100 mls/hr DAILY@09 IV 12/25/24 09:00 12/28/24 11:14 100 MLS/HR Lorazepam 1 mg Q5MINP PRN IV 12/24/24 22:15 Lacosamide 100 mg/ Sodium Chloride 60 ml @ 120 mls/hr BID IV 12/25/24 10:00 12/28/24 23:15 120 MLS/HR Dexmedetomidine HCl 400 mcg/ Dextrose 100 ml @ 3.5 mls/hr Q24H IV 12/26/24 13:30 12/27/24 01:43 3.5 MLS/HR Haloperidol Lactate 2.5 mg Q8HP PRN IM 12/27/24 11:30 Labetalol HCl 10 mg Q2HPRN PRN IV 12/27/24 16:30 12/28/24 18:28 10 MG Doxycycline Hyclate 100 ml @ 50 mls/hr Q12H IV 12/29/24 00:00 objective Gen.: Patient lying in bed in no apparent distress. Breathing on room air. Head: Normocephalic, atraumatic. Eyes: EOMI/PERRLA. Ears: Normal hearing. Normal anatomy. Neck/trachea: Trachea midline, supple. Nose: Normal external anatomy. Mouth: Moist mucous membranes. Chest: Decreased air entry bilaterally. No wheezing or rhonchi. Cardiovascular: Positive S1, positive S2. Regular rate and rhythm. Abdomen: Positive bowel sounds in all 4 quadrants. Soft, non-tender, non- distended. : Deferred. Rectal: Deferred. Skin: Warm, dry. Intact. Extremities: 2+ radial pulses bilaterally. No lower extremity edema. Neuro: Awake, alert, oriented x3. No gross motor or sensory deficits. Cranial nerves II through XII intact. Gait not assessed. laboratory and microbiology Laboratory Tests 12/28/24 03:40 Test 12/28/24 03:40 Range/Units Serum Glucose 87 74-106 mg/dL Assessment/Plan Impression: Acute hypoxic respiratory failure Status epilepticus Hypertensive urgency Leukocytosis Events: Remains on room air Supplemental oxygen PRN. No distress. Antiepileptic medication- continue Vimpat Labetalol PRN, keep SBP less than 160 Continue antibiotics WBC trending down. Blood cultures show no growth after 72 hours Monitor renal function Monitor electrolytes. Supplement as necessary. Monitor ins and outs Potassium supplementation Nephrology recs appreciated. Accu-Cheks Blood pressure control Patient is stable for downgrade from the pulmonary standpoint if blood pressure remains controlled. Labs and imaging reviewed. Rest of plan as noted below. Plan: s/p extubation on 12/27/24 On room air Supplemental oxygen PRN. Monitor blood pressure Labetalol PRN. Continue antibiotics. Antiepileptic medication Neurology recs appreciated Pressors if necessary for hemodynamic support Titrate to keep mean arterial pressure greater than 65 mmHg. IV fluids Monitor renal function Monitor electrolytes. Supplement as necessary. Monitor ins and outs. GI prophylaxis. DVT prophylaxis. Prognosis: Poor given patient's multiple co-morbidities. Condition: Critical Rest of plan per hospitalist and other consultants. A total of 35 minutes of critical care time was spent reviewing the patient record, examining the patient, making a diagnostic and therapeutic plan, discussing this plan with the medical personnel, following up on diagnostic studies and following the patient for clinical stability excluding any and all procedures. At least 50% of this time was spent in direct, [id number] contact. Thank you, YOSSI Gaona, for allowing me to participate in this patient's care. Further recommendations will depend on the patient's clinical course. Please do not hesitate to contact me if you have any questions or concerns. This medical document was created using an electronic medical record system with [employer] dictation system. Although these documentations are being carefully reviewed, there may still be some phonetic and typographical changes. The errors are purely typographical, due to imperfection on the software program, and do not reflect any compromise in the patient's medical care. Dietary Evaluation Review Comments: 1. Noted plan for SBT, if passes recommend Regular diet; texture per LICENSING REPRESENTATIVE 2. If pt to remain intubated, start TF w/ Osmolite 1.2 @ 65 ml/hr; begin at 15 ml/hr, advance by 10 ml Q4 hrs or as tolerated to goal-rate of 65 ml/hr continuously 3. Provide free water flushes of 30 ml Q4 hrs (180 ml total); adjust RPN 4. Monitor BMP/lytes and replete per protocol TF Provision: TF at goal to provide 1560 ml total volume, 1872 kcal, 86 gm pro, 0 gm fiber, 1279 ml H20 (meets 100% est. kcal needs, 100% est. pro needs) Expected Outcomes/Goals: Adeqaute nutrition, weight maintenance. Plan discussed with: Other (BRENNON Pham) Critical Care Time(min): 35 BOWEN PALM MD Dec 28, 2024 23:46
[2024-12-29] MEDS: DOXYCYCLINE 100MG/100ML 100 ML IV SCH (00:58)
[2024-12-29 01:00] VITALS: BP 157/115; PULSE 81; RESP 18; TEMP 97.8; O2SAT 98
[2024-12-29 05:00] VITALS: BP 171/103; PULSE 73; RESP 19; TEMP 98.1; O2SAT 98
[2024-12-29 08:15] VITALS: PULSE 73
[2024-12-29 09:00] VITALS: BP 154/111; PULSE 93; RESP 16; TEMP 98.1; O2SAT 92
[2024-12-29] MEDS: HALOPERIDOL LACTATE 5 MG/ML INJ VIAL IM PRN (10:13)
[2024-12-29 13:00] VITALS: BP 114/87; PULSE 77; RESP 18; TEMP 97.6; O2SAT 99
--- NOTE | 2024-12-29 21:17 | DVHPN2 ---
Progress Note - Dictate Date Seen: Dec 29, 2024 Medical Necessity Reason Pt with a Central, PICC or Fol: Yes The following are medically ne: Central Line, Suarez Catheter Reason for suarez catheter: Strict I&O Subjective Patient seen and examined at bedside. Breathing on room air. Overnight events reviewed. vital signs Vital Sign Date Time Temp Pulse Resp B/P (MAP) Pulse Ox O2 Delivery O2 Flow Rate FiO2 12/29/24 13:00 97.6 77 18 114/87 (96) 99 97.6 12/29/24 08:15 Room Air* 0 21 Total Intake and Output 12/28/24 12/28/24 12/29/24 15:00 23:00 07:00 Intake Total 600 ml 1815 ml Output Total 625 ml 750 ml Balance -25 ml 1065 ml objective Gen.: Patient lying in bed in no apparent distress. Breathing on room air. Head: Normocephalic, atraumatic. Eyes: EOMI/PERRLA. Ears: Normal hearing. Normal anatomy. Neck/trachea: Trachea midline, supple. Nose: Normal external anatomy. Mouth: Moist mucous membranes. Chest: Decreased air entry bilaterally. No wheezing or rhonchi. Cardiovascular: Positive S1, positive S2. Regular rate and rhythm. Abdomen: Positive bowel sounds in all 4 quadrants. Soft, non-tender, non- distended. : Deferred. Rectal: Deferred. Skin: Warm, dry. Intact. Extremities: 2+ radial pulses bilaterally. No lower extremity edema. Neuro: Awake, alert, oriented x3. No gross motor or sensory deficits. Cranial nerves II through XII intact. Gait not assessed. laboratory and microbiology Laboratory Tests 12/28/24 03:40 Test 12/28/24 03:40 Range/Units Serum Glucose 87 74-106 mg/dL Assessment/Plan Impression: Acute hypoxic respiratory failure Status epilepticus Hypertensive urgency Leukocytosis Events: Remains on room air Supplemental oxygen PRN. No distress. Antiepileptic medication- continue Vimpat Nonadherent Labetalol/hydralazine PRN systolic blood pressure above 150 Continue antibiotics WBC trending down. Blood cultures show no growth after 5 days Monitor renal function Monitor electrolytes. Supplement as necessary. Monitor ins and outs Nephrology recs appreciated. Accu-Cheks Blood pressure control Labs and imaging reviewed. Rest of plan as noted below. Plan: s/p extubation on 12/27/24 On room air Supplemental oxygen PRN. Monitor blood pressure Labetalol PRN. Continue antibiotics. Antiepileptic medication Neurology recs appreciated Pressors if necessary for hemodynamic support Titrate to keep mean arterial pressure greater than 65 mmHg. IV fluids Monitor renal function Monitor electrolytes. Supplement as necessary. Monitor ins and outs. GI prophylaxis. DVT prophylaxis. Prognosis: Poor given patient's multiple co-morbidities. Rest of plan per hospitalist and other consultants. Thank you, NETWORK FIELD ENGINEER Candelaria, for allowing me to participate in this patient's care. Further recommendations will depend on the patient's clinical course. Please do not hesitate to contact me if you have any questions or concerns. This medical document was created using an electronic medical record system with [employer] dictation system. Although these documentations are being carefully reviewed, there may still be some phonetic and typographical changes. The errors are purely typographical, due to imperfection on the software program, and do not reflect any compromise in the patient's medical care. Dietary Evaluation Review Comments: 1. Noted plan for SBT, if passes recommend Regular diet; texture per SLIP CASTER 2. If pt to remain intubated, start TF w/ Osmolite 1.2 @ 65 ml/hr; begin at 15 ml/hr, advance by 10 ml Q4 hrs or as tolerated to goal-rate of 65 ml/hr continuously 3. Provide free water flushes of 30 ml Q4 hrs (180 ml total); adjust RPN 4. Monitor BMP/lytes and replete per protocol TF Provision: TF at goal to provide 1560 ml total volume, 1872 kcal, 86 gm pro, 0 gm fiber, 1279 ml H20 (meets 100% est. kcal needs, 100% est. pro needs) Expected Outcomes/Goals: Adeqaute nutrition, weight maintenance. Plan discussed with: Patient, Spouse, Other (BRENNON Joe) BOWEN PALM MD Dec 29, 2024 21:17
--- NOTE | 2024-12-29 22:57 | DVHDS2 ---
Discharge Summary Date of Admission Dec 24, 2024 at 17:18 Date of Discharge: Dec 29, 2024 Admitting Diagnosis -breakthrough seizures -metabolic encephalopathy -history of seizure disorder -sirs -pulmonary vascular congestion -cannabinoid abuse -medication noncompliance. Patient currently off all antiseizure medications -respiratory failure with mechanical ventilation Labs/Diagnostic Data: Laboratory Results Test 12/28/24 13:26 12/28/24 03:40 12/27/24 05:57 12/26/24 13:05 Urine Color Yellow (Yellow) Urine Clarity Turbid (Clear) Urine pH 5.5 (5.0-9.0) Urine Specific [place] 1.014 (1.001-1.035) Urine Protein 2+ (Negative) Urine Ketones Negative (Negative) Urine Blood 3+ /uL (Negative) Urine Nitrite Negative (Negative) Urine Bilirubin Negative (Negative) Urine Urobilinogen Normal mg/dL (Negative) Urine Leukocyte Esterase Negative /uL (Negative) Urine RBC 63 /hpf (0 - 3) Urine Microscopic WBC 20 /HPF (0-3) Urine Squamous Epithelial Cells Few /hpf (<5) Urine Bacteria Few /hpf (None Seen) Urine Mucus Few (None Seen) Urine Glucose Normal mg/dL (Normal) White Blood Count 8.2 10^3/uL (4.4-10.8) Red Blood Count 5.06 10^6/uL (4.5-5.90) Hemoglobin 15.4 g/dL (13.5-17.5) Hematocrit 45.5 % (41.0-53.0) Mean Corpuscular Volume 90.0 fL (80.0-100.0) Mean Corpuscular Hemoglobin 30.5 pg (28.0-32.0) Mean Corpuscular Hemoglobin Concent 33.9 g/dL (32.0-36.0) Red Cell Distribution Width 14.6 % (11.8-14.3) Platelet Count 241 10^3/uL (140-450) Mean Platelet Volume 7.6 fL (6.9-10.8) Neutrophils (%) (Auto) 70.8 % (37.0-80.0) Lymphocytes (%) (Auto) 15.9 % (10.0-50.0) Monocytes (%) (Auto) 9.1 % (0.0-12.0) Eosinophils (%) (Auto) 3.7 % (0.0-7.0) Basophils (%) (Auto) 0.5 % (0.0-2.0) Neutrophils # (Auto) 5.8 10 ^3/uL (1.6-8.6) Lymphocytes # (Auto) 1.3 10 ^3/uL (0.4-5.4) Monocytes # (Auto) 0.7 10 ^3/uL (0-1.3) Eosinophils # (Auto) 0.3 10 ^3/uL (0-0.8) Basophils # (Auto) 0 10 ^3/uL (0-0.2) Nucleated Red Blood Cells 0.0 % Sodium Level 147 mmol/L (136-145) Potassium Level 3.6 mmol/L (3.5-5.1) Chloride Level 110 mmol/L (98-107) Carbon Dioxide Level 26 mmol/L (20-31) Anion Gap 11 (5-15) Blood Urea Nitrogen 21 mg/dL (9-23) Creatinine 1.12 mg/dL (0.700-1.30) Glomerular Filtration Rate Calc 75 mL/min (>90) BUN/Creatinine Ratio 18.8 (10.0-20.0) Serum Glucose 87 mg/dL (74-106) Calcium Level 9.8 mg/dL (8.7-10.4) Total Bilirubin 0.6 mg/dL (0.2-1.0) Aspartate Amino Transferase (AST) 26 U/L (13-40) Alanine Aminotransferase (ALT) 16 U/L (7-40) Alkaline Phosphatase 55 U/L (46-116) Total Protein 6.8 g/dL (5.7-8.2) Albumin 4.2 g/dL (3.2-4.8) Blood Gas Specimen Type Arterial Blood Gas Sample Site Right radial Blood Gas Patient Temperature 37.0 Arterial Blood Date Drawn [id number] Arterial Blood pH 7.371 (7.350-7.450) Arterial Blood Partial Pressure CO2 48.9 mmHg (35.0-48.0) Arterial Blood Partial Pressure O2 86.0 mmHg (83.0-108.0) Arterial Blood HCO3 27.7 mmol/L (21.0-28.0) Arterial Blood Oxygen Saturation 96.4 % (94.0-98.0) Arterial Blood Base Excess 1.6 mmol/L (-2.0-3.0) Arterial Blood Oxyhemoglobin 94.9 % (94.0-98.0) Arterial Blood Carboxyhemoglobin 1.0 % (0.5-1.5) Arterial Blood Methemoglobin 0.6 % (0.0-1.5) [place] Test Modified Blood Gas Total Hemoglobin 15.60 g/dL (13.5-17.5) Blood Gas Set Respiration Rate 18.0 Blood Gas Modality Vent - ac FiO2 % 30.0 Blood Gas Tidal Volume 450.0 Blood Gas PEEP or CPAP 5.0 POC Glucose 145 mg/dl (70-106) Test 12/25/24 04:40 12/24/24 18:10 12/24/24 15:41 12/24/24 14:55 Phosphorus Level 4.5 mg/dL (2.4-5.1) Magnesium Level 2.1 mg/dL (1.6-2.6) Creatine Kinase 178 U/L (46-171) Lactic Acid Level 1.1 mmol/L (0.4-2.0) Blood Gas Critical Value Read Back Yes Blood Gas Notified Whom emory Ayala Blood Gas Notified Time [id number] Blood Gas Notified By [employer] Logger james jernigan Urine Hyaline Casts Mod /lpf (0 - 2) Urine Opiates Screen Neg (NEGATIVE) Urine Fentanyl Screen Neg (NEGATIVE) Urine Barbiturates Screen Neg (NEGATIVE) Urine Phencyclidine Screen Neg (NEGATIVE) Urine Amphetamines Screen Neg (NEGATIVE) Urine Benzodiazepines Screen Pos (NEGATIVE) Urine Cocaine Screen Neg (NEGATIVE) Urine Cannabinoids Screen Pos (NEGATIVE) Test 12/24/24 14:40 Hemoglobin A1c 5.5 % A1C (<5.7) Triglycerides Level 77 mg/dL (< 150) Cholesterol Level 172 mg/dL (< 200) LDL Cholesterol 101 mg/dL (< 100) HDL Cholesterol 58 mg/dL (40-59) Salicylates Level < 3.0 mg/dL (-30) Acetaminophen Level < 2.0 UG/ML (10.0-20.0) Plasma/Serum Blood Alcohol < 3.0 mg/dL (<10) Other Laboratory Tests 12/28/24 03:40 Brief Hx & Hospital Course: This is 59-year-old male with unknown past medical history presented to [facility] ED with complaint of seizure. As reported by EMS, patient's girlfriend called 911 after patient having persistent seizure. When EMS arrived on the scene, patient was seizing for about an hour and was given 5 mg of Versed. Girlfriend was a poor historian, unable to obtain medical history. Patient was seen and evaluated in the ED with persistent seizure, acute respiratory failure, getting worse that he was intubated. Laboratory data shows WBC 23.5, platelets 319, sodium 140, potassium 4.0, BUN 18, creatinine 1.68, GFR 46, glucose 272, albumin 4.9, blood pressure 184/117 trending down to 146/86, heart rate 126 trending down to 82, temperature 97.6 F, O2 saturation 99% on ventilator. Head CT showed no acute intracranial process. The patient was admitted to ICU. The patient was given IV pain medication, the patient was given IV hypertensive medication and IV antibiotic and seizure medication. Subsequently the patient has extubate. The patient passed swallow eval and able to eat. The patient still very weak and required physical therapy however he become very anxious and decided to leave against medical advice. The patient verbally understand it if he did not have a full treatment he might have seizure, fall and will come back to hospital however he decided to leave against medical advice still. Physical exam: HEENT: Normocephalic atraumatic pupils equal react to light and accommodation. Extraocular muscles intact, conjunctiva pink, oropharynx moist, no thrush, no exudate. Lymphatic: No lymphadenopathy Cardiovascular exam: S1, S2 was heard. No murmurs, rubs, gallops Lung: Clear on auscultation bilaterally, no wheeze, rale, rhonchi. GI: Abdominal soft, nondistended, nontenderness, positive bowel sounds. Extremity: No crepitus, cyanosis, edema. Pedal pulses present bilateral. Full range of motion. Skin: Normal turgor, no rash. Psych: Alert, oriented x3. Neurology: No focal deficits, cranial nerve II to XII grossly intact. Condition at Discharge: Guarded Final Diagnosis/Problems List -breakthrough seizures -metabolic encephalopathy -history of seizure disorder -sirs -pulmonary vascular congestion -cannabinoid abuse -medication noncompliance. Patient currently off all antiseizure medications -respiratory failure with mechanical ventilation Discharge Disposition: AMA Discharge Statement: "Patient was advised to return to the ER or call 911 if any headaches, dizziness, shortness of breath, chest pain, abdominal pain, bleeding, fevers, or worsening of medical condition. Patient was counseled about treatment plan, medications, possible side effects, patientverbalized understanding. All questions were answered to the best of my ability. This discharge took greater then 30 minutes in planning, reviewing documentation, counseling the patient, and discussing with other team members." ASSESSMENT ASSESSMENT Assessment Date of Service: Dec 29, 2024 Billing Provider: RELL ORELLANA MD Common Visit Codes: 96723-[facility]/OBS DISCH DAY >30min RELL ORELLANA MD Dec 29, 2024 22:57
== END 2024-12-29 13:34 | disposition left against medical advice (07) | DRG 53 ==
LOC: ER 14:22 → EDBD 14:22 → OVERFLOW 17:18 → EDBD 17:18 → EDUNIT# 17:18 → TELE-WESTW 12-28 22:44
PROVIDERS: ADMIT Internal Medicine; ATTEND Internal Medicine
PROC: 5A1945Z Respiratory Ventilation, 24-96 Consecutive Hours (ICD-10-PCS; principal; 2024-12-24)
PROC: 0BH17EZ Insertion of Endotracheal Airway into Trachea, Via Natural or Artificial Opening (ICD-10-PCS; 2024-12-24)
PROC: 02HV33Z Insertion of Infusion Device into Superior Vena Cava, Percutaneous Approach (ICD-10-PCS; 2024-12-24)
PROC: B548ZZA Ultrasonography of Superior Vena Cava, Guidance (ICD-10-PCS; 2024-12-24)
DX: G40.901 Epilepsy, unspecified, not intractable, with status epilepticus (principal); J96.01 Acute respiratory failure with hypoxia; N17.0 Acute kidney failure with tubular necrosis; G93.41 Metabolic encephalopathy; R65.10 Systemic inflammatory response syndrome (SIRS) of non-infectious origin without acute organ dysfunction; F12.10 Cannabis abuse, uncomplicated; I16.0 Hypertensive urgency; I10 Essential (primary) hypertension; N39.0 Urinary tract infection, site not specified; E87.6 Hypokalemia; F17.200 Nicotine dependence, unspecified, uncomplicated; Z53.29 Procedure and treatment not carried out because of patient's decision for other reasons; Z79.899 Other long term (current) drug therapy; Z91.148 Patient's other noncompliance with medication regimen for other reason; Z86.73 Personal history of transient ischemic attack (TIA), and cerebral infarction without residual deficits; Z83.3 Family history of diabetes mellitus; Z82.49 Family history of ischemic heart disease and other diseases of the circulatory system; Z81.8 Family history of other mental and behavioral disorders
CPT/HCPCS: 31500; 36415; 36556; 36600; 70450; 71045; 80048; 80053; 80061; 80307; 80320; 80329; 81001; 82550; 82805; 82962; 83036; 83605; 83735; 84100; 85025; 87040; 87070; 87077; 87081; 87186; 87205; 93005; 94002; 94003; 95819; 99152; 99291; C9254; G0378; J1815; J3490; J7060